=== PATIENT | female | born 1965 | race Caucasian/White ===

== ENCOUNTER 2020-10-27 10:00 | Emergency (ER) | payer MEDICARE, OTHER, SELFPAY ==
--- NOTE | ~2020-10-27 | US_ITS ---
EXAMINATION: US ABDOMEN LIMITED CLINICAL INFORMATION: Right upper quadrant pain. COMPARISON: None TECHNIQUE: Real-time imaging of the right upper quadrant abdominal viscera. FINDINGS: PANCREAS: No abnormal mass identified. No pancreatic duct dilatation is seen. No peripancreatic fluid. LIVER: There is a 7 mm cyst seen within the right lobe. No suspicious solid mass identified. The liver is normal in size. The liver contour is normal. Parenchymal echogenicity is normal. There is no intrahepatic biliary duct dilatation seen. GALLBLADDER: Cholelithiasis is present. No definite gallbladder wall thickening or fluid within the gallbladder wall is seen. No pericholecystic fluid is noted. There is tenderness to palpation overlying the gallbladder wall scanning. COMMON BILE DUCT: Normal in caliber measuring 0.3 cm in diameter. RIGHT KIDNEY: Normal. No hydronephrosis. No renal calculi or focal parenchymal lesions. The kidney measures 11.8 cm in maximum dimension. FREE FLUID: None. US/US abdomen limited IMPRESSION: Cholelithiasis without definite acute cholecystitis.
[2020-10-27 10:06] VITALS: BP 128/69; PULSE 92; RESP 18; TEMP 36.7; O2SAT 99; BMI 34.3
[2020-10-27 12:18] LABS: MANUAL DIFF FLAG NO
[2020-10-27 12:22] LABS: Glucose Urine UA NEG (NEG); Leukocyte Esterase Urine NEG (NEG); Nitrite Urine NEG (NEG); Specific Gravity - Urine 1.025 (1.005-1.025); Urine Blood NEG (NEG); Urine Ketones NEG (NEG); Urine Protein NEG (NEG-TRACE)
[2020-10-27 12:23] LABS: Appearance Urine CLEAR; Color Urine YELLOW
[2020-10-27 12:25] LABS: Basophils Absolute Auto 0.1 X10*3/uL (0.0-0.2); Basophils Percent Auto 0.8 % (0-2); Eosinophils Absolute Auto 0.2 X10*3/uL (0.0-0.4); Eosinophils Percent Auto 2.8 % (0-4); Hematocrit 40.8 % (37-47); Hemoglobin 13.4 g/dl (12.0-16.0); Imm Gran Abs Auto 0.05 X10*3/uL (0.00-0.03); Imm Gran Pct Auto 0.6 % (0.0-0.4); Lymphocytes Absolute Auto 2.3 X10*3/uL (1.2-4.9); Lymphocytes Percent Auto 28.8 % (20-40); Mean Corpuscular HGB Conc 32.8 g/dl (31.0-35.0); Mean Corpuscular Hemoglobin 28.5 pg (27.0-33.0); Mean Corpuscular Volume 86.8 fL (80-98); Mean Platelet Volume 10.4 fL (9.4-12.3); Monocytes Absolute Auto 0.5 X10*3/uL (0.1-1.2); Monocytes Percent Auto 5.9 % (2-11); Neutrophils Absolute Auto 4.9 X10*3/uL (2.0-8.3); Neutrophils Percent Auto 61.1 % (45-73); Platelet Count 401 X10*3/uL (160-400); Red Cell Distribution Width 13.8 % (11.0-16.0)
[2020-10-27 12:47] LABS: Anion Gap 12 (12-20); Blood Urea Nitrogen 20 mg/dL (9-16); Calcium 9.6 mg/dL (8.4-10.2); Carbon Dioxide 25 mmol/L (22-29); Creatinine Clr Calc Pharmacy 86.5; Estimated Glomerular Filt Rate > 60; Glucose Random 97 mg/dL (60-115)
[2020-10-27 12:49] LABS: Chloride 107 mmol/L (96-108); Potassium 3.8 mmol/L (3.3-5.1); Sodium 140 mmol/L (135-145)
--- NOTE | 2020-10-27 13:40 | ED_ITS ---
HPI - Abdominal Pain General Chief Complaint: Abdominal Pain Stated Complaint: ABD PAIN Time Seen by Provider: 10/27/20 13:39 Source: patient Mode of arrival: ambulatory Limitations: no limitations History of Present Illness HPI narrative: 54 years old female came in for evaluation of abdominal pain. Pain started few months ago, localized to the upper abdomen/right upper quadrant, described as intermittent pain when it is there pain is severe 8/10, no other associated symptoms no nausea or vomiting or fever. Nothing makes the pain worse specifically food, nothing make it better. Patient declined drinking alcohol or the pain association with food. Related Data Previous Rx's Medication Instructions Recorded omeprazole magnesium [Prilosec OTC] 20 mg PO BID #60 tab 10/27/20 Allergies Allergy/AdvReac Type Severity Reaction Status Date / Time almond Allergy Unknown HIVES Unverified 02/21/20 18:01 citalopram [CITALOPRAM] Allergy Unknown HIVES Unverified 02/21/20 18:01 lamotrigine [From LAMICTAL] Allergy Unknown RASH Unverified 02/21/20 18:01 oxcarbazepine Allergy Unknown RASH Unverified 02/21/20 18:01 [From TRILEPTAL] paroxetine [PAROXETINE] Allergy Unknown HIVE Unverified 02/21/20 18:01 sertraline [From ZOLOFT] Allergy Unknown RASH Unverified 02/21/20 18:01 1st Choice Lancets Thin Allergy Unknown Uncoded 09/03/13 00:00 HYBROMIDE Allergy Unknown HIVES Uncoded 02/21/20 18:01 lamotrigine Allergy Unknown Uncoded 09/03/13 00:00 par Allergy Unknown Uncoded 09/03/13 00:00 PYSCH MED Allergy Unknown Uncoded 02/21/20 18:01 Review of Systems Review of Systems All other systems are reviewed and are negative Constitutional: Reports as per HPI and Reports no additional constitutional complaints Eyes: Reports as per HPI and Reports no additional eye complaints Reports system reviewed and no additional complaints, except as documented Cardiovascular: Reports as per HPI and Reports no additional cardiovascular complaints Respiratory: Reports as per HPI and Reports no additional respiratory complaints Gastrointestinal: Reports as per HPI and Reports no additional gastrointestinal complaints Genitourinary: Reports no additional female genitourinary complaints Musculoskeletal: Reports no additional musculoskeletal complaints Skin/Breast: Reports system reviewed and no additional complaints, except as docu Psychiatric: Reports no additional psychiatric complaints Endocrine: Reports no additional endocrine complaints Hematologic/Lymphatic: Reports no additional hematologic/lymphatic complaints Allergic/Immunologic: Reports no additional allergic/immunologic complaints Reports system reviewed and no additional complaints, except as documented and Reports Abnormal speech present Physical Exam Vital Signs: Vital Signs: Last Vital Signs Temp 98.1 F 10/27/20 10:06 Pulse 81 10/27/20 14:10 Resp 14 10/27/20 14:10 BP 132/80 10/27/20 14:10 Pulse Ox 96 10/27/20 14:10 Body Mass Index 34.3 Vital signs have been reviewed as appeared to be correct. Blood pressure normal. Heart rate normal. Respiration rate normal. Temperature normal. Oxygen saturation normal. Appearance: Alert. Oriented X3. No acute distress. Head: Normal external exam. Normocephalic. Atraumatic. No Glover signs noted. No raccoon eyes noted Eyes: PERRLA. EOMI. Conjunctiva and sclera normal. Eyelids normal. ENT: TM's Normal. Pharynx normal. Uvula midline. Moist mucous membranes. No trismus noted. No drooling noted. No muffled voice noted. Neck: Normal inspection. Neck supple. FROM. No adenopathy. Thyroid Normal. No meningeal signs. No neck mass noted. CVS: Normal heart rate and rhythm. Heart sound normal. No murmurs noted. Pulses normal throughout. Respiratory: No respiratory distress. Painless inspiration. Breath sounds normal. No wheezes/rales/rhonchi noted. Chest nontender. No accessory muscle usage noted or decreased air movement noted. Abdomen: Soft, mild epigastric tenderness, no rebound tenderness, no guarding.. Bowel sounds normal in all 4 quadrants. No distention noted. No organomegaly noted. No visible injury noted. Back: No CVA tenderness. Full range of motion noted. Skin: Skin warm and dry. Normal skin color. Normal skin turgor. No rashes/lesions/lacerations noted. Extremities: No lower extremity edema. Extremities exhibit normal range of motion. Extremities nontender. Neuro: Oriented X 3. No motor deficit. No sensory deficit. Reflexes normal. Course Course Course Narrative: Upper abdominal pain likely combination of acute gastritis/cholelithiasis. Discharge the patient with Prilosec and follow up with surgery/GI. MDM - Abdominal Pain Lab Data Attestation: I reviewed the patient's lab results. Result diagrams: 10/27/20 12:09 10/27/20 12:09 Labs: Lab Results 10/27/20 10/27/20 10/27/20 Range/Units 12:09 12:09 12:09 WBC 8.0 (4.8-10.8) X10*3/uL RBC 4.70 (4.20-5.50) X10*6/uL Hgb 13.4 (12.0-16.0) g/dl Hct 40.8 (37-47) % MCV 86.8 (80-98) fL MCH 28.5 (27.0-33.0) pg MCHC 32.8 (31.0-35.0) g/dl RDW 13.8 (11.0-16.0) % Plt Count 401 H (160-400) X10*3/uL MPV 10.4 (9.4-12.3) fL Immature Gran % (Auto) 0.6 H (0.0-0.4) % Neut % (Auto) 61.1 (45-73) % Lymph % (Auto) 28.8 (20-40) % [place] % (Auto) 5.9 (2-11) % Eos % (Auto) 2.8 (0-4) % Baso % (Auto) 0.8 (0-2) % Lymph # (Auto) 2.3 (1.2-4.9) X10*3/uL [place] # (Auto) 0.5 (0.1-1.2) X10*3/uL Eos # (Auto) 0.2 (0.0-0.4) X10*3/uL Baso # (Auto) 0.1 (0.0-0.2) X10*3/uL Abs Immat Gran (auto) 0.05 H (0.00-0.03) X10*3/uL Absolute Neuts (auto) 4.9 (2.0-8.3) X10*3/uL Absolute Nucleated RBC 0.000 (0.0-0.012) X10*3/uL Nucleated RBC % (auto) 0.0 (0.0-0.2) /100WBC Sodium 140 (135-145) mmol/L Potassium 3.8 (3.3-5.1) mmol/L Chloride 107 (96-108) mmol/L Carbon Dioxide 25 (22-29) mmol/L Anion Gap 12 (12-20) BUN 20 H (9-16) mg/dL Creatinine 0.82 (0.5-1.4) mg/dL Estim Creat Clear Calc 86.5 Estimated GFR > 60 Random Glucose 97 (60-115) mg/dL Calcium 9.6 (8.4-10.2) mg/dL Urine Color YELLOW Urine Appearance CLEAR Urine pH 6.0 (5.0-8.0) Ur Specific [place] 1.025 (1.005-1.025) Urine Protein NEG (NEG-TRACE) MG/DL Urine Glucose (UA) NEG (NEG) MG/DL Urine Ketones NEG (NEG) MG/DL Urine Blood NEG (NEG) Urine Nitrite NEG (NEG) Ur Leukocyte Esterase NEG (NEG) Imaging Data Abdominal ultrasound.: Radiologist's impression: Cholelithiasis without definite acute cholecystitis. Discharge Plan Discharge Clinical Impression: Gastritis Qualifiers: Gastritis type: unspecified gastritis Chronicity: unspecified Gastritis bleeding: without bleeding Qualified Code(s): K29.70 - Gastritis, unspecified, without bleeding Cholelithiasis Qualifiers: Cholelithiasis location: gallbladder Cholecystitis presence: without cholecystitis Patient Disposition: Home, Self-Care Instructions: Gastritis (ED), Gallstones (ED) Prescriptions: New omeprazole magnesium [Prilosec OTC] 20 mg tablet,delayed release (DR/EC) 20 mg PO BID Qty: 60 RF: 0 Referrals: Enoch Mcgraw MD [Physician] - 2 days Hiral Johnson MD [Primary Care Provider] - 2 days Segundo Blunt MD [Physician] - 2 days [facility] Past Medical History Medical History Hernia Social History Social History Alcohol intake: never Smoking Status: Never smoker Use of substances other than those prescribed or required for medical reasons: Yes Substance Use Type: Marijuana Advance Directives: Yes Advance Directives Information Provided: Yes Advance Directives on File: No Patient : No
[2020-10-27 14:10] VITALS: BP 132/80; PULSE 81; RESP 14; O2SAT 96
== END 2020-10-27 16:08 | disposition home or self-care (01) ==
PROVIDERS: Emergency Provider Emergency Medicine; PCP Internal Medicine
DX: K29.70 Gastritis, unspecified, without bleeding (principal); K80.20 Calculus of gallbladder without cholecystitis without obstruction; R10.11 Right upper quadrant pain; I10 Essential (primary) hypertension; F12.90 Cannabis use, unspecified, uncomplicated
CPT/HCPCS: 36415; 76705; 80048; 81003; 85025; 99284

== ENCOUNTER → 2020-10-30 13:47 | Outpatient (BNVA) | payer MEDICARE, OTHER, SELFPAY | PROVIDERS: PCP Internal Medicine; Visit Provider Surgery | DX: K80.00 Calculus of gallbladder with acute cholecystitis without obstruction (principal) | CPT/HCPCS: 99202 ==

== ENCOUNTER 2020-11-10 07:39 | Day surgery (SDC) | payer MEDICARE, OTHER, MEDICAID, SELFPAY ==
--- NOTE | 2020-11-07 10:54 | HO.ANESPROP2 ---
Documented by User: Flor Anisa 11/07/20 11:00 HPI - Anesthesia Eval Consult details Narrative: 54yo F for Cholecystectomy Laparoscopic, Poss Open *mult med allergies* PMFSH Active Problems Active Problems: All Active Problems (Updated 10/30/20 @ 16:49 by Segundo Blunt MD) Acute cholecystitis due to biliary calculus (Acute) Past Medical History Medical History (Updated 11/10/20 @ 08:12 by Magnolia Nolen) Asthma Benign positional vertigo Bipolar disorder Hernia HTN (hypertension) PCOS (polycystic ovarian syndrome) PTSD (post-traumatic stress disorder) Family History Family History Brother Prostate cancer Father Malignant neoplasm of skin of back Maternal Uncle Prostate cancer Family/Other Prostate cancer Family/Other Breast cancer Surgical History Surgical History History of abdominoplasty History of delivery History of medial meniscus repair of left knee History of repair of ACL History of umbilical hernia Social History Social History Alcohol intake: never Patient Tobacco Use Status: Never used Tobacco Use of substances other than those prescribed or required for medical reasons: Yes Substance Use Type: Marijuana Substance Use Frequency: Daily Are you DNR?: No Advance Directives: No Advance Directives Information Provided: Yes Meds Allergies Allergy/AdvReac Type Severity Reaction Status Date / Time almond Allergy Unknown HIVES Unverified 02/21/20 18:01 citalopram [CITALOPRAM] Allergy Unknown HIVES Unverified 02/21/20 18:01 lamotrigine [From LAMICTAL] Allergy Unknown RASH Unverified 02/21/20 18:01 oxcarbazepine Allergy Unknown RASH Unverified 02/21/20 18:01 [From TRILEPTAL] paroxetine [PAROXETINE] Allergy Unknown HIVE Unverified 02/21/20 18:01 sertraline [From ZOLOFT] Allergy Unknown RASH Unverified 02/21/20 18:01 HYBROMIDE Allergy Unknown HIVES Uncoded 02/21/20 18:01 PYSCH MED Allergy Unknown Unknown Uncoded 11/10/20 07:56 Home Medications Medication Instructions Recorded Confirmed Last Taken Type albuterol sulfate 90 mcg/actuation INHALATION 10/30/20 10/30/20 Unknown History aerosol inhaler alprazolam 2 mg tablet 2 mg PO TID PRN 10/30/20 10/30/20 11/10/20 History bupropion HCl 150 mg 24 hr tablet, 150 mg PO BEDTIME 10/30/20 10/30/20 11/10/20 History extended release cetirizine 10 mg tablet 10 mg PO DAILY 10/30/20 10/30/20 Unknown History hydrochlorothiazide 25 mg tablet 50 mg PO DAILY 10/30/20 10/30/20 11/10/20 History ibuprofen 800 mg tablet 800 mg PO Q8H PRN 10/30/20 10/30/20 Unknown History metformin 1,000 mg tablet 500 mg PO QAM 10/30/20 10/30/20 11/10/20 History nifedipine 90 mg tablet,extended 90 mg PO DAILY 10/30/20 10/30/20 11/10/20 History release Exam Exam Date and Time: November 07, 2020 1054 Pertinent Lab Results Pertinent Lab Results: Laboratory Tests 10/27/20 10/27/20 12:09 12:09 WBC 8.0 Hgb 13.4 Hct 40.8 Plt Count 401 H Sodium 140 Potassium 3.8 Chloride 107 Carbon Dioxide 25 BUN 20 H Creatinine 0.82 Assessment and Plan Assessment Anesthesia Assessment: Chart Reviewed Documented by User: Magnolia Nolen 11/10/20 08:17 [facility] Past Medical History Medical History (Updated 11/10/20 @ 08:12 by Magnolia Nolen) Asthma Benign positional vertigo Bipolar disorder Hernia HTN (hypertension) PCOS (polycystic ovarian syndrome) PTSD (post-traumatic stress disorder) Family History Family History Brother Prostate cancer Father Malignant neoplasm of skin of back Maternal Uncle Prostate cancer Family/Other Prostate cancer Family/Other Breast cancer Family history of problems with anesthesia: No Surgical History Surgical History History of abdominoplasty History of delivery History of medial meniscus repair of left knee History of repair of ACL History of umbilical hernia History of Problems with Anesthesia: No Social History Social History Alcohol intake: never Patient Tobacco Use Status: Never used Tobacco Use of substances other than those prescribed or required for medical reasons: Yes Substance Use Type: Marijuana Substance Use Frequency: Daily Are you DNR?: No Advance Directives: No Advance Directives Information Provided: Yes Meds Allergies Allergy/AdvReac Type Severity Reaction Status Date / Time almond Allergy Unknown HIVES Unverified 02/21/20 18:01 citalopram [CITALOPRAM] Allergy Unknown HIVES Unverified 02/21/20 18:01 lamotrigine [From LAMICTAL] Allergy Unknown RASH Unverified 02/21/20 18:01 oxcarbazepine Allergy Unknown RASH Unverified 02/21/20 18:01 [From TRILEPTAL] paroxetine [PAROXETINE] Allergy Unknown HIVE Unverified 02/21/20 18:01 sertraline [From ZOLOFT] Allergy Unknown RASH Unverified 02/21/20 18:01 HYBROMIDE Allergy Unknown HIVES Uncoded 02/21/20 18:01 PYSCH MED Allergy Unknown Unknown Uncoded 11/10/20 07:56 Home Medications Medication Instructions Recorded Confirmed Last Taken Type albuterol sulfate 90 mcg/actuation INHALATION 10/30/20 10/30/20 Unknown History aerosol inhaler alprazolam 2 mg tablet 2 mg PO TID PRN 10/30/20 10/30/20 11/10/20 History bupropion HCl 150 mg 24 hr tablet, 150 mg PO BEDTIME 10/30/20 10/30/20 11/10/20 History extended release cetirizine 10 mg tablet 10 mg PO DAILY 10/30/20 10/30/20 Unknown History hydrochlorothiazide 25 mg tablet 50 mg PO DAILY 10/30/20 10/30/20 11/10/20 History ibuprofen 800 mg tablet 800 mg PO Q8H PRN 10/30/20 10/30/20 Unknown History metformin 1,000 mg tablet 500 mg PO QAM 10/30/20 10/30/20 11/10/20 History nifedipine 90 mg tablet,extended 90 mg PO DAILY 10/30/20 10/30/20 11/10/20 History release Exam Height,Weight and Vital Signs: Vital Signs Temp Pulse Resp BP Pulse Ox 11/10/20 08:01 97.3 F 80 16 119/69 98 Airway Mallampati Class: II TM Dist: >3cm Neck ROM: Full Loose/Missing/Broken Teeth: Yes (Molar) Heart: RRR Lungs: CTAB Assessment and Plan Assessment Anesthesia Assessment: Anesthesia Plan Discussed and Chart Reviewed Final Anesthetic Review NPO: Yes ASA Class: II Final Preanesthetic Review: No Changes in Pt Med Stat, Meds/Allgs Chart Reviewed, Consent Obtained/Reviewed and Anes Risks/Benef Reviewed Procedure Risk: Intermediate Assessment/Block/Sedation in SS: Assess/Block/Sedation-SS Anesthetic Plan Anesthetic Plan: GA Disposition: Standard PACU
[2020-11-10] VITALS (9 sets, daily range): BP systolic 119–151; BP diastolic 69–88; PULSE 59–85; RESP 16–19; TEMP 36.3–36.7; O2SAT 97–99; BMI 36.2
[2020-11-10] MEDS: Lactated Ringers 1,000 ML 100 ML IVCONT (08:23)
--- NOTE | 2020-11-10 09:35 | MHC.SHP ---
Pre-Procedural Eval Section A The patient is an INPATIENT: No Changes since office visit: Yes Patient answered all questions; No Cold of Flu in the past 2 weeks, No New Medical Problems and No Changes in Medication The History & Physical has been completed within 30 days and I have reviewed it.: Yes Section B Chief Complaint: Acute cholecystitis due to biliary calculus Allergies: Allergies Allergy/AdvReac Type Severity Reaction Status Date / Time almond Allergy Unknown HIVES Verified 11/10/20 08:23 citalopram [CITALOPRAM] Allergy Unknown HIVES Verified 11/10/20 08:23 lamotrigine [From LAMICTAL] Allergy Unknown RASH Verified 11/10/20 08:23 oxcarbazepine Allergy Unknown RASH Verified 11/10/20 08:23 [From TRILEPTAL] paroxetine [PAROXETINE] Allergy Unknown HIVE Verified 11/10/20 08:23 sertraline [From ZOLOFT] Allergy Unknown RASH Verified 11/10/20 08:23 HYBROMIDE Allergy Unknown HIVES Uncoded 02/21/20 18:01 PYSCH MED Allergy Unknown Unknown Uncoded 11/10/20 07:56 Plan Diagnosis/Plan: Unchanged I have reviewed the history and physical and performed a pertinent physical examination on my patient. No changes have occurred unless specified.
--- NOTE | 2020-11-10 11:17 | W.PM.OPN ---
Operative Note Operative Note Date of Service: 11/10/20 Narrative: Preoperative diagnosis: Acute cholecystitis due to cholelithiasis Postoperative diagnosis: Same Procedure: Laparoscopic cholecystectomy Surgeon: Segundo Blunt MD Medical Doctor Nuclear Medicine: No physician Anesthesia: General endotracheal Indications for procedure: 54-year-old female presenting with complaints of abdominal pain in the right upper quadrant associated with nausea vomiting and constipation. Patient was found to have multiple gallstones within the gallbladder with tenderness with palpation of the gallbladder suggestive of acute cholecystitis. Operative findings: Both chronic and acute changes to the gallbladder wall with adhesions and pericholecystic fluid. Multiple gallstones noted within the gallbladder Specimen: Estimated blood loss: 5 mL Complications: None Procedure details: Patient was brought to the OR and placed in a supine position. After administering general anesthesia the patient's abdomen was prepped with ChloraPrep and draped in a sterile fashion. Local anesthesia consisting of 0.25% Sensorcaine with epinephrine was infiltrated in a periumbilical region. A 5 mm incision was made above the umbilicus in a transverse fashion. The Veress needle was then inserted while elevating abdominal cavity with towel clips. After positive drop test the abdomen was insufflated to a pressure of 15 mm of mercury. The Veress needle was then removed and a 5 mm trocar inserted. The camera was inserted in the abdomen explored. A 12 mm trocar was then placed in the epigastrium and 2 5 mm trocars placed in the right upper quadrant. The patient was placed in reverse Trendelenburg positioning and rotated to the left. The gallbladder was grasped with the fundus and retracted cephalad.. Multiple adhesions were taken down using Endo Juan Miguel and Dolphin dissector. The infundibulum was then grasped and retracted away from the liver bed. The Dolphin dissected was then used to dissect the peritoneum off the infundibulum to reveal the junction with the cystic duct. Cystic artery was noted slightly medial and posterior to the cystic duct and behind a large node of Calot. After obtaining a critical view the cystic duct was doubly clipped and divided. The cystic artery was then doubly clipped and divided. The gallbladder was then dissected off the liver bed using electrocautery with an L hook. Hemostasis was assured all times using the electrocautery. When the gallbladder is completely dissected off the liver bed was placed in an Endo-Catch bag and brought out through the epigastric incision. The gallbladder was sent to pathology for further examination. The abdomen was then re-examined. The liver bed was irrigated and suctioned dry. No bleeding or bile leak could be identified. CO2 was then evacuated and all trocars removed. Fascia was closed at the epigastric incision using a [id number] Polysorb suture. Skin was closed in all incisions using a subcuticular 4 0 Polysorb suture. Additional local anesthesia was infiltrated at this time. Sterile dressings consisting of Steri-Strips, 2 x 2 gauze, and Tegaderm were then applied. The patient tolerated the procedure well. Sponge instrument and needle counts reported as correct. The patient was transferred to PACU in stable condition.
[2020-11-10] MEDS: Magnesium Hydrox/Alum Hydrox 30 ML ORAL.SUSP PO (11:38)
[2020-11-10] MEDS: ondansetron HCL 4 MG/2 ML VIAL IVPUSH (11:42)
== END 2020-11-10 15:35 | disposition home or self-care (01) ==
PROVIDERS: PCP Internal Medicine; Visit Provider Surgery
PROC: 0FT44ZZ Resection of Gallbladder, Percutaneous Endoscopic Approach (ICD-10-PCS; CPT 47562; principal; 2020-11-10 09:10)
DX: K80.66 Calculus of gallbladder and bile duct with acute and chronic cholecystitis without obstruction (principal); K82.8 Other specified diseases of gallbladder; J45.909 Unspecified asthma, uncomplicated; I10 Essential (primary) hypertension; H81.10 Benign paroxysmal vertigo, unspecified ear; F31.9 Bipolar disorder, unspecified; F43.10 Post-traumatic stress disorder, unspecified; E28.2 Polycystic ovarian syndrome; Z79.899 Other long term (current) drug therapy
CPT/HCPCS: 47562; 88304; J0131; J1100; J1885; J2250; J2405; J2550; J3010

== ENCOUNTER → 2020-11-20 10:09 | Outpatient (BNVA) | payer MEDICARE, MEDICAID, OTHER, SELFPAY | PROVIDERS: PCP Internal Medicine; Visit Provider Surgery | DX: Z48.815 Encounter for surgical aftercare following surgery on the digestive system (principal); Z87.19 Personal history of other diseases of the digestive system | CPT/HCPCS: 99212 ==

== ENCOUNTER 2020-11-23 11:29 | Emergency (ER) | payer MEDICARE, MEDICAID, OTHER, SELFPAY ==
--- NOTE | ~2020-11-23 | CT_ITS ---
EXAMINATION: CT ABDOMEN AND PELVIS WITH CONTRAST CLINICAL INFORMATION: Right upper quadrant pain. Post laparoscopic cholecystectomy. COMPARISON: Previous abdominal ultrasound 10/27/2020 TECHNIQUE: Multidetector volumetric images were obtained from the superior aspect of the liver through the pubic symphysis following administration 85 mL of Omnipaque 350 intravenous contrast. Sagittal and coronal reformatted images were obtained on the technologist's workstation. Oral contrast: Yes This CT examination was performed using dose optimization techniques as appropriate, variously including the following: *Automated exposure control *Adjustment of mA and/or kV according to patient size (this includes techniques or standardized protocols for targeted exams where dose is matched to indication/reason for exam; i.e. extremities or head) *Use of iterative reconstruction technique DLP: 699 mGy-cm FINDINGS: LUNG BASES: There is subsegmental atelectasis at the lung bases. LIVER, GALLBLADDER, AND BILIARY TREE: There are several small low-attenuation liver lesions. The larger lesions are compatible with cysts. Largest lesion measures 1 cm in the lateral segment of the left lobe of the liver axial image 25 series 3. Smaller lesions are difficult to definitely characterize due to small size but also probably represent cysts. The liver is enlarged, right lobe measuring 20 cm in length and the gallbladder has been removed. There are postsurgical changes seen in the gallbladder fossa. No fluid collection is seen. There is no intra or extrahepatic biliary duct dilatation. PANCREAS: Unremarkable. SPLEEN: Unremarkable. ADRENAL GLANDS: Unremarkable. KIDNEYS AND URETERS: There is a 1.5 cm lesion exophytic to the upper pole of the left kidney axial image 19 series 3 concerning for a renal mass. The kidneys are otherwise unremarkable. BLADDER: Unremarkable. GASTROINTESTINAL TRACT: There is mild diverticulosis of the colon. Small and large bowel is otherwise unremarkable. The appendix is unremarkable. There is apparent wall thickening of the proximal stomach. This may be due to contraction ABDOMINAL WALL: There are postsurgical changes to the anterior abdominal wall. No fluid collection or hernia is seen. LYMPH NODES: Normal. VASCULAR: Unremarkable. PELVIC VISCERA: Unremarkable. OSSEOUS STRUCTURES: There are degenerative changes of the spine. CT/CT abdomen pelvis w con IMPRESSION: Postsurgical changes following cholecystectomy. No fluid collection or biliary duct dilatation seen. Enlarged liver and probable small liver cysts. 1.5 cm lesion exophytic to the upper pole the left kidney worrisome for a solid mass. Dedicated CT or MRI of the kidneys without contrast recommended. Mild diverticulosis of the colon.
[2020-11-23 11:44] VITALS: BP 136/87; PULSE 103; RESP 16; TEMP 36.4; O2SAT 96; BMI 35.6
--- NOTE | 2020-11-23 13:31 | ED_ITS ---
HPI - Abdominal Pain General Chief Complaint: Abdominal Pain Stated Complaint: sharp Pain, dizziness Time Seen by Provider: 11/23/20 12:06 Source: patient and old records reviewed Mode of arrival: ambulatory Limitations: no limitations History of Present Illness HPI narrative: 54 yo female with hx of bipolar, HTN, asthma, GERD had lap cholecystectomy on 11/10 comes in today with c/o sharp RUQ pain and epigastric eliza n that radiates to her back and takes her breath, she feels nauseated as well, denies heavy lifting, she notes she was doing great post op until Tuesday MD elicited complaint: abdominal pain Pertinent past history: other (recent lap anibal 11/10) Onset (ago): day(s) (2) Pain Consistency: constant Location: epigastric Severity: moderate Quality: stabbing Radiation: back Migration to: no migration Exacerbating factors: movement Relieving factors: nothing Context: recent surgery/procedure Associated symptoms: nausea Related Data Home Medications Medication Instructions Recorded Confirmed albuterol sulfate 90 mcg/actuation INHALATION 10/30/20 11/20/20 aerosol inhaler alprazolam 2 mg tablet 2 mg PO TID PRN 10/30/20 11/20/20 bupropion HCl 150 mg 24 hr tablet, 150 mg PO BEDTIME 10/30/20 11/20/20 extended release cetirizine 10 mg tablet 10 mg PO DAILY 10/30/20 11/20/20 hydrochlorothiazide 25 mg tablet 50 mg PO DAILY 10/30/20 11/20/20 ibuprofen 800 mg tablet 800 mg PO Q8H PRN 10/30/20 11/20/20 metformin 1,000 mg tablet 500 mg PO QAM 10/30/20 11/20/20 nifedipine 90 mg tablet,extended 90 mg PO DAILY 10/30/20 11/20/20 release Previous Rx's Medication Instructions Recorded omeprazole magnesium [Prilosec OTC] 20 mg PO BID #60 tab 10/27/20 Allergies Allergy/AdvReac Type Severity Reaction Status Date / Time almond Allergy Unknown HIVES Verified 11/23/20 11:49 citalopram [CITALOPRAM] Allergy Unknown HIVES Verified 11/23/20 11:49 lamotrigine [From LAMICTAL] Allergy Unknown RASH Verified 11/23/20 11:49 oxcarbazepine Allergy Unknown RASH Verified 11/23/20 11:49 [From TRILEPTAL] paroxetine [PAROXETINE] Allergy Unknown HIVE Verified 11/23/20 11:49 sertraline [From ZOLOFT] Allergy Unknown RASH Verified 11/23/20 11:49 HYBROMIDE Allergy Unknown HIVES Uncoded 11/23/20 11:49 PYSCH MED Allergy Unknown Unknown Uncoded 11/23/20 11:49 Review of Systems Review of Systems Constitutional : No Weight loss, No Fever, No Chills ENT/Mouth : No sore throat, No Rhinorrhea Eyes: No Swelling, No Redness Cardiovascular : No Chest Pain, pos SOB, NoEdema Respiratory : No Cough, No Sputum, No Wheezing Gastrointestinal : Positive Nausea, no Vomiting, no Diarrhea, positive abdominal Pain, No Hematochezia, No Melena Genitourinary : No Dysuria, No Urinary Frequency, No Hematuria, No Urgency Musculoskeletal : No joint pain, No Myalgias, No Joint Swelling Skin : No Skin Lesions, No rash Neuro : No Weakness, No Numbness, No Dizziness, No Headache Psych : No Anxiety/Panic, No Depression Heme/Lymph: No Bruising, No Lymphadenopathy Endocrine : No Polyuria, No Polydipsia All other systems reviewed and are negative. Physical Exam Vital Signs: Vital Signs: Last Vital Signs Temp 98.3 F 11/23/20 14:13 Pulse 85 11/23/20 14:13 Resp 18 11/23/20 14:13 BP 130/85 11/23/20 14:13 Pulse Ox 98 11/23/20 14:13 Body Mass Index 35.6 Appearance: Alert. Oriented X3. No acute distress. Eyes: Pupils equal, round and reactive to light. ENT: Pharynx normal. Neck: Normal inspection. Neck supple. CVS: Normal heart rate and rhythm. Pulses normal. Respiratory: No respiratory distress. Breath sounds normal. Abdomen: Soft and moderate ttp in RUQ and epigastric area incisions are c/d/i Skin: Skin warm and dry. Normal skin color. Normal skin turgor. Extremities: No lower extremity edema. No calf ttp Neuro: Oriented X 3. No motor deficit. No sensory deficit. Course Course Course Narrative: the pain is very localized to her RUQ and reproduceable to palpation she has no hypoxia/signs of DVT it is not pleuritic in nature, doubt PE at this time labs and CT scan stable reviewed with Dr. Blunt he will see her this week MDM - Abdominal Pain MDM Narrative Medical decision making narrative: 54 yo female with hx of bipolar, HTN, asthma, GERD had lap cholecystectomy on 11/10 comes in today with c/o sharp RUQ pain and epigastric pain that radiates to her back and takes her breath, she feels nauseated as well, denies heavy lifting, she notes she was doing great post op until Tuesday at this time given her symptoms the concern is for retatined stone, it is not pleuritic in nature and the pain is localized to her RUQ and epigastric area at this time will need labs, CT scan for retained stone, IV morphine for pain Lab Data Result diagrams: 11/23/20 13:54 11/23/20 13:54 Labs: Lab Results 11/23/20 11/23/20 11/23/20 Range/Units 13:54 13:54 13:54 WBC 10.6 (4.8-10.8) X10*3/uL RBC 4.34 (4.20-5.50) X10*6/uL Hgb 12.4 (12.0-16.0) g/dl Hct 36.8 L (37-47) % MCV 84.8 (80-98) fL MCH 28.6 (27.0-33.0) pg MCHC 33.7 (31.0-35.0) g/dl RDW 13.8 (11.0-16.0) % Plt Count 453 H (160-400) X10*3/uL MPV 9.9 (9.4-12.3) fL Immature Gran % (Auto) 0.2 (0.0-0.4) % Neut % (Auto) 67.3 (45-73) % Lymph % (Auto) 21.6 (20-40) % Glades % (Auto) 4.5 (2-11) % Eos % (Auto) 6.0 H (0-4) % Baso % (Auto) 0.4 (0-2) % Lymph # (Auto) 2.3 (1.2-4.9) X10*3/uL Glades # (Auto) 0.5 (0.1-1.2) X10*3/uL Eos # (Auto) 0.6 H (0.0-0.4) X10*3/uL Baso # (Auto) 0.0 (0.0-0.2) X10*3/uL Abs Immat Gran (auto) 0.02 (0.00-0.03) X10*3/uL Absolute Neuts (auto) 7.1 (2.0-8.3) X10*3/uL Absolute Nucleated RBC 0.000 (0.0-0.012) X10*3/uL Nucleated RBC % (auto) 0.0 (0.0-0.2) /100WBC Sodium 142 (135-145) mmol/L Potassium 4.4 (3.3-5.1) mmol/L Chloride 106 (96-108) mmol/L Carbon Dioxide 24 (22-29) mmol/L Anion Gap 16 (12-20) BUN 16 (9-16) mg/dL Creatinine 0.82 (0.5-1.4) mg/dL Estim Creat Clear Calc 81.9 Estimated GFR > 60 Random Glucose 82 (60-115) mg/dL Lactic Acid (0.5-2.0) mmol/L Calcium 9.4 (8.4-10.2) mg/dL Magnesium 1.9 (1.6-2.6) mg/dL Total Bilirubin 0.2 (0.0-1.0) mg/dL Direct Bilirubin < 0.2 (0.0-0.5) mg/dL AST 30 (5-31) U/L ALT 20 (0-31) U/L Alkaline Phosphatase 140 H (39-117) U/L Total Protein 8.4 H (6.5-8.0) g/dL Albumin 4.2 (3.5-5.0) g/dL Lipase 21 (8-78) U/L 11/23/20 Range/Units 13:54 WBC (4.8-10.8) X10*3/uL RBC (4.20-5.50) X10*6/uL Hgb (12.0-16.0) g/dl Hct (37-47) % MCV (80-98) fL MCH (27.0-33.0) pg MCHC (31.0-35.0) g/dl RDW (11.0-16.0) % Plt Count (160-400) X10*3/uL MPV (9.4-12.3) fL Immature Gran % (Auto) (0.0-0.4) % Neut % (Auto) (45-73) % Lymph % (Auto) (20-40) % Glades % (Auto) (2-11) % Eos % (Auto) (0-4) % Baso % (Auto) (0-2) % Lymph # (Auto) (1.2-4.9) X10*3/uL Glades # (Auto) (0.1-1.2) X10*3/uL Eos # (Auto) (0.0-0.4) X10*3/uL Baso # (Auto) (0.0-0.2) X10*3/uL Abs Immat Gran (auto) (0.00-0.03) X10*3/uL Absolute Neuts (auto) (2.0-8.3) X10*3/uL Absolute Nucleated RBC (0.0-0.012) X10*3/uL Nucleated RBC % (auto) (0.0-0.2) /100WBC Sodium (135-145) mmol/L Potassium (3.3-5.1) mmol/L Chloride (96-108) mmol/L Carbon Dioxide (22-29) mmol/L Anion Gap (12-20) BUN (9-16) mg/dL Creatinine (0.5-1.4) mg/dL Estim Creat Clear Calc Estimated GFR Random Glucose (60-115) mg/dL Lactic Acid 1.1 (0.5-2.0) mmol/L Calcium (8.4-10.2) mg/dL Magnesium (1.6-2.6) mg/dL Total Bilirubin (0.0-1.0) mg/dL Direct Bilirubin (0.0-0.5) mg/dL AST (5-31) U/L ALT (0-31) U/L Alkaline Phosphatase (39-117) U/L Total Protein (6.5-8.0) g/dL Albumin (3.5-5.0) g/dL Lipase (8-78) U/L Discharge Plan Discharge Clinical Impression: Abdominal pain Qualifiers: Abdominal location: right upper quadrant Qualified Code(s): R10.11 - Right uppe r quadrant pain Patient Disposition: Home, Self-Care Instructions: Abdominal Pain (ED) Additional Instructions: return to ED for any worsening symptoms or concerns Prescriptions: No Action omeprazole magnesium [Prilosec OTC] 20 mg tablet,delayed release (DR/EC) 20 mg PO BID Qty: 60 RF: 0 albuterol sulfate 90 mcg/actuation HFA aerosol inhaler inhalation RF: 0 alprazolam 2 mg tablet 2 mg PO TID PRN (Reason: Anxiety) RF: 0 bupropion HCl 150 mg tablet extended release 24 hr 150 mg PO BEDTIME RF: 0 hydrochlorothiazide 25 mg tablet 50 mg PO DAILY RF: 0 metformin 1,000 mg tablet 500 mg PO QAM RF: 0 nifedipine 90 mg tablet extended release 90 mg PO DAILY RF: 0 ibuprofen 800 mg tablet 800 mg PO Q8H PRN (Reason: pain) RF: 0 cetirizine 10 mg tablet 10 mg PO DAILY RF: 0 Referrals: Segundo Blunt MD [Physician] - 2 days (please call Tuesday he will see you this week) [facility] Past Medical History Attestation statement: The following information was validated with the patient. Medical History Asthma Benign positional vertigo Bipolar disorder Hernia HTN (hypertension) PCOS (polycystic ovarian syndrome) PTSD (post-traumatic stress disorder) Surgical History History of abdominoplasty History of delivery History of cholecystectomy History of medial meniscus repair of left knee History of repair of ACL History of umbilical hernia Family History Family History Brother Prostate cancer Father Malignant neoplasm of skin of back Maternal Uncle Prostate cancer Family/Other Prostate cancer Family/Other Breast cancer Social History Social History Alcohol intake: never Patient Tobacco Use Status: Never used Tobacco Use of substances other than those prescribed or required for medical reasons: Yes Substance Use Type: Marijuana Substance Use Frequency: Daily Last Used Substance: Hours (ago) Advance Directives: No Advance Directives Information Provided: No Patient : No
[2020-11-23 14:01] LABS: MANUAL DIFF FLAG NO
[2020-11-23 14:02] LABS: Basophils Percent Auto 0.4 % (0-2); Eosinophils Absolute Auto 0.6 X10*3/uL (0.0-0.4); Hematocrit 36.8 % (37-47); Hemoglobin 12.4 g/dl (12.0-16.0); Imm Gran Abs Auto 0.02 X10*3/uL (0.00-0.03); Imm Gran Pct Auto 0.2 % (0.0-0.4); Lymphocytes Absolute Auto 2.3 X10*3/uL (1.2-4.9); Lymphocytes Percent Auto 21.6 % (20-40); Mean Corpuscular HGB Conc 33.7 g/dl (31.0-35.0); Mean Corpuscular Hemoglobin 28.6 pg (27.0-33.0); Mean Corpuscular Volume 84.8 fL (80-98); Mean Platelet Volume 9.9 fL (9.4-12.3); Monocytes Absolute Auto 0.5 X10*3/uL (0.1-1.2); Monocytes Percent Auto 4.5 % (2-11); Neutrophils Absolute Auto 7.1 X10*3/uL (2.0-8.3); Neutrophils Percent Auto 67.3 % (45-73); Platelet Count 453 X10*3/uL (160-400); Red Blood Count 4.34 X10*6/uL (4.20-5.50); Red Cell Distribution Width 13.8 % (11.0-16.0); White Blood Count 10.6 X10*3/uL (4.8-10.8)
[2020-11-23] MEDS: 0.9 % Sodium Chloride 1,000 ML 999 ML IVCONT (14:03)
[2020-11-23] MEDS: Ketorolac Tromethamine 30 MG/ML VIAL IVPUSH (14:05)
[2020-11-23] MEDS: ondansetron HCL 4 MG/2 ML VIAL IVPUSH (14:06)
[2020-11-23] MEDS: Morphine Sulfate 4 MG/ML CARTRIDGE IVPUSH (14:06)
--- NOTE | 2020-11-23 14:11 | PC.NURSE ---
IV inserted, labs obtained, and pt medicated for pain and given IVF.
[2020-11-23 14:13] VITALS: BP 130/85; PULSE 85; RESP 18; TEMP 36.8; O2SAT 98
[2020-11-23 14:20] LABS: Lactic Acid 1.1 mmol/L (0.5-2.0)
[2020-11-23 14:29] LABS: Alanine Aminotransferase 20 U/L (0-31); Albumin Level 4.2 g/dL (3.5-5.0); Alkaline Phosphatase 140 U/L (39-117); Anion Gap 16 (12-20); Aspartate Amino Transferase 30 U/L (5-31); Bilirubin Direct < 0.2 mg/dL (0.0-0.5); Bilirubin Total 0.2 mg/dL (0.0-1.0); Blood Urea Nitrogen 16 mg/dL (9-16); Calcium 9.4 mg/dL (8.4-10.2); Carbon Dioxide 24 mmol/L (22-29); Chloride 106 mmol/L (96-108); Creatinine Clr Calc Pharmacy 81.9; Estimated Glomerular Filt Rate > 60; Glucose Random 82 mg/dL (60-115); Lipase 21 U/L (8-78); Magnesium 1.9 mg/dL (1.6-2.6); Potassium 4.4 mmol/L (3.3-5.1); Sodium 142 mmol/L (135-145); Total Protein 8.4 g/dL (6.5-8.0)
[2020-11-23] MEDS: iohexoL 350 MG/ML 100 ML INFUS..BTL IV (14:48)
== END 2020-11-23 15:56 | disposition home or self-care (01) ==
PROVIDERS: Emergency Provider Emergency Medicine; PCP Internal Medicine
DX: R10.11 Right upper quadrant pain (principal); J45.909 Unspecified asthma, uncomplicated; I10 Essential (primary) hypertension; Z79.899 Other long term (current) drug therapy; Z90.49 Acquired absence of other specified parts of digestive tract
CPT/HCPCS: 36415; 74177; 80048; 80076; 83605; 83690; 83735; 85025; 96361; 96374; 96375; 99284; 99285; J1885; J2270; J2405; Q9967

== ENCOUNTER → 2020-11-25 08:32 | Outpatient (BNVA) | payer MEDICARE, MEDICAID, OTHER, SELFPAY | PROVIDERS: PCP Internal Medicine; Visit Provider Surgery | DX: N28.89 Other specified disorders of kidney and ureter (principal) | CPT/HCPCS: 99212 ==

== ENCOUNTER 2020-12-01 09:28 | Outpatient (REF) | payer MEDICARE, MEDICAID, OTHER, SELFPAY ==
--- NOTE | ~2020-12-01 | MR_ITS ---
EXAMINATION: MR ABDOMEN WITHOUT AND WITH CONTRAST CLINICAL INFORMATION: Other specified disorder of kidney and ureter COMPARISON: CT 11/23/2020 TECHNIQUE: MR abdomen was performed without and with use of 10 mL intravenous Gadavist gadolinium contrast. Postcontrast images are performed in multiphase dynamic sequences. Imaging was performed in 3 planes. FINDINGS: LUNG BASES: The visualized lung bases are unremarkable. LIVER, GALLBLADDER, AND BILIARY TREE: Mild loss of signal on opposed phase gradient echo T1-weighted images consistent with mild diffuse hepatic steatosis. A few scattered well-circumscribed T2 bright nonenhancing cysts are seen in the left and right lobes of the liver; no imaging follow-up recommended. No concerning focal liver lesion seen. The gallbladder is unremarkable with no evidence of gallbladder wall thickening, or obvious pericholecystic inflammatory changes. PANCREAS: Unremarkable. SPLEEN: Normal. ADRENAL GLANDS: Normal. KIDNEYS AND URETERS: Normal right kidney. Exophytic from the anterior cortex of the upper pole of the left kidney is a 2.0 x 1.7 cm transaxial by 1.7 cm craniocaudal heterogeneous T2 bright avidly enhancing solid mass highly suspicious for malignancy. No extension to involve the left renal hilum. The left renal vein enhances normally. GASTROINTESTINAL TRACT: No bowel obstruction. No ascites or fluid collection. ABDOMINAL WALL: Midline laparotomy changes. LYMPH NODES: No retroperitoneal lymphadenopathy. VASCULAR: Normal caliber abdominal aorta. The IVC is patent. OSSEOUS STRUCTURES: Marrow signal normal. MR/MR abdomen wo/w con IMPRESSION: 2.0 cm enhancing solid mass of the anterior cortex of the upper pole the left kidney, consistent with renal cell carcinoma until proven otherwise. No findings to suggest metastatic disease.
== END 2020-12-01 09:29 | disposition home or self-care (01) ==
LOC: HO.MRI 09:28
PROVIDERS: Visit Provider Surgery
DX: N28.89 Other specified disorders of kidney and ureter (principal)
CPT/HCPCS: 74183; A9585

== ENCOUNTER → 2020-12-05 10:54 | Outpatient (BNVA) | payer MEDICARE, OTHER, MEDICAID, SELFPAY | PROVIDERS: PCP Internal Medicine; Referring Provider Internal Medicine; Visit Provider Surgery | DX: N28.89 Other specified disorders of kidney and ureter (principal) | CPT/HCPCS: 99212 ==

== ENCOUNTER → 2020-12-12 09:47 | Outpatient (BNVA) | payer MEDICARE, OTHER, SELFPAY | PROVIDERS: PCP Internal Medicine; Visit Provider Urology | DX: C64.2 Malignant neoplasm of left kidney, except renal pelvis (principal) | CPT/HCPCS: 99202 ==

== ENCOUNTER 2021-07-30 08:27 | Outpatient (REF) | payer MEDICARE, MEDICAID, SELFPAY ==
[2021-07-30 09:21] LABS: Total Volume 24 Hour Urine 2200 mL
[2021-07-30 09:49] LABS: Creatinine, 24Hr Urine 1.5 G/Day (1.0-2.0); Creatinine, mg/dL 67.51
[2021-08-03 12:41] LABS: Metanephrine, Free 24U 31 mcg/24 h (90-315); Normetanephrine, Free 24U 356 mcg/24 h (122-676); Total Metanephrine, Free 24U 387 mcg/24 h (224-832); Total Volume 24U 2200 mL
[2021-08-04 09:51] LABS: Renin 2.66 ng/mL/h (0.25-5.82)
[2021-08-05 00:12] LABS: CATF, 24 Ur Volume 2200 mL; Catecholamines,Tot. (E+NE) 24U 39 mcg/24 h (26-121); Dopamine, 24 Ur 299 mcg/24 h (52-480); Norepinephrine, 24 Ur 39 mcg/24 h (15-100)
[2021-08-06 12:51] LABS: Cortisol, Free <0.03 mcg/dL
[2021-08-07 17:37] LABS: Aldosterone/Renin Ratio 5.4 Ratio (0.9-28.9); Plasma Renin Activity 2.39 ng/mL/h (0.25-5.82)
== END 2021-07-30 08:28 | disposition home or self-care (01) ==
LOC: HO.LAB 08:27
PROVIDERS: Absent Provider Urology; PCP Internal Medicine; Visit Provider Urology
DX: E27.9 Disorder of adrenal gland, unspecified (principal)
CPT/HCPCS: 36415; 82088; 82384; 82530; 82570; 83835; 84244

== ENCOUNTER → 2021-08-07 08:38 | Outpatient (BNVA) | payer MEDICARE, MEDICAID, SELFPAY | PROVIDERS: PCP Internal Medicine; Visit Provider Urology | DX: Z13.89 Encounter for screening for other disorder (principal) | CPT/HCPCS: Q3014 ==

== ENCOUNTER 2021-09-02 13:35 | Outpatient (REF) | payer MEDICARE, MEDICAID, SELFPAY ==
--- NOTE | ~2021-09-02 | MM_ITS ---
EXAMINATION: MM SCREENING DIGITAL BREAST TOMOSYNTHESIS, BILATERAL CLINICAL INFORMATION: Screening. Asymptomatic. The lifetime risk of breast cancer based on the Tyrer-Cuzick Model is 9%. COMPARISON: Mammography: 03/14/2019, 02/10/2018, 01/24/2017 TECHNIQUE: Digital breast tomosynthesis is performed in both the craniocaudal and mediolateral oblique views along with computer-aided detection (CAD). Synthesized 2D images are generated from the tomosynthesis. FINDINGS: There are scattered areas of fibroglandular density (ACR BI-RADS breast composition Category b). Parenchymal pattern is similar to prior studies. There is no developing density or interval mass or architectural abnormality. There is a biopsy clip marker adjacent to a small nodule posterior central left breast. Both the biopsied nodule and a adjacent satellite nodule are decreased in size since 2017. There are no abnormal calcifications. The axilla and skin contours are unremarkable. MM/MM tomosynthesis screening BI IMPRESSION: No mammographic evidence of malignancy. ASSESSMENT: BI-RADS 2: Benign RECOMMENDATION: Routine annual mammography screening. This patient's information was entered into a reminder system with a target due date for their next mammogram.
== END 2021-09-02 13:36 | disposition home or self-care (01) ==
LOC: HO.MAMMO 13:35
PROVIDERS: Visit Provider Physician Assistant
DX: Z12.31 Encounter for screening mammogram for malignant neoplasm of breast (principal)
CPT/HCPCS: 77063; 77067

== ENCOUNTER 2021-10-03 12:31 | Emergency (ER) | payer MEDICARE, MEDICAID, SELFPAY ==
--- NOTE | 2021-10-03 | ECG_ITS ---
Test Reason : chest pain Blood Pressure : / mmHG Vent. Rate : 121 BPM Atrial Rate : 121 BPM P-R Int : 132 ms QRS Dur : 086 ms QT Int : 326 ms P-R-T Axes : 061 020 012 degrees QTc Int : 462 ms Sinus tachycardia Nonspecific ST abnormality Abnormal ECG When compared with ECG of 25-JUN-2015 12:09, Nonspecific T wave abnormality no longer evident in Lateral leads Referred By: Generic ED Physician Electronically Signed By:LAST MARTINEZ
--- NOTE | ~2021-10-03 | XR_ITS ---
EXAMINATION: XR CHEST CLINICAL INFORMATION: Chest pain. COMPARISON: Chest radiographs dated 06/14/2011. TECHNIQUE: Frontal view of the chest was obtained. FINDINGS: No significant abnormality is noted involving the heart, lungs, mediastinum, bony thorax or soft tissues. XR/XR chest 1V IMPRESSION: No acute cardiopulmonary process.
--- NOTE | ~2021-10-03 | CT_ITS ---
EXAMINATION: CT ANGIOGRAM CHEST WITH AND WITHOUT CONTRAST (CT PULMONARY ANGIOGRAM FOR PE) CLINICAL INFORMATION: Chest pain. Elevated D-dimer. COMPARISON: Chest radiograph done earlier the same day. TECHNIQUE: Prior to contrast administration, noncontrast localization images were obtained. Subsequently, multidetector volumetric imaging was performed from the thoracic inlet to below the diaphragms following the administration of 71 mL Omnipaque 350 intravenous contrast. No contrast reaction reported. Sagittal, coronal, and MIP oblique sagittal reformatted images were obtained on the CT workstation, uploaded to PACS, and reviewed. This CT examination was performed using dose optimization techniques as appropriate, variously including the following: *Automated exposure control. *Adjustment of mA and/or kV according to patient size (this includes techniques or standardized protocols for targeted exams where dose is matched to indication/reason for exam; i.e. extremities or head). *Use of iterative reconstruction technique. Total exam dose-length product 305 mGy-cm. FINDINGS: QUALITY OF STUDY/CONTRAST BOLUS: Satisfactory. PULMONARY ARTERIES: No central or segmental pulmonary emboli. THORACIC AORTA: No aneurysm or dissection. LUNG: No focal consolidation, nodules or masses. PLEURA: No pleural effusion or pneumothorax. MEDIASTINUM: Normal heart size. No pericardial effusion. No hilar or mediastinal lymphadenopathy. No evidence of septal bowing or right heart strain. CHEST WALL/AXILLA: No axillary or internal mammary lymphadenopathy. OSSEOUS STRUCTURES: No acute or suspicious osseous abnormality. UPPER ABDOMEN: Unremarkable. No reflux of contrast into the hepatic veins to suggest elevated right heart pressures. CT/CT angio chest PE protocol IMPRESSION: No CT angiographic evidence of acute pulmonary embolism. VTE: Negative.
[2021-10-03 12:39] VITALS: BP 125/83; PULSE 123; RESP 22; TEMP 36.8; O2SAT 99; BMI 37.6
--- NOTE | 2021-10-03 13:36 | ED.CHESTPAIN ---
HPI - Chest Pain General Chief Complaint: Chest Pain Stated Complaint: Chest Pain Time Seen by Provider: 10/03/21 13:36 Source: patient Mode of arrival: ambulatory Limitations: no limitations History of Present Illness MD complaint: chest pain (body aches, anxiety ) Pertinent past history: other (reports adrenal lesion - usually hydrates with gatorade and takes oral fluids) Onset (ago): week(s) (1) Timing of current episode: constant Prior episodes: Yes Onset: during rest and during exertion Pain location: substernal and left chest Pain radiation: none Severity: moderate Quality: other (aching) Relieving factors: nothing Exacerbating factors: movement Context: other (hx of similar episodes states she has had low K in past) Associated symptoms: nausea, palpitations and other (body aches) Treatment prior to arrival: none Related Data Home Medications Medication Instructions Recorded Confirmed albuterol sulfate 90 mcg/actuation INHALATION 10/30/20 11/20/20 aerosol inhaler alprazolam 2 mg tablet 2 mg PO TID PRN 10/30/20 11/20/20 bupropion HCl 150 mg 24 hr tablet, 150 mg PO BEDTIME 10/30/20 11/20/20 extended release cetirizine 10 mg tablet 10 mg PO DAILY 10/30/20 11/20/20 hydrochlorothiazide 25 mg tablet 50 mg PO DAILY 10/30/20 11/20/20 ibuprofen 800 mg tablet 800 mg PO Q8H PRN 10/30/20 11/20/20 metformin 1,000 mg tablet 500 mg PO QAM 10/30/20 11/20/20 nifedipine 90 mg tablet,extended 90 mg PO DAILY 10/30/20 11/20/20 release omeprazole 20 mg capsule,delayed 20 mg PO BID 12/12/20 release dexamethasone 1 mg tablet 1 mg PO ONCE 08/07/21 docusate sodium 100 mg capsule 100 mg PO BID 08/07/21 furosemide 20 mg tablet 20 mg PO DAILY PRN 08/07/21 polyethylene glycol 3350 17 gram 17 g PO DAILY PRN 08/07/21 oral powder packet sennosides 8.6 mg tablet (Kristina-anusha) 17.2 mg PO BEDTIME 08/07/21 simethicone 80 mg chewable tablet 80 mg PO QID PRN 08/07/21 Previous Rx's Medication Instructions Recorded omeprazole magnesium 20 mg 20 mg PO BID #60 tab 10/27/20 tablet,delayed release (Prilosec OTC) Allergies Allergy/AdvReac Type Severity Reaction Status Date / Time almond Allergy Unknown HIVES Verified 08/07/21 08:39 citalopram [CITALOPRAM] Allergy Unknown HIVES Verified 08/07/21 08:39 lamotrigine [From LAMICTAL] Allergy Unknown RASH Verified 08/07/21 08:39 oxcarbazepine Allergy Unknown RASH Verified 08/07/21 08:39 [From TRILEPTAL] paroxetine [PAROXETINE] Allergy Unknown HIVE Verified 08/07/21 08:39 sertraline [From ZOLOFT] Allergy Unknown RASH Verified 08/07/21 08:39 HYBROMIDE Allergy Unknown HIVES Uncoded 08/07/21 08:39 PYSCH MED Allergy Unknown Unknown Uncoded 08/07/21 08:39 Review of Systems Review of Systems: Constitutional : No Weight loss, No Fever, No Chills, No Fatigue, pos Malaise ENT/Mouth : No sore throat, No Rhinorrhea Eyes: No Eye Pain, No Swelling, No Redness Cardiovascular : pos Chest Pain, No SOB, No Dyspnea on Exertion, No Orthopnea, No Edema, pos Palpitations Respiratory : No Cough, No Sputum, No Wheezing Gastrointestinal : No Nausea, No Vomiting, No Diarrhea, No Constipation, No abdominal Pain, No Hematochezia, No Melena Genitourinary : No Dysuria, No Urinary Frequency, No Hematuria, Musculoskeletal : No joint pain, pos Myalgias, No Joint Swelling Skin : No Skin Lesions, No rash Neuro : No Weakness, No Numbness, No Dizziness, No Headache Psych : pos Anxiety/Panic, No Depression Heme/Lymph: No Bruising, No Bleeding,No Lymphadenopathy Endocrine : No Polyuria, No Polydipsia All other systems reviewed and are negative [facility] Past Medical History Attestation statement: The following information was validated with the patient. Medical History (Updated 10/03/21 @ 16:03 by Maame Duarte DO) Asthma Benign positional vertigo Bipolar disorder Cancer of left kidney Hernia HTN (hypertension) Left kidney mass Lesion of adrenal gland PCOS (polycystic ovarian syndrome) PTSD (post-traumatic stress disorder) Surgical History History of abdominoplasty History of delivery History of cholecystectomy History of medial meniscus repair of left knee History of repair of ACL History of umbilical hernia Family History Family History Brother Prostate cancer Father Malignant neoplasm of skin of back Maternal Uncle Prostate cancer Family/Other Prostate cancer Family/Other Breast cancer Social History Social History Alcohol intake: never Patient Tobacco Use Status: Never used Tobacco Use of substances other than those prescribed or required for medical reasons: Yes Substance Use Type: Marijuana Advance Directives: Yes Advance Directives Information Provided: No Advance Directives on File: No Patient : No Physical Exam Vital Signs: Vital Signs: Last Vital Signs Temp 98.3 F 10/03/21 15:51 Pulse 97 10/03/21 15:51 Resp 12 10/03/21 15:51 BP 117/77 10/03/21 15:51 Pulse Ox 99 10/03/21 15:51 BMI result Body Mass Index 37.6 Appearance: Alert. Oriented X3. anxious mild acute distress. Eyes: Pupils equal, round and reactive to light. ENT: Pharynx normal. Neck: Normal inspection. Neck supple. CVS: tachycardicheart rate and rhythm. Pulses normal. Respiratory: No respiratory distress. Breath sounds normal. Abdomen: Soft and nontender. Skin: Skin warm and dry. Normal skin color. Normal skin turgor. Extremities: No lower extremity edema. No calf ttp Neuro: Oriented X 3. No motor deficit. No sensory deficit. Course Course Course Narrative: mild bump in CPK, mild bump in BUN and calcium - 2L of IVF ordered. ddimer mildly elevated CTA ordered after IVF given negative workup anticipate DC home will refer to PCP Tuesday for repeat CPK levels I am going to give one dose of IV steroids to see if this improves her symptoms will hold off prednisone dosing given history possible inflammatory issue MDM - Chest Pain MDM Narrative Medical decision making narrative: 55 yo female with hx of adrenal lesions s/p removal of adrenal gland on L side and partial L nephrectomy, HTN on HCTZ, she is not on any supplemental steroids at this time. When she feels unwell she tries things such as drinking heavy fluids like gatorade. At this time she notes cramps diffusely, chest pain but again she has pain everwhere and has been present all week this is atypical in nature - labs, lytes, EKG, CXR, ddimer, troponin ordered. Will hydrate and given IV ativan for restlessness/anxiety Lab Data Result diagrams: 10/03/21 14:06 10/03/21 14:06 Labs: Lab Results 10/03/21 10/03/21 10/03/21 Range/Units 14:06 14:06 14:06 WBC 9.7 (4.8-10.8) X10*3/uL RBC 5.10 (4.20-5.50) X10*6/uL Hgb 13.8 (12.0-16.0) g/dl Hct 41.7 (37.0-47.0) % MCV 81.8 (80.0-98.0) fL MCH 27.1 (27.0-33.0) pg MCHC 33.1 (31.0-35.0) g/dl RDW 14.9 (11.0-16.0) % Plt Count 482 H (160-400) X10*3/uL MPV 10.0 (9.4-12.3) fL Immature Gran % (Auto) 0.3 (0.0-0.4) % Neut % (Auto) 65.8 (45-73) % Lymph % (Auto) 27.2 (20-40) % [place] % (Auto) 4.7 (2-11) % Eos % (Auto) 1.7 (0-4) % Baso % (Auto) 0.3 (0-2) % Lymph # (Auto) 2.6 (1.2-4.9) X10*3/uL [place] # (Auto) 0.5 (0.1-1.2) X10*3/uL Eos # (Auto) 0.2 (0.0-0.4) X10*3/uL Baso # (Auto) 0.0 (0.0-0.2) X10*3/uL Abs Immat Gran (auto) 0.03 (0.00-0.03) X10*3/uL Absolute Neuts (auto) 6.4 (2.0-8.3) x10*3/uL Absolute Nucleated RBC 0.000 (0.0-0.012) X10*3/uL Nucleated RBC % (auto) 0.0 (0.0-0.2) /100WBC D-Dimer High Sensitivty NG/ML Sodium 138 (135-145) mmol/L Potassium 3.8 (3.3-5.1) mmol/L Chloride 100 (96-108) mmol/L Carbon Dioxide 24 (22-29) mmol/L Anion Gap 18 (12-20) BUN 22 H (9-16) mg/dL Creatinine 1.10 (0.5-1.4) mg/dL Estim Creat Clear Calc 62.2 Estimated GFR 52 Random Glucose 102 (60-115) mg/dL Calcium 10.4 H D (8.4-10.2) mg/dL Magnesium (1.6-2.6) mg/dL Total Creatine Kinase (26-140) U/L Troponin I High Sens < 3.5 (<3.5-17.0) ng/L TSH (0.32-4.0) uIU/mL Urine Color Urine Appearance Urine pH (5.0-8.0) Ur Specific Maxwell (1.005-1.025) Urine Protein (NEG-TRACE) MG/DL Urine Glucose (UA) (NEG) MG/DL Urine Ketones (NEG) MG/DL Urine Blood (NEG) Urine Nitrite (NEG) Ur Leukocyte Esterase (NEG) COVID-19 (AMBER) (Negative) COVID-19 Clin Com Influenza Type A (VANDANA) (Negative) Influenza Type B (VANDANA) (Negative) Influenza A & B Note 10/03/21 10/03/21 10/03/21 Range/Units 14:06 14:06 14:06 WBC (4.8-10.8) X10*3/uL RBC (4.20-5.50) X10*6/uL Hgb (12.0-16.0) g/dl Hct (37.0-47.0) % MCV (80.0-98.0) fL MCH (27.0-33.0) pg MCHC (31.0-35.0) g/dl RDW (11.0-16.0) % Plt Count (160-400) X10*3/uL MPV (9.4-12.3) fL Immature Gran % (Auto) (0.0-0.4) % Neut % (Auto) (45-73) % Lymph % (Auto) (20-40) % [place] % (Auto) (2-11) % Eos % (Auto) (0-4) % Baso % (Auto) (0-2) % Lymph # (Auto) (1.2-4.9) X10*3/uL [place] # (Auto) (0.1-1.2) X10*3/uL Eos # (Auto) (0.0-0.4) X10*3/uL Baso # (Auto) (0.0-0.2) X10*3/uL Abs Immat Gran (auto) (0.00-0.03) X10*3/uL Absolute Neuts (auto) (2.0-8.3) x10*3/uL Absolute Nucleated RBC (0.0-0.012) X10*3/uL Nucleated RBC % (auto) (0.0-0.2) /100WBC D-Dimer High Sensitivty 266 NG/ML Sodium (135-145) mmol/L Potassium (3.3-5.1) mmol/L Chloride (96-108) mmol/L Carbon Dioxide (22-29) mmol/L Anion Gap (12-20) BUN (9-16) mg/dL Creatinine (0.5-1.4) mg/dL Estim Creat Clear Calc Estimated GFR Random Glucose (60-115) mg/dL Calcium Cancelled (8.4-10.2) mg/dL Magnesium 1.7 (1.6-2.6) mg/dL Total Creatine Kinase 677 H (26-140) U/L Troponin I High Sens (<3.5-17.0) ng/L TSH 0.51 (0.32-4.0) uIU/mL Urine Color Urine Appearance Urine pH (5.0-8.0) Ur Specific Maxwell (1.005-1.025) Urine Protein (NEG-TRACE) MG/DL Urine Glucose (UA) (NEG) MG/DL Urine Ketones (NEG) MG/DL Urine Blood (NEG) Urine Nitrite (NEG) Ur Leukocyte Esterase (NEG) COVID-19 (AMBER) (Negative) COVID-19 Clin Com Influenza Type A (VANDANA) (Negative) Influenza Type B (VANDANA) (Negative) Influenza A & B Note 10/03/21 10/03/21 10/03/21 Range/Units 14:08 14:09 14:10 WBC (4.8-10.8) X10*3/uL RBC (4.20-5.50) X10*6/uL Hgb (12.0-16.0) g/dl Hct (37.0-47.0) % MCV (80.0-98.0) fL MCH (27.0-33.0) pg MCHC (31.0-35.0) g/dl RDW (11.0-16.0) % Plt Count (160-400) X10*3/uL MPV (9.4-12.3) fL Immature Gran % (Auto) (0.0-0.4) % Neut % (Auto) (45-73) % Lymph % (Auto) (20-40) % [place] % (Auto) (2-11) % Eos % (Auto) (0-4) % Baso % (Auto) (0-2) % Lymph # (Auto) (1.2-4.9) X10*3/uL [place] # (Auto) (0.1-1.2) X10*3/uL Eos # (Auto) (0.0-0.4) X10*3/uL Baso # (Auto) (0.0-0.2) X10*3/uL Abs Immat Gran (auto) (0.00-0.03) X10*3/uL Absolute Neuts (auto) (2.0-8.3) x10*3/uL Absolute Nucleated RBC (0.0-0.012) X10*3/uL Nucleated RBC % (auto) (0.0-0.2) /100WBC D-Dimer High Sensitivty NG/ML Sodium (135-145) mmol/L Potassium (3.3-5.1) mmol/L Chloride (96-108) mmol/L Carbon Dioxide (22-29) mmol/L Anion Gap (12-20) BUN (9-16) mg/dL Creatinine (0.5-1.4) mg/dL Estim Creat Clear Calc Estimated GFR Random Glucose (60-115) mg/dL Calcium (8.4-10.2) mg/dL Magnesium (1.6-2.6) mg/dL Total Creatine Kinase (26-140) U/L Troponin I High Sens (<3.5-17.0) ng/L TSH (0.32-4.0) uIU/mL Urine Color YELLOW Urine Appearance CLEAR Urine pH 6.0 (5.0-8.0) Ur Specific Maxwell 1.020 (1.005-1.025) Urine Protein NEG (NEG-TRACE) MG/DL Urine Glucose (UA) NEG (NEG) MG/DL Urine Ketones NEG (NEG) MG/DL Urine Blood NEG (NEG) Urine Nitrite NEG (NEG) Ur Leukocyte Esterase NEG (NEG) COVID-19 (AMBER) Negative (Negative) COVID-19 Clin Com See Note Influenza Type A (VANDANA) Negative (Negative) Influenza Type B (VANDANA) Negative (Negative) Influenza A & B Note See Note ECG Data ECG #1: Attestation: I personally reviewed and interpreted this ECG as follows: ECG interpretation date: 10/03/21 ECG interpretation time: 13:36 Interpretation: Rate: 121 Rhythm: sinus tachycardia [place]: normal Normal P waves. Normal JUAN ANTONIO. Normal QRS complex. ST T wave : non specific no JESSEE qTC: normal prior studies: no acute ischemia The study has been interpreted contemporaneously by me. . Discharge Plan Discharge Clinical Impression: Elevated CPK, Myalgia, Acute dehydration Patient Disposition: Home, Self-Care Instructions: Dehydration (ED), Rhabdomyolysis (ED), Musculoskeletal Pain (ED) Additional Instructions: mild bump in CPK 677 CTA normal no blood clot, heart tests normal slight dehydration - given 2L of IVF you need to see your doctor on Tuesday and repeat blood tests - no exercise, no OTC supplements, no herbal supplements Prescriptions: No Action omeprazole magnesium [Prilosec OTC] 20 mg tablet,delayed release (DR/EC) 20 mg PO BID Qty: 60 0RF albuterol sulfate 90 mcg/actuation HFA aerosol inhaler inhalation 0RF alprazolam 2 mg tablet 2 mg PO TID PRN (Reason: Anxiety) 0RF bupropion HCl 150 mg tablet extended release 24 hr 150 mg PO BEDTIME 0RF hydrochlorothiazide 25 mg tablet 50 mg PO DAILY 0RF metformin 1,000 mg tablet 500 mg PO QAM 0RF nifedipine 90 mg tablet extended release 90 mg PO DAILY 0RF ibuprofen 800 mg tablet 800 mg PO Q8H PRN (Reason: pain) 0RF cetirizine 10 mg tablet 10 mg PO DAILY 0RF omeprazole 20 mg capsule,delayed release(DR/EC) 20 mg PO BID 0RF simethicone 80 mg tablet,chewable 80 mg PO QID PRN (Reason: pain) 0RF docusate sodium 100 mg capsule 100 mg PO BID 0RF polyethylene glycol 3350 17 gram powder in packet 17 g PO DAILY PRN (Reason: constipation) 0RF sennosides [Kristina-anusha] 8.6 mg tablet 17.2 mg PO BEDTIME 0RF dexamethasone 1 mg tablet 1 mg PO ONCE 0RF furosemide 20 mg tablet 20 mg PO DAILY PRN (Reason: swelling) 0RF Referrals: Hiral Johnson MD [Primary Care Provider] - 10/05/21 Stand Alone Forms: Work/School Release
[2021-10-03 13:43] VITALS: BP 148/100; PULSE 112; RESP 17; TEMP 37; O2SAT 96
[2021-10-03 14:13] LABS: MANUAL DIFF FLAG NO
[2021-10-03 14:16] LABS: Appearance Urine CLEAR; Color Urine YELLOW; Glucose Urine UA NEG (NEG); Leukocyte Esterase Urine NEG (NEG); Nitrite Urine NEG (NEG); Urine Blood NEG (NEG); Urine Ketones NEG (NEG); Urine Protein NEG (NEG-TRACE)
[2021-10-03 14:16] LABS: Basophils Percent Auto 0.3 % (0-2); Eosinophils Absolute Auto 0.2 X10*3/uL (0.0-0.4); Eosinophils Percent Auto 1.7 % (0-4); Hematocrit 41.7 % (37.0-47.0); Hemoglobin 13.8 g/dl (12.0-16.0); Imm Gran Abs Auto 0.03 X10*3/uL (0.00-0.03); Imm Gran Pct Auto 0.3 % (0.0-0.4); Lymphocytes Absolute Auto 2.6 X10*3/uL (1.2-4.9); Lymphocytes Percent Auto 27.2 % (20-40); Mean Corpuscular HGB Conc 33.1 g/dl (31.0-35.0); Mean Corpuscular Hemoglobin 27.1 pg (27.0-33.0); Mean Corpuscular Volume 81.8 fL (80.0-98.0); Monocytes Absolute Auto 0.5 X10*3/uL (0.1-1.2); Monocytes Percent Auto 4.7 % (2-11); Neutrophils Absolute Auto 6.4 x10*3/uL (2.0-8.3); Neutrophils Percent Auto 65.8 % (45-73); Platelet Count 482 X10*3/uL (160-400); Red Cell Distribution Width 14.9 % (11.0-16.0); White Blood Count 9.7 X10*3/uL (4.8-10.8)
[2021-10-03] MEDS: LORazepam 2 MG/ML VIAL 1 MG IVPUSH (14:20)
[2021-10-03] MEDS: 0.9 % Sodium Chloride 1,000 ML 999 ML IV ×2 (14:21→16:04)
[2021-10-03 14:31] LABS: Anion Gap 18 (12-20); Blood Urea Nitrogen 22 mg/dL (9-16); Calcium 10.4 mg/dL (8.4-10.2); Carbon Dioxide 24 mmol/L (22-29); Chloride 100 mmol/L (96-108); Creatinine Clr Calc Pharmacy 62.2; Estimated Glomerular Filt Rate 52; Glucose Random 102 mg/dL (60-115); Magnesium 1.7 mg/dL (1.6-2.6); Potassium 3.8 mmol/L (3.3-5.1); Sodium 138 mmol/L (135-145)
[2021-10-03 14:37] LABS: Troponin-I High Sensitivity < 3.5 ng/L (<3.5-17.0)
[2021-10-03 14:46] LABS: D Dimer High Sensitivity 266 NG/ML
[2021-10-03 14:51] VITALS: BP 137/83; PULSE 93; RESP 16; O2SAT 99
[2021-10-03 15:04] LABS: TSH reflex Free T4 0.51 uIU/mL (0.32-4.0)
[2021-10-03] MEDS: iohexoL 350 MG/ML 100 ML INFUS..BTL IV (15:15)
[2021-10-03 15:32] LABS: COVID-19 Test Negative (Negative); IDNOW Serial# 08D9AD1C
[2021-10-03 15:33] LABS: Influenza A Negative (Negative); Influenza B2 Negative (Negative)
[2021-10-03 15:51] VITALS: BP 117/77; PULSE 97; RESP 12; TEMP 36.8; O2SAT 99
[2021-10-03] MEDS: methylPREDNISolone Sod Succ 125 MG/2 ML VIAL IVPUSH (16:33)
== END 2021-10-03 16:57 | disposition home or self-care (01) ==
PROVIDERS: Emergency Provider Emergency Medicine; PCP Internal Medicine
DX: E86.0 Dehydration (principal); M79.10 Myalgia, unspecified site; R74.8 Abnormal levels of other serum enzymes; I10 Essential (primary) hypertension; J45.909 Unspecified asthma, uncomplicated; Z79.899 Other long term (current) drug therapy; Z20.822 Contact with and (suspected) exposure to COVID-19
CPT/HCPCS: 36415; 71045; 71275; 80048; 81003; 82550; 83735; 84443; 84484; 85025; 85379; 87502; 87635; 93005; 96361; 96374; 96375; 99284; 99285; J2060; J2930; Q9967

== ENCOUNTER → 2021-10-13 12:57 | Outpatient (BNVA) | payer MEDICARE, MEDICAID, SELFPAY | PROVIDERS: PCP Internal Medicine; Visit Provider Internal Medicine Endocrinology, Diabetes & Metabolism | DX: E27.40 Unspecified adrenocortical insufficiency (principal) | CPT/HCPCS: 99202 ==

== ENCOUNTER 2021-10-15 09:36 | Outpatient (REF) | payer MEDICARE, MEDICAID, SELFPAY ==
[2021-10-19 12:56] LABS: Metanephrine, Free <25 pg/mL (<=57); Normetanephrines, Free 158 pg/mL (<=148); Total Metanephrine, Free 158 pg/mL (<=205)
== END 2021-10-15 09:37 | disposition home or self-care (01) ==
LOC: HO.LAB 09:36
PROVIDERS: PCP Internal Medicine; Visit Provider Internal Medicine Endocrinology, Diabetes & Metabolism
DX: D35.00 Benign neoplasm of unspecified adrenal gland (principal)
CPT/HCPCS: 36415; 83835

== ENCOUNTER 2021-10-20 07:56 | Outpatient (REF) | payer MEDICARE, MEDICAID, SELFPAY ==
[2021-10-21 19:35] LABS: Adrenocorticotropic Hormone 17 pg/mL (6-50)
[2021-10-21 23:50] LABS: Cortisol 30 Minute 21.2 mcg/dL; Cortisol 60 Minute 26.8 mcg/dL; Cortisol Baseline 7.7 mcg/dL
== END 2021-10-20 07:57 | disposition home or self-care (01) ==
LOC: HO.MDS 07:56
PROVIDERS: PCP Internal Medicine; Visit Provider Internal Medicine Endocrinology, Diabetes & Metabolism
DX: E27.40 Unspecified adrenocortical insufficiency (principal)
CPT/HCPCS: 36415; 82024; 82533; 96374; J0834

== ENCOUNTER → 2022-06-10 13:57 | Outpatient (BNVA) | payer OTHER, MEDICAID, SELFPAY | PROVIDERS: PCP Internal Medicine; Visit Provider Urology | DX: Z85.528 Personal history of other malignant neoplasm of kidney (principal) | CPT/HCPCS: Q3014 ==

== ENCOUNTER 2022-09-27 08:24 | Outpatient (REF) | payer OTHER, MEDICAID, MEDICARE, SELFPAY ==
--- NOTE | ~2022-09-27 | MM_ITS ---
EXAMINATION: MM SCREENING DIGITAL BREAST TOMOSYNTHESIS, BILATERAL CLINICAL INFORMATION: Screening. Asymptomatic. The lifetime risk of breast cancer based on the Tyrer-Cuzick Model is 7%. COMPARISON: Mammography: 09/02/2021, 03/14/2019, 02/10/2018; left breast ultrasound 02/17/2018 TECHNIQUE: Digital breast tomosynthesis is performed in both the craniocaudal and mediolateral oblique views along with computer-aided detection (CAD). Synthesized 2D images are generated from the tomosynthesis. Additional right MLO view is provided. FINDINGS: There are scattered areas of fibroglandular density (ACR BI-RADS breast composition Category b). Parenchymal pattern is similar to prior studies and there is no developing density or interval architectural abnormality. Scattered fibronodular densities are stable. There is a biopsy clip marker again present posterior central left breast. There are no significant masses, abnormal calcifications, or other abnormalities. The axilla and skin contours are unremarkable. MM/MM tomosynthesis screening BI IMPRESSION: No mammographic evidence of malignancy. ASSESSMENT: BI-RADS 2: Benign RECOMMENDATION: Routine annual mammography screening. This patient's information was entered into a reminder system with a target due date for their next mammogram.
== END 2022-09-27 08:25 | disposition home or self-care (01) ==
LOC: HO.MAMMO 08:24
PROVIDERS: PCP Internal Medicine; Visit Provider Internal Medicine
DX: Z12.31 Encounter for screening mammogram for malignant neoplasm of breast (principal)
CPT/HCPCS: 77063; 77067

== ENCOUNTER 2022-12-06 09:23 | Outpatient (REF) | payer OTHER, MEDICAID, MEDICARE, SELFPAY | END 2022-12-06 09:24 | disposition home or self-care (01) | LOC: HO.US 09:23 | PROVIDERS: PCP Internal Medicine; Visit Provider Urology | DX: C64.2 Malignant neoplasm of left kidney, except renal pelvis (principal) | CPT/HCPCS: 76775 ==

== ENCOUNTER 2022-12-15 15:16 | Outpatient (AMB) | payer OTHER, MEDICAID, SELFPAY ==
--- NOTE | 2022-12-15 15:36 | A.OFFVIS_ITS ---
Intake Intake Visit Reasons: 6M US(set) Intake Note: * Patient presents today for a 6mo follow-up with Ultrasound Results * Meds- None * Allergies to Antibiotic- None * Blood Thinner- Furosemide Operational Trainer Required: No Accompanied by: Significant Other Allergies almond Allergy (Unknown, Verified 12/15/22 15:41) HIVES citalopram [CITALOPRAM] Allergy (Unknown, Verified 12/15/22 15:41) HIVES lamotrigine [From LAMICTAL] Allergy (Unknown, Verified 12/15/22 15:41) RASH oxcarbazepine [From TRILEPTAL] Allergy (Unknown, Verified 12/15/22 15:41) RASH paroxetine [PAROXETINE] Allergy (Unknown, Verified 12/15/22 15:41) HIVE sertraline [From ZOLOFT] Allergy (Unknown, Verified 12/15/22 15:41) RASH HYBROMIDE Allergy (Unknown, Uncoded 12/15/22 15:41) HIVES PYSCH MED Allergy (Unknown, Uncoded 12/15/22 15:41) Unknown Medication List - Last Reconciled 12/15/22 by Sam Keys MD albuterol sulfate 90 mcg/actuation inhalation alprazolam 2 mg PO TID PRN bupropion HCl 150 mg PO BEDTIME cetirizine 10 mg PO DAILY docusate sodium 100 mg PO BID PRN furosemide 20 mg PO DAILY PRN hydrochlorothiazide 50 mg PO DAILY hydrocortisone 10 mg PO BID metformin ER 1,000 mg PO QAM nifedipine ER 90 mg PO DAILY omeprazole 20 mg PO BID omeprazole magnesium (Prilosec OTC) 20 mg PO BID polyethylene glycol 3350 17 grams PO DAILY PRN sennosides (Kristina-anusha) 17.2 mg PO BEDTIME simethicone 80 mg PO QID PRN HPI HPI Comments History of Present Illness Details Cortney is a pleasant female. She is a patient of . She seen for the following urologic condition - left upper pole apex renal cancer - adrenal adenoma 18 month follow-up Imaging stable 6 month follow-up with labs and MRI Renal cancer T1 low-grade left partial nephrectomy left 05/26 Revealed during evaluation for gallbladder symptoms 05/26 underwent left laparoscopic partial nephrectomy with Dr. Sinha at [facility] Post intervention course has had food intolerance is most likely related to removal of gallbladder Imaging - 06/27 MRI no evidence of disease - 03/27 MRI no evidence of disease - 12/26 renal ultrasound normal [facility] Medical History (Updated 06/10/22 @ 14:43 by Sam Keys MD) Adrenal adenoma Asthma Benign positional vertigo Bipolar disorder Cancer of left kidney Hernia HTN (hypertension) Left kidney mass Lesion of adrenal gland PCOS (polycystic ovarian syndrome) PTSD (post-traumatic stress disorder) Surgical History H/O partial adrenalectomy History of abdominoplasty History of delivery History of cholecystectomy History of medial meniscus repair of left knee History of repair of ACL History of umbilical hernia Family History Brother Prostate cancer Father Malignant neoplasm of skin of back Maternal Uncle Prostate cancer Family/Other Prostate cancer Family/Other Breast cancer Social History Alcohol intake: never Patient Tobacco Use Status: Never used Tobacco Substance Use Type: Marijuana Review of Systems Const Denies chills and Denies fever(s) Card Reports no additional complaints and Denies syncope Resp Denies cough GI Denies abdominal pain and Denies heartburn Reports as per HPI and Denies change in libido Neuro Denies syncope Psych Denies change in libido Endo Denies change in libido Physical Exam Const General: cooperative, healthy appearing, comfortable and no acute distress Orientation/consciousness: patient oriented x3 HEENT Face and sinus: Yes normal facial exam Mouth: moist mucous membranes Neck Neck: Yes normal visual inspection, Yes full ROM and Yes trachea midline Chest Chest palpation & inspection: normal inspection of the chest Resp Effort & Inspection: normal respiratory effort, able to speak in complete sentences and no respiratory distress GI Inspection: Yes normal to inspection Back/Spine/Pelvis Cervical Spine: normal cervical lordosis Thoracic/Lumbar Spine: thoracic and lumbar spine normal to inspection Skin General skin exam: no rashes or lesions noted Neuro General: patient oriented x3, gait normal, tone normal and moves all extremities Extrem General: Yes normal to inspection and Yes capillary refill normal Results AMB Urinalysis, Automated UA Leukoctes 0 Ronny/uL Last Edit by Daryn Savage [facility] on 12/15/22 15:51 UA Nitrite Negative Last Edit by Daryn Savage [facility] on 12/15/22 15:51 UA Urobilinogen 0.2 mg/dL Last Edit by Daryn Savage [facility] on 12/15/22 15:5 1 UA Protein 15 mg/dL Last Edit by Daryn Savage [facility] on 12/15/22 15:51 UA pH 6.0 Last Edit by Daryn Savage [facility] on 12/15/22 15:51 UA Blood 0 Tex/uL Last Edit by Daryn Savage [facility] on 12/15/22 15:51 UA Specific [place] 1.025 Last Edit by Daryn Savage [facility] on 12/15/22 15: 51 UA Ketone Negative Last Edit by Daryn Savage [facility] on 12/15/22 15:51 UA Bilirubin 0 mg/dL Last Edit by Daryn Savage [facility] on 12/15/22 15:51 UA Glucose 0 mg/dL Last Edit by Daryn Savage [facility] on 12/15/22 15:51 Results Reviewed Results Reviewed: Laboratory Last Values Urine pH (Auto) 6.0 12/15/22 15:48 Specific [place] (Auto) 1.025 12/15/22 15:48 Urine Protein (Auto) 15 mg/dL 12/15/22 15:48 Glucose (UA)(Auto) 0 mg/dL 12/15/22 15:48 Urine Ketones (Auto) Negative 12/15/22 15:48 Urine Blood (Auto) 0 Tex/uL 12/15/22 15:48 Urine Nitrite (Auto) Negative 12/15/22 15:48 Urine Bilirubin (Auto) 0 mg/dL 12/15/22 15:48 Urine Urobilinogen (Auto) 0.2 mg/dL 12/15/22 15:48 Leukocyte Esterase (Auto) 0 Ronny/uL 12/15/22 15:48 Assessment & Plan Assessment & Plan (1) Cancer of left kidney: Comment: 05/[address] Bharath Michael Code(s): C64.2 - Malignant neoplasm of left kidney, except renal pelvis Plan 6 month follow-up imaging Orders: Orders Blood Urea Nitrogen 6 Months C64.2 - Malignant neoplasm of left kidney, except renal pelvis Creatinine 6 Months C64.2 - Malignant neoplasm of left kidney, except renal pelvis MR kidney wo/w con 6 Months C64.2 - Malignant neoplasm of left kidney, except renal pelvis AMB Urinalysis Automated Today Z13.9 - Encounter for screening, unspecified Patient Instructions: Imaging studies, laboratory and physical exam results were discussed and reviewed in detail. No major barriers to patient understanding were identified. An opportunity to ask questions regarding the treatment plan was provided. All questions were answered. The patient expressed understanding and agreement with the above treatment plan. The patient is aware they should contact our office by phone for worsening of their current condition or the appearance of new urologic symptoms. Compliance is encouraged with any medications and followup testing that is ordered. It is a privilege to participate in the urologic care of your patient. If you have any questions or concerns regarding treatment for the above conditions, or other urologic issues, please do not hesitate to contact me. The office telephone contact is [phone]. This note is constructed using voice recognition software. While every effort has been made to ensure accuracy filling machine tender errors may have been included. Yours sincerely, Dr Sam Keys MD, [facility] - Urology Providers of Expert, Compassionate Care for the Genitourinary System Coding Level of Care Code Est Pt Level 3 (07903) Diagnoses Cancer of left kidney C64.2
== END 2022-12-15 16:11 | disposition home or self-care (01) ==
PROVIDERS: Visit Provider Urology
DX: C64.2 Malignant neoplasm of left kidney, except renal pelvis (principal)
CPT/HCPCS: 99213

== ENCOUNTER → 2022-12-15 15:16 | Outpatient (BNVA) | payer OTHER, MEDICAID, SELFPAY | PROVIDERS: Visit Provider Urology | DX: C64.2 Malignant neoplasm of left kidney, except renal pelvis (principal) | CPT/HCPCS: 99212 ==

== ENCOUNTER 2023-08-19 13:34 | Emergency (ER) | payer OTHER, MEDICAID, SELFPAY ==
--- NOTE | ~2023-08-19 | XR_ITS ---
EXAMINATION: XR CHEST CLINICAL INFORMATION: Pain. COMPARISON: CTA chest 10/03/2021. Chest radiograph 10/03/2021. TECHNIQUE: Frontal view of the chest was obtained. FINDINGS: Normal appearance of the cardiomediastinal silhouette. No focal airspace opacities, pleural effusion or pneumothorax. No acute osseous findings. Visualized upper abdomen is within normal limits. XR/XR chest 1V IMPRESSION: No acute cardiopulmonary findings.
--- NOTE | 2023-08-19 13:36 | ECG_ITS ---
Test Reason : CHEST PAIN Blood Pressure : / mmHG Vent. Rate : 093 BPM Atrial Rate : 093 BPM P-R Int : 146 ms QRS Dur : 098 ms QT Int : 386 ms P-R-T Axes : 018 013 014 degrees QTc Int : 479 ms Normal sinus rhythm Normal ECG When compared with ECG of 03-OCT-2021 12:31, No significant change was found Referred By: Isis Medina Electronically Signed By:MIKKI MULLINS MD
[2023-08-19 13:50] VITALS: BP 132/79; PULSE 100; RESP 18; TEMP 37; O2SAT 98; BMI 35.8
--- NOTE | 2023-08-19 14:01 | ED.GENADULT ---
HPI - General Adult General Chief complaint: General Medical Stated complaint: adrenal crisis, sent by Dr. Keys Time Seen by Provider: 08/19/23 21:25 Source: patient and old records reviewed Mode of arrival: ambulatory Limitations: no limitations History of Present Illness HPI narrative: 57 yo female with PMH of asthma, PCOS, HTN, L renal cell carcinoma s/p surgery in 2021 with L adrenal gland removal now with possible spot on R kidney that they are watching she did not have to complete any chemotherapy. She presents with c/o not feeling great this week with low BPs at home 80s to 90s systolic, dizziness when walking, nausea, sometimes she feels confused. She has upper L sided chest pain not associated with exertion. She is not taking any steroids at baseline. She is also under a lot of stress at home the past month. MD complaint: multiple complaints Onset (ago): week(s) (1) Location: chest Radiation: non-radiation Severity: moderate Quality: aching Pain Consistency: constant Relieving factors: none Exacerbating factors: none Associated symptoms: chest pain, loss of appetite, malaise and weakness Treatments prior to arrival: none Related Data Home Medications Medication Instructions Recorded Confirmed albuterol sulfate 90 mcg/actuation inhalation 10/30/20 06/10/22 aerosol inhaler alprazolam 2 mg tablet 2 mg PO TID PRN Anxiety 10/30/20 06/10/22 bupropion HCl 150 mg 24 hr tablet, 150 mg PO BEDTIME 10/30/20 06/10/22 extended release cetirizine 10 mg tablet 10 mg PO DAILY 10/30/20 06/10/22 nifedipine 90 mg tablet,extended 90 mg PO DAILY 10/30/20 06/10/22 release omeprazole 20 mg capsule,delayed 20 mg PO BID 12/12/20 06/10/22 release furosemide 20 mg tablet 20 mg PO DAILY PRN swelling 08/07/21 06/10/22 polyethylene glycol 3350 17 gram 17 g PO DAILY PRN constipation 08/07/21 06/10/22 oral powder packet sennosides 8.6 mg tablet (Kristina-anusha) 17.2 mg PO BEDTIME 08/07/21 06/10/22 simethicone 80 mg chewable tablet 80 mg PO QID PRN pain 08/07/21 06/10/22 docusate sodium 100 mg capsule 100 mg PO BID PRN 10/13/21 06/10/22 hydrochlorothiazide 25 mg tablet 50 mg PO DAILY 12/15/22 metformin 500 mg tablet,extended 1,000 mg PO QAM 12/15/22 release 24 hr Previous Rx's Medication Instructions Recorded omeprazole magnesium 20 mg 20 mg PO BID #60 tabs 10/27/20 tablet,delayed release (Prilosec OTC) hydrocortisone 10 mg tablet 10 mg PO BID #60 tabs 11/27/21 Allergies Allergy/AdvReac Type Severity Reaction Status Date / Time almond Allergy Unknown HIVES Verified 08/19/23 13:53 citalopram [CITALOPRAM] Allergy Unknown HIVES Verified 08/19/23 13:53 lamotrigine [From LAMICTAL] Allergy Unknown RASH Verified 08/19/23 13:53 oxcarbazepine Allergy Unknown RASH Verified 08/19/23 13:53 [From TRILEPTAL] paroxetine [PAROXETINE] Allergy Unknown HIVE Verified 08/19/23 13:53 sertraline [From ZOLOFT] Allergy Unknown RASH Verified 08/19/23 13:53 HYBROMIDE Allergy Unknown HIVES Uncoded 12/15/22 15:41 PYSCH MED Allergy Unknown Unknown Uncoded 12/15/22 15:41 Review of Systems Review of Systems: Constitutional : No Weight loss, No Fever, No Chills ENT/Mouth : No sore throat, No Rhinorrhea Eyes: No Eye Pain, No Swelling Cardiovascular : pos Chest Pain, no SOB, no Dyspnea on Exertion, No Orthopnea, No Edema, No Palpitations Respiratory : No Cough, No Sputum Gastrointestinal : pos Nausea, No Vomiting, No Diarrhea, No abdominal Pain, No Hematochezia, No Melena Genitourinary : No Dysuria, No Urinary Frequency Musculoskeletal : No joint pain, No Myalgias, No Joint Swelling Skin : No Skin Lesions, No rash Neuro : pos Weakness, No Numbness, pos Dizziness, No Headache Psych : No Anxiety/Panic, No Depression All other systems reviewed and are negative [facility] Past Medical History Attestation statement: The following information was validated with the patient. Source: old records reviewed Medical History Adrenal adenoma Lesion of adrenal gland Cancer of left kidney Left kidney mass Benign positional vertigo PCOS (polycystic ovarian syndrome) HTN (hypertension) Asthma Bipolar disorder PTSD (post-traumatic stress disorder) Hernia Surgical History H/O partial adrenalectomy History of cholecystectomy History of medial meniscus repair of left knee History of umbilical hernia History of abdominoplasty History of repair of ACL History of delivery Family History Family History Brother Prostate cancer Father Malignant neoplasm of skin of back Maternal Uncle Prostate cancer Family/Other Prostate cancer Family/Other Breast cancer Social History Social History Alcohol intake: never Patient Tobacco Use Status: Never used Tobacco Substance Use Type: Marijuana Advance Directives: No Advance Directives Information Provided: No Physical Exam ED Vital Signs: Vital Signs - 24 hr 08/19/23 13:50 Temperature 98.6 F Pulse Rate 100 Respiratory Rate 18 Blood Pressure 132/79 Pulse Oximetry 98 Oxygen Delivery Method Room Air BMI result Body Mass Index 35.8 Appearance: Alert. Oriented X3. No acute distress. Eyes: Pupils equal, round and reactive to light. ENT: Pharynx normal. Neck: Normal inspection. Neck supple. CVS: Normal heart rate and rhythm. Pulses normal. Chest: ttp along L upper chest wall does reproduce some of the pain Respiratory: No respiratory distress. Breath sounds normal. Abdomen: Soft and non-tender. Skin: Skin warm and dry. Normal skin color. Normal skin turgor. Extremities: No lower extremity edema. No calf ttp Neuro: Oriented X 3. No motor deficit. No sensory deficit. Course Course Course Narrative: This is an RME: Additional HPI, ROS, PE not included below will be deferred to primary provider. Patient is a 57-year-old female past medical history of renal cell carcinoma w/ left laparoscopic partial nephrectomy presenting to emergency department for evaluation of intermittent dizziness, nausea, sweats, confusion that she associates with low blood pressure readings, intermittent chest pain. Was advised to come to the ED by Dr. Keys for evaluation of possible adrenal crisis. She is prescribed hydrocortisone Medications Administered Discontinued Medications Generic Name Dose Route Start Last Admin Trade Name Freq PRN Reason Stop Dose Admin Lactated Ringer's 1,000 mls @ 999 mls/hr 08/19/23 21:45 08/19/23 23:01 Lr IV 08/19/23 22:45 999 mls/hr .Q1H1M JOO Administration Medical Decision Making Medical Decision Making [facility] Narrative: 57 yo female with PMH of HTN, asthma, PCOS, L renal cell carcinoma s/p removal with L adrenal gland removal and no chemo needed now under observation at this time she presents with 1 week of symptoms of intermittent dizziness and low BPs, chest pain on L upper side that is not related to exertion no fevers reported. She has no hx of adrenal crisis is not on mediactions and her labs were normal post surgery and cleared by endocrinology. Her labs here are normal Cr, normal K and BP is normal - adrenal crisis unlikely. Her EKG and troponin are flat. Will obtain ddimer and CXR. IVF ordered. Differential Diagnosis Differential Diagnoses: The differential diagnosis associated with the presentation includes atypical chest pain, stress, mass, VTE Admission/Observation Consideration of admission/observation: Escalation of care including admission/observation considered normal BP here, neg trop, normal lytes K and Cr, ddimer negative, EKG and CXR wnl at this time with one week of symptoms and reassuring symptoms she is stable for DC Lab Data [facility] Lab Attestation statement: I reviewed the patient's lab results. trop negative, K and Cr normal NA normal ddimer negative 08/19/23 14:11 08/19/23 14:11 Labs: Lab Results 08/19/23 08/19/23 08/19/23 Range/Units 14:11 22:45 22:57 WBC 9.1 (4.8-10.8) X10*3/uL RBC 4.93 (4.20-5.50) X10*6/uL Hgb 14.0 (12.0-16.0) g/dl Hct 41.9 (37.0-47.0) % MCV 85.0 (80.0-98.0) fL MCH 28.4 (27.0-33.0) pg MCHC 33.4 (31.0-35.0) g/dl RDW 15.1 (11.0-16.0) % Plt Count 426 H (160-400) X10*3/uL MPV 9.9 (9.4-12.3) fL Immature Gran % (Auto) 0.9 H (0.0-0.4) % Neut % (Auto) 60.9 (45-73) % Lymph % (Auto) 27.2 (20-40) % [place] % (Auto) 5.8 (2-11) % Eos % (Auto) 4.6 H (0-4) % Baso % (Auto) 0.6 (0-2) % Lymph # (Auto) 2.5 (1.2-4.9) X10*3/uL [place] # (Auto) 0.5 (0.1-1.2) X10*3/uL Eos # (Auto) 0.4 (0.0-0.4) X10*3/uL Baso # (Auto) 0.1 (0.0-0.2) X10*3/uL Abs Immat Gran (auto) 0.08 H (0.00-0.03) X10*3/uL Absolute Neuts (auto) 5.5 (2.0-8.3) x10*3/uL Absolute Nucleated RBC 0.000 (0.0-0.012) X10*3/uL Nucleated RBC % (auto) 0.0 (0.0-0.2) /100WBC D-Dimer High Sensitivty 220 NG/ML Sodium 139 (135-145) mmol/L Potassium 3.7 (3.3-5.1) mmol/L Chloride 107 (96-108) mmol/L Carbon Dioxide 22 (22-29) mmol/L Anion Gap 14 (12-20) BUN 20 H (9-16) mg/dL Creatinine 0.95 (0.5-1.4) mg/dL Estim Creat Clear Calc 68.4 Estimated GFR > 60 Random Glucose 108 (60-115) mg/dL Calcium 9.9 (8.4-10.2) mg/dL Total Bilirubin 0.2 (0.0-1.0) mg/dL AST 17 (5-31) U/L ALT 27 (0-31) U/L Alkaline Phosphatase 146 H (39-117) U/L Troponin I High Sens < 2.7 (<3.5-17.0) ng/L Total Protein 8.8 H (6.5-8.0) g/dL Albumin 4.4 (3.5-5.0) g/dL Urine Color Yellow Urine Appearance Clear Urine pH 6.0 (5.0-9.0) Ur Specific [place] 1.010 (1.005-1.025) Urine Protein Negative (Neg-Trace) mg/dL Urine Glucose (UA) Negative (Negative) mg/dL Urine Ketones Negative (Negative) mg/dL Urine Blood Negative (Negative) Urine Nitrite Negative (Negative) Ur Leukocyte Esterase Negative (Negative) Independent Interpretation I performed an independent interpretation of an: EKG and Plain X-Ray (normal ) Interpretation: Rate: 93 Rhythm: NSR [place]: normal Normal P waves. Normal JUAN ANTONIO. Normal QRS complex. ST T wave : inverted t wave III , aVF no JESSEE qTC: 479 prior studies: no acute change The study has been interpreted contemporaneously by me. . Radiology Impression Discussion of test interpretation with radiology: I have reviewed the radiologist's reading. External Record Review External record reviewed: Office record Discharge Plan Discharge Clinical Impression: Atypical chest pain, Dizziness Patient Disposition: Home, Self-Care Instructions: Chest Pain (ED), Dizziness (ED) Additional Instructions: continue to monitor your blood pressure. your labs including potassium, heart tests, kidney function, electrolytes were normal. your EKG, chest xray and test for blood clot in lungs was normal. your urine was also normal. please follow up with your doctor on tuesday. return for any worsening symptoms or concerns. Prescriptions: No Action hydrocortisone 10 mg tablet 10 mg PO BID Qty: 60 5RF omeprazole magnesium [Prilosec OTC] 20 mg tablet,delayed release (DR/EC) 20 mg PO BID Qty: 60 0RF albuterol sulfate 90 mcg/actuation HFA aerosol inhaler inhalation alprazolam 2 mg tablet 2 mg PO TID PRN (Reason: Anxiety) bupropion HCl 150 mg tablet extended release 24 hr 150 mg PO BEDTIME nifedipine 90 mg tablet extended release 90 mg PO DAILY cetirizine 10 mg tablet 10 mg PO DAILY omeprazole 20 mg capsule,delayed release(DR/EC) 20 mg PO BID metformin 500 mg tablet extended release 24 hr 1,000 mg PO QAM hydrochlorothiazide 25 mg tablet 50 mg PO DAILY simethicone 80 mg tablet,chewable 80 mg PO QID PRN (Reason: pain) polyethylene glycol 3350 17 gram powder in packet 17 g PO DAILY PRN (Reason: constipation) sennosides [Kristina-anusha] 8.6 mg tablet 17.2 mg PO BEDTIME furosemide 20 mg tablet 20 mg PO DAILY PRN (Reason: swelling) docusate sodium 100 mg capsule 100 mg PO BID PRN
[2023-08-19 14:16] LABS: MANUAL DIFF FLAG NO
[2023-08-19 14:19] LABS: Basophils Absolute Auto 0.1 X10*3/uL (0.0-0.2); Basophils Percent Auto 0.6 % (0-2); Eosinophils Absolute Auto 0.4 X10*3/uL (0.0-0.4); Eosinophils Percent Auto 4.6 % (0-4); Hematocrit 41.9 % (37.0-47.0); Imm Gran Abs Auto 0.08 X10*3/uL (0.00-0.03); Imm Gran Pct Auto 0.9 % (0.0-0.4); Lymphocytes Absolute Auto 2.5 X10*3/uL (1.2-4.9); Lymphocytes Percent Auto 27.2 % (20-40); Mean Corpuscular HGB Conc 33.4 g/dl (31.0-35.0); Mean Corpuscular Hemoglobin 28.4 pg (27.0-33.0); Mean Platelet Volume 9.9 fL (9.4-12.3); Monocytes Absolute Auto 0.5 X10*3/uL (0.1-1.2); Monocytes Percent Auto 5.8 % (2-11); Neutrophils Absolute Auto 5.5 x10*3/uL (2.0-8.3); Neutrophils Percent Auto 60.9 % (45-73); Platelet Count 426 X10*3/uL (160-400); Red Blood Count 4.93 X10*6/uL (4.20-5.50); Red Cell Distribution Width 15.1 % (11.0-16.0); White Blood Count 9.1 X10*3/uL (4.8-10.8)
[2023-08-19 14:36] LABS: Alanine Aminotransferase 27 U/L (0-31); Albumin Level 4.4 g/dL (3.5-5.0); Alkaline Phosphatase 146 U/L (39-117); Anion Gap 14 (12-20); Aspartate Amino Transferase 17 U/L (5-31); Bilirubin Total 0.2 mg/dL (0.0-1.0); Blood Urea Nitrogen 20 mg/dL (9-16); Calcium 9.9 mg/dL (8.4-10.2); Carbon Dioxide 22 mmol/L (22-29); Chloride 107 mmol/L (96-108); Creatinine Clr Calc Pharmacy 68.4; Estimated Glomerular Filt Rate > 60; Glucose Random 108 mg/dL (60-115); Potassium 3.7 mmol/L (3.3-5.1); Sodium 139 mmol/L (135-145); Total Protein 8.8 g/dL (6.5-8.0)
[2023-08-19 14:44] LABS: Troponin-I High Sensitivity < 2.7 ng/L (<3.5-17.0)
[2023-08-19 22:58] LABS: D Dimer High Sensitivity 220 NG/ML
[2023-08-19] MEDS: Lactated Ringers 1,000 ML 999 ML IV (23:01)
[2023-08-19 23:04] LABS: Appearance Urine Clear; Color Urine Yellow; Glucose Urine UA Negative (Negative); Leukocyte Esterase Urine Negative (Negative); Nitrite Urine Negative (Negative); Urine Blood Negative (Negative); Urine Ketones Negative (Negative); Urine Protein Negative (Neg-Trace)
--- NOTE | 2023-08-19 23:51 | PC.NURSE ---
per await for fluids to complete prior to d.c
[2023-08-20 00:42] VITALS: BP 126/75; PULSE 84; RESP 17; TEMP 37.2; O2SAT 98
== END 2023-08-20 00:43 | disposition home or self-care (01) ==
PROVIDERS: Nurse Practitioner Family; Emergency Provider Emergency Medicine
DX: R07.89 Other chest pain (principal); R42 Dizziness and giddiness; E89.6 Postprocedural adrenocortical (-medullary) hypofunction; C64.2 Malignant neoplasm of left kidney, except renal pelvis; I10 Essential (primary) hypertension; J45.909 Unspecified asthma, uncomplicated
CPT/HCPCS: 36415; 71045; 80053; 81003; 84484; 85025; 85379; 93005; 99283; 99285; J7120

== ENCOUNTER → 2023-08-19 13:36 | Outpatient (BNV) | payer OTHER, MEDICAID, SELFPAY | PROVIDERS: Emergency Provider Emergency Medicine; Visit Provider Internal Medicine Cardiovascular Disease | DX: R07.9 Chest pain, unspecified (principal) | CPT/HCPCS: 93010 ==

== ENCOUNTER 2023-10-26 08:47 | Outpatient (REF) | payer MEDICARE, MEDICAID, SELFPAY ==
--- NOTE | ~2023-10-26 | MM_ITS ---
EXAMINATION: MM SCREENING DIGITAL BREAST TOMOSYNTHESIS, BILATERAL CLINICAL INFORMATION: Screening. Asymptomatic. COMPARISON: Mammography: This study is compared with prior exams dating back to 2018. TECHNIQUE: Digital breast tomosynthesis is performed in both the craniocaudal and mediolateral oblique views along with computer-aided detection (CAD). Synthesized 2D images are generated from the tomosynthesis. FINDINGS: There are scattered areas of fibroglandular density (ACR BI-RADS breast composition Category b). There are no significant masses, abnormal calcifications, or other abnormalities. There is a tissue marker present in the left breast from prior benign percutaneous biopsy. MM/MM tomosynthesis screening BI IMPRESSION: No mammographic evidence of malignancy. ASSESSMENT: BI-RADS BI-RADS 2 - Benign Findings RECOMMENDATION: Routine annual mammography screening. 1 year F/U This examination should not preclude the clinical evaluation of a suspicious palpable abnormality. This patient's information was entered into a reminder system with a target due date for their next mammogram.
== END 2023-10-26 08:48 | disposition home or self-care (01) ==
LOC: HO.MAMMO 08:47
PROVIDERS: PCP Internal Medicine; Visit Provider Internal Medicine
DX: Z12.31 Encounter for screening mammogram for malignant neoplasm of breast (principal)
CPT/HCPCS: 77063; 77067

== ENCOUNTER → 2023-10-26 09:00 | Outpatient (BNV) | payer MEDICARE, MEDICAID, SELFPAY | PROVIDERS: PCP Internal Medicine; Visit Provider Radiology Diagnostic Radiology | DX: Z12.31 Encounter for screening mammogram for malignant neoplasm of breast (principal) | CPT/HCPCS: 77063; 77067 ==

== ENCOUNTER 2024-05-07 08:54 | Outpatient (REF) | payer MEDICARE, MEDICAID, SELFPAY ==
[2024-05-07] MEDS: gadobutroL 10 ML VIAL IVPUSH (09:34)
== END 2024-05-07 08:55 | disposition home or self-care (01) ==
LOC: HO.MRI 08:54
PROVIDERS: PCP Internal Medicine; Visit Provider Urology
DX: C64.2 Malignant neoplasm of left kidney, except renal pelvis (principal)
CPT/HCPCS: 74018; 74183; A9585

== ENCOUNTER 2024-05-16 10:38 | Outpatient (AMB) | payer OTHER, MEDICAID, SELFPAY ==
--- NOTE | 2024-05-16 10:44 | MHC.OFFVIS ---
Intake Visit Reasons: 1y/MRI/KUB Allergies almond Allergy (Unknown, Verified 08/19/23 13:53) HIVES citalopram [CITALOPRAM] Allergy (Unknown, Verified 08/19/23 13:53) HIVES lamotrigine [From LAMICTAL] Allergy (Unknown, Verified 08/19/23 13:53) RASH oxcarbazepine [From TRILEPTAL] Allergy (Unknown, Verified 08/19/23 13:53) RASH paroxetine [PAROXETINE] Allergy (Unknown, Verified 08/19/23 13:53) HIVE sertraline [From ZOLOFT] Allergy (Unknown, Verified 08/19/23 13:53) RASH HYBROMIDE Allergy (Unknown, Uncoded 12/15/22 15:41) HIVES PYSCH MED Allergy (Unknown, Uncoded 12/15/22 15:41) Unknown PFSH Medical History Adrenal adenoma Lesion of adrenal gland Cancer of left kidney Left kidney mass Benign positional vertigo PCOS (polycystic ovarian syndrome) HTN (hypertension) Asthma Bipolar disorder PTSD (post-traumatic stress disorder) Hernia Surgical History H/O partial adrenalectomy History of cholecystectomy History of medial meniscus repair of left knee History of umbilical hernia History of abdominoplasty History of repair of ACL History of delivery Family History Brother Prostate cancer Father Malignant neoplasm of skin of back Maternal Uncle Prostate cancer Family/Other Prostate cancer Family/Other Breast cancer Social History Alcohol intake: never Patient Tobacco Use Status: Never used Tobacco Substance Use Type: Marijuana Coding
--- NOTE | 2024-05-16 10:53 | MHC.OFFVIS ---
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 Accompanied by: Self / Same As Patient Allergies almond Allergy (Unknown, Verified 05/16/24 10:57) HIVES citalopram [CITALOPRAM] Allergy (Unknown, Verified 05/16/24 10:57) HIVES lamotrigine [From LAMICTAL] Allergy (Unknown, Verified 05/16/24 10:57) RASH oxcarbazepine [From TRILEPTAL] Allergy (Unknown, Verified 05/16/24 10:57) RASH paroxetine [PAROXETINE] Allergy (Unknown, Verified 05/16/24 10:57) HIVE sertraline [From ZOLOFT] Allergy (Unknown, Verified 05/16/24 10:57) RASH HYBROMIDE Allergy (Unknown, Uncoded 05/16/24 10:57) HIVES PYSCH MED Allergy (Unknown, Uncoded 05/16/24 10:57) Unknown HPI Comments Details: Cortney is a pleasant female. She is a patient of . She seen for the following urologic condition - left upper pole apex renal cancer - adrenal adenoma 36 month follow-up Imaging stable Twelve month follow-up renal ultrasound Renal cancer T1 low-grade left partial nephrectomy left 05/26 Revealed during evaluation for gallbladder symptoms 05/26 underwent left laparoscopic partial nephrectomy with Dr. Sinha at [facility] Post intervention course has had food intolerance is most likely related to removal of gallbladder Imaging - 06/27 MRI no evidence of disease - 03/27 MRI no evidence of disease - 12/26 renal ultrasound normal - 05/29 MRI no evidence of disease, KUB normal PFSH Medical History Adrenal adenoma Lesion of adrenal gland Cancer of left kidney Left kidney mass Benign positional vertigo PCOS (polycystic ovarian syndrome) HTN (hypertension) Asthma Bipolar disorder PTSD (post-traumatic stress disorder) Hernia Surgical History H/O partial adrenalectomy History of cholecystectomy History of medial meniscus repair of left knee History of umbilical hernia History of abdominoplasty History of repair of ACL History of delivery Family History Brother Prostate cancer Father Malignant neoplasm of skin of back Maternal Uncle Prostate cancer Family/Other Prostate cancer Family/Other Breast cancer Social History Alcohol intake: never Patient Tobacco Use Status: Never used Tobacco Substance Use Type: Marijuana Review of Systems Const Denies chills and Denies fever(s) Card Reports no additional complaints and Denies syncope Resp Denies cough GI Denies abdominal pain and Denies heartburn Reports as per HPI and Denies change in libido Neuro Denies syncope Psych Denies change in libido Endo Denies change in libido Physical Exam Const General: cooperative, healthy appearing, comfortable and no acute distress Orientation/consciousness: patient oriented x3 HEENT Face and sinus: Yes normal facial exam Mouth: moist mucous membranes Neck Neck: Yes normal visual inspection, Yes full ROM and Yes trachea midline Chest Chest palpation & inspection: normal inspection of the chest Resp Effort & Inspection: normal respiratory effort, able to speak in complete sentences and no respiratory distress GI Inspection: Yes normal to inspection Back/Spine/Pelvis Cervical Spine: normal cervical lordosis Thoracic/Lumbar Spine: thoracic and lumbar spine normal to inspection Skin General skin exam: no rashes or lesions noted Neuro General: patient oriented x3, gait normal, tone normal and moves all extremities Extrem General: Yes normal to inspection and Yes capillary refill normal Results AMB Urinalysis, Automated UA Leukoctes 0 Ronny/uL Last Edit by Tosin Gunn CMA on 05/16/24 11:01 UA Nitrite Negative Last Edit by Tosin Gunn CMA on 05/16/24 11:01 UA Urobilinogen 0.2 mg/dL Last Edit by Tosin Gunn CMA on 05/16/24 11:01 UA Protein 0 mg/dL Last Edit by Tosin Gunn CMA on 05/16/24 11:01 UA pH 6.0 Last Edit by Tosin Gunn CMA on 05/16/24 11:01 UA Blood 0 Tex/uL Last Edit by Tosin Gunn CMA on 05/16/24 11:01 UA Specific [place] 1.020 Last Edit by Tosin Gunn CMA on 05/16/24 11:01 UA Ketone Negative Last Edit by Tosin Gunn CMA on 05/16/24 11:01 UA Bilirubin 0 mg/dL Last Edit by Tosin Gunn CMA on 05/16/24 11:01 UA Glucose 0 mg/dL Last Edit by Tosin Gunn CMA on 05/16/24 11:01 Results Reviewed Results Reviewed: Laboratory Last Values Urine pH (Auto) 6.0 05/16/24 10:54 Specific [place] (Auto) 1.020 05/16/24 10:54 Urine Protein (Auto) 0 mg/dL 05/16/24 10:54 Glucose (UA)(Auto) 0 mg/dL 05/16/24 10:54 Urine Ketones (Auto) Negative 05/16/24 10:54 Urine Blood (Auto) 0 Tex/uL 05/16/24 10:54 Urine Nitrite (Auto) Negative 05/16/24 10:54 Urine Bilirubin (Auto) 0 mg/dL 05/16/24 10:54 Urine Urobilinogen (Auto) 0.2 mg/dL 05/16/24 10:54 Leukocyte Esterase (Auto) 0 Ronny/uL 05/16/24 10:54 Assessment & Plan Assessment & Plan (1) Cancer of left kidney: Comment: 05/[address] Sinha [facility] Code(s): C64.2 - Malignant neoplasm of left kidney, except renal pelvis Category: Medical Plan Twelve month follow-up imaging Orders: Orders AMB Urinalysis Automated Today Z13.9 - Encounter for screening, unspecified US renal BI 12 Months C64.2 - Malignant neoplasm of left kidney, except renal pelvis XR chest 1V 1 Year C64.2 - Malignant neoplasm of left kidney, except renal pelvis, C64.9 - Malignant neoplasm of unspecified kidney, except renal pelvis Patient Instructions: Imaging studies, laboratory and physical exam results were discussed and reviewed in detail. No major barriers to patient understanding were identified. An opportunity to ask questions regarding the treatment plan was provided. All questions were answered. The patient expressed understanding and agreement with the above treatment plan. The patient is aware they should contact our office by phone for worsening of their current condition or the appearance of new urologic symptoms. Compliance is encouraged with any medications and followup testing that is ordered. It is a privilege to participate in the urologic care of your patient. If you have any questions or concerns regarding treatment for the above conditions, or other urologic issues, please do not hesitate to contact me. The office telephone contact is [phone]. This note is constructed using voice recognition software. While every effort has been made to ensure accuracy operations mgr errors may have been included. Yours sincerely, Dr Sam Keys MD, [facility] - Urology Providers of Expert, Compassionate Care for the Genitourinary System Coding Level of Care Code Est Pt Level 3 (23745) Diagnoses Cancer of left kidney C64.2
== END 2024-05-16 11:20 | disposition home or self-care (01) ==
PROVIDERS: PCP Internal Medicine; Visit Provider Urology
DX: Z13.9 Encounter for screening, unspecified (principal); C64.2 Malignant neoplasm of left kidney, except renal pelvis
CPT/HCPCS: 99213

== ENCOUNTER → 2024-05-16 10:38 | Outpatient (BNVA) | payer OTHER, MEDICAID, SELFPAY | PROVIDERS: PCP Internal Medicine; Visit Provider Urology | DX: C64.2 Malignant neoplasm of left kidney, except renal pelvis (principal) | CPT/HCPCS: 81003 ==

== ENCOUNTER 2024-08-20 14:12 | Emergency (ER) | payer OTHER, MEDICAID, SELFPAY ==
--- NOTE | ~2024-08-20 | XR_ITS ---
EXAMINATION: XR CHEST 2 VIEWS HISTORY: chest pain COMPARISON: Comparison is made with the prior examination dated 08/19/2023. FINDINGS: PA and lateral views of the chest are submitted. The lungs are expanded and clear. There is no pleural effusion, pneumothorax, or pulmonary vascular congestion. The heart is normal in size. There is degenerative disc disease of the spine. There are surgical clips in the right upper quadrant. XR/XR chest 2V IMPRESSION: No acute cardiopulmonary abnormality. Electronically signed by: Daryl Phillips MD 08/20/2024 02:39 PM EDT
[2024-08-20 14:14] VITALS: BP 142/79; PULSE 102; RESP 20; TEMP 37; O2SAT 95; BMI 32.0
--- NOTE | 2024-08-20 14:14 | ED.GENADULT ---
HPI - General Adult General Chief complaint: Chest Pain Stated complaint: heart attack symptoms Time Seen by Provider: 08/20/24 22:08 Source: patient, RN notes reviewed and old records reviewed Mode of arrival: ambulatory Limitations: no limitations History of Present Illness ED Provider: Richard HADLEY narrative: 58-year-old female past medical history significant for your OS, hypertension, asthma, left renal cell carcinoma presents for evaluation of chest pain. Patient reports that she had an episode of chest pain that she described as an anxiety attack than happened 2 days ago. Her symptoms resolved with Xanax and she did not present to the hospital Patient reports that she has actually had chest pain for the last 10 days that was worse today. She reported associated shortness of breath but denies nausea vomiting, diarrhea. He is still complains of a 6/10 chest pain She reports that she has been compliant with all her medications including her antihypertensive medications Denies any fevers, chills. She denies any personal history of cardiac disease Related Data Home Medications ?Medication ?Instructions ?Recorded ?Confirmed albuterol sulfate 90 mcg/actuation inhalation 10/30/20 06/10/22 aerosol inhaler alprazolam 2 mg tablet 2 mg PO TID PRN Anxiety 10/30/20 06/10/22 bupropion HCl 150 mg 24 hr tablet, 150 mg PO BEDTIME 10/30/20 06/10/22 extended release cetirizine 10 mg tablet 10 mg PO DAILY 10/30/20 06/10/22 nifedipine 90 mg tablet,extended 90 mg PO DAILY 10/30/20 06/10/22 release omeprazole 20 mg capsule,delayed 20 mg PO BID 12/12/20 06/10/22 release furosemide 20 mg tablet 20 mg PO DAILY PRN swelling 08/07/21 06/10/22 polyethylene glycol 3350 17 gram 17 g PO DAILY PRN constipation 08/07/21 06/10/22 oral powder packet sennosides 8.6 mg tablet (Kristina-anusha) 17.2 mg PO BEDTIME 08/07/21 06/10/22 simethicone 80 mg chewable tablet 80 mg PO QID PRN pain 08/07/21 06/10/22 docusate sodium 100 mg capsule 100 mg PO BID PRN 10/13/21 06/10/22 hydrochlorothiazide 25 mg tablet 50 mg PO DAILY 12/15/22 metformin 500 mg tablet,extended 1,000 mg PO QAM 12/15/22 release 24 hr Previous Rx's ?Medication ?Instructions ?Recorded omeprazole magnesium 20 mg 20 mg PO BID #60 tabs 10/27/20 tablet,delayed release (Prilosec OTC) hydrocortisone 10 mg tablet 10 mg PO BID #60 tabs 11/27/21 Allergies Allergy/AdvReac Type Severity Reaction Status Date / Time almond Allergy Unknown HIVES Verified 08/20/24 14:18 citalopram [CITALOPRAM] Allergy Unknown HIVES Verified 08/20/24 14:18 lamotrigine [From LAMICTAL] Allergy Unknown RASH Verified 08/20/24 14:18 oxcarbazepine Allergy Unknown RASH Verified 08/20/24 14:18 [From TRILEPTAL] paroxetine [PAROXETINE] Allergy Unknown HIVE Verified 08/20/24 14:18 sertraline [From ZOLOFT] Allergy Unknown RASH Verified 08/20/24 14:18 HYBROMIDE Allergy Unknown HIVES Uncoded 08/20/24 14:18 PYSCH MED Allergy Unknown Unknown Uncoded 08/20/24 14:18 Review of Systems Constitutional: Constitutional: Denies body ache(s), Denies chills, Denies fever(s) and Denies frequent falls Eyes: Eyes: Denies blurry vision ENT: Denies vertigo and Denies dizziness Cardiovascular: Cardiovascular: Reports chest pain, Reports chest pain at rest, Reports chest pain with activity and Denies dyspnea Respiratory: Respiratory: Denies cough and Denies dyspnea Gastrointestinal: Gastrointestinal: Denies abdominal pain, Denies nausea and Denies vomiting Musculoskeletal: Musculoskeletal: Denies back pain Integumentary/Breasts: Skin/Breast: Denies rash Neurologic: Denies vertigo, Denies dizziness and Denies frequent falls [facility] Past Medical History Medical History Adrenal adenoma Lesion of adrenal gland Cancer of left kidney Left kidney mass Benign positional vertigo PCOS (polycystic ovarian syndrome) HTN (hypertension) Asthma Bipolar disorder PTSD (post-traumatic stress disorder) Hernia Surgical History H/O partial adrenalectomy History of cholecystectomy History of medial meniscus repair of left knee History of umbilical hernia History of abdominoplasty History of repair of ACL History of delivery Family History Family History Brother Prostate cancer Father Malignant neoplasm of skin of back Maternal Uncle Prostate cancer Family/Other Prostate cancer Family/Other Breast cancer Social History Social History Alcohol intake: never Patient Tobacco Use Status: Never used Tobacco Smoked in Last 30 Days: No Substance Use Type: Marijuana Substance Use Frequency: Occasionally Advance Directives: No Advance Directives Information Provided: No Physical Exam ED Vital Signs: Vital Signs - 24 hr 08/20/24 14:14 08/20/24 21:36 Temperature 98.6 F 97.7 F Pulse Rate 102 H 91 Respiratory Rate 20 16 Blood Pressure 142/79 H 138/77 Pulse Oximetry 95 95 Oxygen Delivery Method Room Air Room Air BMI result Body Mass Index 32.0 Const General: healthy appearing, comfortable, no acute distress, alert and awake Nutritional Appearance: well nourished Orientation/consciousness: patient oriented x3 HENMT Head: Yes normocephalic and Yes atraumatic Eyes Eyelids: Yes eyelids normal Conjunctivae: conjunctivae normal Sclerae: sclerae normal Corneas: corneas normal Pupils: Equal, round and reactive pupils present EOM: EOMs intact bilaterally Neck Neck: Yes full ROM Resp Effort & Inspection: normal respiratory effort, able to speak in complete sentences, no audible wheezes and not labored Auscultation: clear to auscultation bilaterally Cardio Rate: regular rate Rhythm: regular rhythm GI Inspection: No distended Palpation (GI): Soft to palpation, not firm, nontender, no guarding and not rigid Skin General skin exam: elasticity normal Neuro General: patient oriented x3 Cranial nerves: Yes Equal, round and reactive pupils present and Yes Bilaterally intact EOM present Cognition (Neuro): normal cognition Extrem Other: Moving all extremities well without any obvious deformities Course Course Course Narrative: This is a rapid medical exam performed by Chas Patel NP: Additional HPI, ROS, PE not included below will be deferred to primary provider. Patient is a 58-year-old female with history of adrenal adenoma presenting with complaint of anxiety attack on Tuesday, called 911, symptoms resolved with xanax. Chest pain radiating to epigastric area intermittent since then. Plan: EKG, labs, CXR Medical Decision Making Medical Decision Making [facility] Narrative: 58-year-old female with a past medical history as documented above presents for evaluation of chest pain. She has been seen here in the past for atypical chest pain. Today she had a workup that included labs, repeat troponin, EKG, chest x-ray. All this was reassuring, she rules out for ACS. She is not tachypneic, tachycardic, or hypoxic. Vital signs are all within normal limits. Her pain is most likely related to anxiety, we will discharge the patient to follow up with her outpatient providers. Differential Diagnosis Differential Diagnoses: The differential diagnosis associated with the presentation includes Chest pain Anxiety Chest wall pain ACS less likely Bronchitis Pneumonia Admission/Observation Consideration of admission/observation: Escalation of care including admission/observation considered Lab Data [facility] Lab Attestation statement: I reviewed the patient's lab results. No leukocytosis or anemia. No significant electrolyte abnormalities warranting intervention. The patient's troponin is negative x2 08/20/24 14:28 08/20/24 14:28 Labs: Lab Results 08/20/24 08/20/24 Range/Units 14:28 18:56 WBC 7.3 (4.8-10.8) X10*3/uL RBC 4.85 (4.20-5.50) X10*6/uL Hgb 14.0 (12.0-16.0) g/dl Hct 40.9 (37.0-47.0) % MCV 84.3 (80.0-98.0) fL MCH 28.9 (27.0-33.0) pg MCHC 34.2 (31.0-35.0) g/dl RDW 14.4 (11.0-16.0) % Plt Count 420 H (160-400) X10*3/uL MPV 10.0 (9.4-12.3) fL Immature Gran % (Auto) 0.1 (0.0-0.4) % Neut % (Auto) 59.0 (45-73) % Lymph % (Auto) 32.6 (20-40) % [place] % (Auto) 5.9 (2-11) % Eos % (Auto) 1.9 (0-4) % Baso % (Auto) 0.5 (0-2) % Lymph # (Auto) 2.4 (1.2-4.9) X10*3/uL [place] # (Auto) 0.4 (0.1-1.2) X10*3/uL Eos # (Auto) 0.1 (0.0-0.4) X10*3/uL Baso # (Auto) 0.0 (0.0-0.2) X10*3/uL Abs Immat Gran (auto) 0.01 (0.00-0.03) X10*3/uL Absolute Neuts (auto) 4.3 (2.0-8.3) x10*3/uL Absolute Nucleated RBC 0.000 (0.0-0.012) X10*3/uL Nucleated RBC % (auto) 0.0 (0.0-0.2) /100WBC Sodium 139 (135-145) mmol/L Potassium 3.4 (3.3-5.1) mmol/L Chloride 104 (96-108) mmol/L Carbon Dioxide 26 (22-29) mmol/L Anion Gap 12 (12-20) BUN 16 (9-16) mg/dL Creatinine 1.23 (0.5-1.4) mg/dL Estim Creat Clear Calc 53.0 Estimated GFR 45 Random Glucose 95 (60-115) mg/dL Calcium 9.8 (8.4-10.2) mg/dL Magnesium 1.9 (1.6-2.6) mg/dL Total Bilirubin 0.4 (0.0-1.0) mg/dL AST 35 H (5-31) U/L ALT 37 H (0-31) U/L Alkaline Phosphatase 122 H (39-117) U/L Troponin I High Sens < 2.7 < 2.7 (<3.5-17.0) ng/L Total Protein 9.2 H (6.5-8.0) g/dL Albumin 4.8 (3.5-5.0) g/dL Lipase 13 (8-78) U/L Independent Interpretation I performed an independent interpretation of an: EKG and Plain X-Ray Interpretation: Normal sinus rhythm with a rate of [address] segment changes Radiology Impression Discussion of test interpretation with radiology: I have reviewed the radiologist's reading. Radiologist Impression: FINDINGS: PA and lateral views of the chest are submitted. The lungs are expanded and clear. There is no pleural effusion, pneumothorax, or pulmonary vascular congestion. The heart is normal in size. There is degenerative disc disease of the spine. There are surgical clips in the right upper quadrant. XR/XR chest 2V IMPRESSION: No acute cardiopulmonary abnormality. Electronically signed by: Drayl Phillips MD 08/20/2024 02:39 PM EDT RP Discharge Plan Discharge Clinical Impression: Chest pain Patient Disposition: Home, Self-Care Instructions: Chest Pain (ED) Additional Instructions: Your workup in the ER today was reassuring. This includes your blood work, repeat blood work, EKG and your chest x-ray. Your chest pain may be related to anxiety. Follow-up with your primary doctor, return for new or worsening symptoms Prescriptions: No Action hydrocortisone 10 mg tablet 10 mg PO BID Qty: 60 5RF omeprazole magnesium [Prilosec OTC] 20 mg tablet,delayed release (DR/EC) 20 mg PO BID Qty: 60 0RF albuterol sulfate 90 mcg/actuation HFA aerosol inhaler inhalation alprazolam 2 mg tablet 2 mg PO TID PRN (Reason: Anxiety) bupropion HCl 150 mg tablet extended release 24 hr 150 mg PO BEDTIME nifedipine 90 mg tablet extended release 90 mg PO DAILY cetirizine 10 mg tablet 10 mg PO DAILY omeprazole 20 mg capsule,delayed release(DR/EC) 20 mg PO BID metformin 500 mg tablet extended release 24 hr 1,000 mg PO QAM hydrochlorothiazide 25 mg tablet 50 mg PO DAILY simethicone 80 mg tablet,chewable 80 mg PO QID PRN (Reason: pain) polyethylene glycol 3350 17 gram powder in packet 17 g PO DAILY PRN (Reason: constipation) sennosides [Kristina-anusha] 8.6 mg tablet 17.2 mg PO BEDTIME furosemide 20 mg tablet 20 mg PO DAILY PRN (Reason: swelling) docusate sodium 100 mg capsule 100 mg PO BID PRN Print Language: Ukrainian
--- NOTE | 2024-08-20 14:15 | ECG_ITS ---
Test Reason : cp Blood Pressure : */* mmHG Vent. Rate : 98 BPM Atrial Rate : 98 BPM P-R Int : 136 ms QRS Dur : 90 ms QT Int : 382 ms P-R-T Axes : 0 10 19 degrees QTcB Int : 487 ms Normal sinus rhythm Normal ECG When compared with ECG of 19-Aug-2023 14:05, No significant change was found Referred By: Jackie Patel Electronically Signed By: Justin Marquez
[2024-08-20 14:36] LABS: MANUAL DIFF FLAG NO
[2024-08-20 14:47] LABS: Basophils Percent Auto 0.5 % (0-2); Eosinophils Absolute Auto 0.1 X10*3/uL (0.0-0.4); Eosinophils Percent Auto 1.9 % (0-4); Hematocrit 40.9 % (37.0-47.0); Imm Gran Abs Auto 0.01 X10*3/uL (0.00-0.03); Imm Gran Pct Auto 0.1 % (0.0-0.4); Lymphocytes Absolute Auto 2.4 X10*3/uL (1.2-4.9); Lymphocytes Percent Auto 32.6 % (20-40); Mean Corpuscular HGB Conc 34.2 g/dl (31.0-35.0); Mean Corpuscular Hemoglobin 28.9 pg (27.0-33.0); Mean Corpuscular Volume 84.3 fL (80.0-98.0); Monocytes Absolute Auto 0.4 X10*3/uL (0.1-1.2); Monocytes Percent Auto 5.9 % (2-11); Neutrophils Absolute Auto 4.3 x10*3/uL (2.0-8.3); Platelet Count 420 X10*3/uL (160-400); Red Blood Count 4.85 X10*6/uL (4.20-5.50); Red Cell Distribution Width 14.4 % (11.0-16.0); White Blood Count 7.3 X10*3/uL (4.8-10.8)
[2024-08-20 15:00] LABS: Alanine Aminotransferase 37 U/L (0-31); Albumin Level 4.8 g/dL (3.5-5.0); Alkaline Phosphatase 122 U/L (39-117); Anion Gap 12 (12-20); Aspartate Amino Transferase 35 U/L (5-31); Bilirubin Total 0.4 mg/dL (0.0-1.0); Blood Urea Nitrogen 16 mg/dL (9-16); Calcium 9.8 mg/dL (8.4-10.2); Carbon Dioxide 26 mmol/L (22-29); Chloride 104 mmol/L (96-108); Estimated Glomerular Filt Rate 45; Glucose Random 95 mg/dL (60-115); Lipase 13 U/L (8-78); Magnesium 1.9 mg/dL (1.6-2.6); Potassium 3.4 mmol/L (3.3-5.1); Sodium 139 mmol/L (135-145); Total Protein 9.2 g/dL (6.5-8.0)
[2024-08-20 15:05] LABS: Troponin-I High Sensitivity < 2.7 ng/L (<3.5-17.0)
[2024-08-20 19:20] LABS: Troponin-I High Sensitivity < 2.7 ng/L (<3.5-17.0)
[2024-08-20 21:36] VITALS: BP 138/77; PULSE 91; RESP 16; TEMP 36.5; O2SAT 95
[2024-08-20 22:53] VITALS: BP 125/80; PULSE 80; RESP 16; TEMP 36.5; O2SAT 95
== END 2024-08-20 22:54 | disposition home or self-care (01) ==
PROVIDERS: Registered Nurse Emergency; Emergency Provider Emergency Medicine; PCP Internal Medicine
DX: R07.89 Other chest pain (principal); F41.1 Generalized anxiety disorder; F43.0 Acute stress reaction; R10.13 Epigastric pain; R06.02 Shortness of breath; Z79.899 Other long term (current) drug therapy
CPT/HCPCS: 36415; 71046; 80053; 83690; 83735; 84484; 85025; 93005; 99283; 99285

== ENCOUNTER → 2024-08-20 14:15 | Outpatient (BNV) | payer OTHER, MEDICAID, SELFPAY | PROVIDERS: Emergency Provider Emergency Medicine; PCP Internal Medicine; Visit Provider Internal Medicine Cardiovascular Disease | DX: R07.9 Chest pain, unspecified (principal) | CPT/HCPCS: 93010 ==

== ENCOUNTER → 2024-08-20 14:16 | Outpatient (BNV) | payer OTHER, MEDICAID, SELFPAY | PROVIDERS: PCP Internal Medicine; Visit Provider Radiology Diagnostic Radiology | DX: R07.9 Chest pain, unspecified (principal) | CPT/HCPCS: 71046 ==

== ENCOUNTER 2024-12-14 11:41 | Emergency (ER) | payer OTHER, MEDICAID, SELFPAY ==
--- OUTSIDE RECORDS SUMMARY | 2024-06-27 05:30 | XMS_ITS ---
Author Organization [facility] Address [address] [place] [address] Care Team Providers Care Nutrition Manager Name Role Phone Hiral Nunes Primary Care Provide r Unavailable Flory Mcintosh Unavailable [phone] Allergies Allergen (clinical drug ingredient) Drug/Non Drug [...] Negative Encounters Encounter Location Date Provider Diagnosis [facility] [address] [place] [address] 06/27/2024 Flory Mcintosh Plan Of Treatment Next Appt Details Provider Name:Flory duong, 02/20/2025 09:30:00 AM, [address] [facility], [place], [address], Progress Notes * Cortney NARAYANDOB:[birth year] (59 yo F)Acc No.[id number]:06/27/2024 Progress Notes Patient: Cortney HOYOS Provider: Remi Mcintosh DPM :1965 A ge:58 Y S ex:Female Date:06/27/2024 Address:[address] [place], [place] [id number] Pcp:Hiral Mcginnis in Subjective: * Chief Complaints: [...] enies. C ardiovascular: Pacemaker d enies. M DRAPERY ESTIMATOR d enies. W PW d enies. C [...] Unspecified essential hypertension, Unspecified heart disease. M loir uncle: stroke, cancer, diagnosed with Other malignant neoplasm of unspecified site. S ibbeata: cancer, diagnosed with Other malignant neoplasm of [...] affeine: yes. Children: yes, 1. 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 Marital status: Single, single. [...] 0 06/27/2024 Generated for Nisreen ramsey/Yulissa/Nakita on: 0 12/14/2024 12:56 PM EDT
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
[2024-12-14 11:55] VITALS: BP 142/83; BP 160/94; PULSE 84; PULSE 90; RESP 16; TEMP 36.6; O2SAT 96; BMI 32.4
[2024-12-14 12:00] VITALS: BP 140/80; PULSE 80; RESP 16; TEMP 36.6; O2SAT 99
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
--- OUTSIDE RECORDS SUMMARY | 2024-12-14 12:57 | XMS_ITS | Encounter Summary ---
Author Organization [facility] Address [address] [place] [address] Care Team Providers Care Metallurgy Laboratory Technician Name Role Phone Hiral Johnson Primary Care Provide r Encounter Details Date Type Department Care Team (Late st Contact Info) Description 09/10/2021 myChart Message Intial Department [address] [place] [id number] Mychart, Generic Provider [address] [place] [id number] Questionnaire Submission Social History Tobacco Use Types Packs/Day Years Used Date Smoking Tobacco: Never Smokeless Tobacco: Never Alcohol Use Standard Drinks/Week Comments Never 0 (1 standard drink = 0.6 oz pur e alcohol) Comments Unknown Sex and Gender Information Value Date Recorded Sex Assigned at Female 05/15/2021 1:25 PM EST Legal Sex Female 9:11 AM EDT Gender Identity Female 05/15/2021 1:25 PM EST Sexual Orientation Straight 05/15/2021 1: 25 PM EST documented as of this encounter Plan of Treatment Not on file documented as of this encounter Visit Diagnoses Not on filedocumented in this encounter Care Teams Metallurgy Laboratory Technician Relationship Specialty Start Date End Date Hiral Johnson PCP - General Internal Medicine 03/02/21 documented as of this encounter
[2024-12-14 14:35] LABS: MANUAL DIFF FLAG NO
[2024-12-14 14:37] VITALS: BP 138/68; PULSE 74; RESP 18; TEMP 36.6; O2SAT 98
[2024-12-14 14:41] LABS: Appearance Urine Clear; Glucose Urine UA Negative (Negative); Hematocrit 41.2 % (37.0-47.0); Hemoglobin 13.8 g/dl (12.0-16.0); Imm Gran Abs Auto 0.01 X10*3/uL (0.00-0.03); Imm Gran Pct Auto 0.1 % (0.0-0.4); Lymphocytes Absolute Auto 2.5 X10*3/uL (1.2-4.9); Mean Corpuscular HGB Conc 33.5 g/dl (31.0-35.0); Mean Corpuscular Hemoglobin 28.4 pg (27.0-33.0); Mean Corpuscular Volume 84.8 fL (80.0-98.0); NRBC Abs Auto 0.000 X10*3/uL (0.0-0.012); NRBC Pct Auto 0.0 /100WBC (0.0-0.2); PH 6.5 (5.0-9.0); Platelet Count 429 X10*3/uL (160-400); Red Blood Count 4.86 X10*6/uL (4.20-5.50); Specific Gravity - Urine 1.015 (1.005-1.025); White Blood Count 8.1 X10*3/uL (4.8-10.8)
[2024-12-14 14:56] LABS: Alanine Aminotransferase 35 U/L (0-31); Albumin Level 5.0 g/dL (3.5-5.0); Alkaline Phosphatase 120 U/L (39-117); Anion Gap 13 (12-20); Aspartate Amino Transferase 27 U/L (5-31); Blood Urea Nitrogen 20 mg/dL (9-16); Calcium 10.1 mg/dL (8.4-10.2); Carbon Dioxide 27 mmol/L (22-29); Chloride 105 mmol/L (96-108); Creatinine Clr Calc Pharmacy 53.7; Estimated Glomerular Filt Rate 50; Potassium 3.8 mmol/L (3.3-5.1); Sodium 141 mmol/L (135-145); Total Protein 8.8 g/dL (6.5-8.0)
[2024-12-14 15:15] VITALS: BP 138/68; PULSE 74; RESP 18; TEMP 36.6; O2SAT 98
== END 2024-12-14 15:30 | disposition home or self-care (01) ==
PROVIDERS: Nurse Practitioner Family; Emergency Provider Emergency Medicine
DX: M54.16 Radiculopathy, lumbar region (principal); S39.012A Strain of muscle, fascia and tendon of lower back, initial encounter; V48.6XXA Car passenger injured in noncollision transport accident in traffic accident, initial encounter; Y93.89 Activity, other specified; Y92.414 Local residential or business street as the place of occurrence of the external cause; Y99.9 Unspecified external cause status
CPT/HCPCS: 36415; 72100; 80053; 81003; 85025; 96372; 99284; J1885

== ENCOUNTER → 2024-12-14 12:29 | Outpatient (BNV) | payer OTHER, MEDICAID, SELFPAY | PROVIDERS: Emergency Provider Emergency Medicine; Visit Provider Radiology Diagnostic Radiology | DX: M54.50 Low back pain, unspecified (principal) | CPT/HCPCS: 72100 ==

== ENCOUNTER 2024-12-25 23:18 | Emergency (ER) | payer OTHER, MEDICAID, SELFPAY ==
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
[2024-12-25 23:45] VITALS: BP 138/98; PULSE 94; RESP 20; TEMP 36.7; O2SAT 94; BMI 32.8
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
[2024-12-26 01:33] VITALS: BP 139/88; PULSE 76; RESP 16; TEMP 36.6; O2SAT 98
[2024-12-26 02:16] LABS: Hematocrit 39.7 % (37.0-47.0); Hemoglobin 13.4 g/dl (12.0-16.0); Imm Gran Abs Auto 0.02 X10*3/uL (0.00-0.03); Imm Gran Pct Auto 0.2 % (0.0-0.4); Lymphocytes Absolute Auto 3.0 X10*3/uL (1.2-4.9); MANUAL DIFF FLAG NO; Mean Corpuscular HGB Conc 33.8 g/dl (31.0-35.0); Mean Corpuscular Hemoglobin 28.0 pg (27.0-33.0); Mean Corpuscular Volume 82.9 fL (80.0-98.0); NRBC Abs Auto 0.000 X10*3/uL (0.0-0.012); NRBC Pct Auto 0.0 /100WBC (0.0-0.2); Platelet Count 405 X10*3/uL (160-400); Red Blood Count 4.79 X10*6/uL (4.20-5.50); White Blood Count 8.7 X10*3/uL (4.8-10.8)
[2024-12-26 02:31] LABS: Alanine Aminotransferase 31 U/L (0-31); Albumin Level 4.7 g/dL (3.5-5.0); Alkaline Phosphatase 117 U/L (39-117); Anion Gap 15 (12-20); Aspartate Amino Transferase 29 U/L (5-31); Blood Urea Nitrogen 22 mg/dL (9-16); Calcium 9.7 mg/dL (8.4-10.2); Carbon Dioxide 25 mmol/L (22-29); Chloride 105 mmol/L (96-108); Creatinine Clr Calc Pharmacy 57.6; Estimated Glomerular Filt Rate 54; Potassium 3.6 mmol/L (3.3-5.1); Sodium 141 mmol/L (135-145); Total Protein 8.3 g/dL (6.5-8.0)
[2024-12-26] MEDS: iohexoL 350 MG/ML 100 ML INFUS..BTL 70 ML IV (02:59)
[2024-12-26 04:08] VITALS: BP 117/62; PULSE 65; RESP 16; TEMP 36.9; O2SAT 98
== END 2024-12-26 04:16 | disposition home or self-care (01) ==
PROVIDERS: Physician Assistant; Emergency Provider Emergency Medicine
DX: R42 Dizziness and giddiness (principal); M54.2 Cervicalgia; F07.81 Postconcussional syndrome; R51.9 Headache, unspecified; R11.0 Nausea; Z79.899 Other long term (current) drug therapy
CPT/HCPCS: 36415; 70496; 70498; 80053; 85025; 96360; 99284; Q9967

== ENCOUNTER → 2024-12-26 02:08 | Outpatient (BNV) | payer OTHER, MEDICAID, SELFPAY | PROVIDERS: Emergency Provider Emergency Medicine; Visit Provider Radiology Diagnostic Radiology | DX: R42 Dizziness and giddiness (principal); R51.9 Headache, unspecified | CPT/HCPCS: 70496; 70498 ==

== ENCOUNTER 2025-02-17 09:17 | Outpatient (REF) | payer OTHER, MEDICAID, SELFPAY ==
--- NOTE | ~2025-02-17 | MR_ITS ---
CLINICAL HISTORY: CONCUSSION W UNKNOWN LOC MR cervical spine without gadolinium Comparison: None provided Findings: Partially empty sella. Normal alignment without acute fracture. Unremarkable visualized cord. Unremarkable paravertebral soft tissues. Multilevel disc dehydration. Qlko-oe-seewwyvl edematous changes involving portions of the C3/C4 to C5/C6 articular processes (with mild neighboring soft tissue edematous changes) likely reactive/degenerative in nature. C3/C4: Severe right neural foraminal stenosis. C4/C5: Yuhcecdx-np-owcclu left neural foraminal stenosis. Small disc bulge. C5/C6: Ejuakfsr-bk-mvmiqs right neural foraminal stenosis and small disc bulge. C6-C7: Severe right and mild left neural foraminal stenosis. Up to 2 mm (AP dimension) right subarticular disc osteophyte associated with mild stenosis of the right aspect of the thecal sac. C7/T1 6 mm perineural cyst within the lateral aspect of the right neural foramen. T1/T2: Small central/left subarticular disc osteophyte without significant central canal compromise. IMPRESSION: C6-C7: Up to 2 mm (AP dimension) right subarticular disc osteophyte associated with mild stenosis of the right aspect of the thecal sac. Multilevel severe neural foraminal stenosis. This document has been electronically signed by: Madelaine Ng MD on 02/18/2025 10:53:04
--- NOTE | ~2025-02-17 | MR_ITS ---
CLINICAL HISTORY: CONCUSSION W UNKNOWN LOC MR Brain without gadolinium Comparison: None provided Findings: No restricted diffusion. No intra-axial mass or hemorrhage. No midline shift. No hydrocephalus. Vascular flow voids are intact. The orbits are normal. The sinuses and mastoid air cells are clear. No focal bone lesion. IMPRESSION: Unremarkable brain MRI. This document has been electronically signed by: Madelaine Ng MD on 02/18/2025 09:35:21
--- OUTSIDE RECORDS SUMMARY | 2025-02-17 09:21 | XMS_ITS | Encounter Summary ---
Author Organization [facility] Address [address] [place] [address] Care Team Providers Care Student Services Advisor Name Role Phone Hiral Johnson Primary Care Provide r Encounter Details Date Type Department Care Team (Late st Contact Info) Description 09/10/2021 [employer] Message Intial Department [address] [place] [id number] Mychart, Generic Provider [address] [place], [place] [id number] Questionnaire Submission Social History Tobacco Use Types [...] on filedocumented in this encounter Care Teams Student Services Advisor Relationship Specialty Start Date End Date Hiral Johnson PCP - General Internal Medicine 03/02/21 documented as of this encounter
--- OUTSIDE RECORDS SUMMARY | 2025-02-17 09:21 | XMS_ITS | Encounter Summary ---
Author Organization [facility] Address [address] [place] [address] Care Team Providers Care Cementer Helper Name Role Phone Hiral Johnson Primary Care Provide r Encounter Details Date Type Department Care Team (Late st Contact Info) Description 09/10/2021 [employer] Message Intial Department [address] [place] [id number] Mychart, Generic Provider [address] [place], [place] [id number] Questionnaire Submission Social History Tobacco Use Types [...] on filedocumented in this encounter Care Teams Cementer Helper Relationship Specialty Start Date End Date Hiral Johnson PCP - General Internal Medicine 03/02/21 documented as of this encounter
--- OUTSIDE RECORDS SUMMARY | 2025-02-17 09:21 | XMS_ITS | Clinical Summary ---
Author Organization [facility] Address [address] [place] [address] Care Team Providers Care Senior Network Engineer Name Role Phone Hiral Johnson Primary Care Provide r Allergies Active Allergy Reactions Criticality Noted Date Comments [place] Dermatitis 05/04/2021 Gabapentin Hives 05/19/2021 Brule Itching 05/04/2021 itching throat and lips Sertraline Rash 03/02/2021 Medications ALPRAZolam (XANAX) 2 mg tablet Take 2 mg by mouth 3 times a day as needed for anxiety. Active NIFEdipine XL (PROCARDIA XL) 90 mg tablet Take 90 mg by mouth once a day. Active metFORMIN (GLUCOPHAGE) 1,000 mg tablet Take 1,000 mg by mouth once. Active hydroCHLOROthia zide (HYDRODIURIL) 25 mg tablet Take 50 mg by mouth once a day. Active buPROPion SR (WELLBUTRIN SR) 150 mg tablet Take 150 mg by mouth once. Active albuterol (PROAIR HFA,VENTOLIN HFA) 90 mcg inhaler Inhale 1-2 puffs by mouth every 6 hours as needed for wheezing or shortness of breath. Use with spacer. Active omeprazole (PriLOSEC) 20 mg capsule Take 20 mg by mouth once a day. Active cetirizine (ZyrTEC) 10 mg tablet TAKE 1 TABLET BY MOUTH EVERY DAY 1 Active multivitamin (THERAGRAN) tablet Take 1 tablet by mouth once a day. Active cinnamon bark, bulk, powder 1 capsule. Active furosemide (LASIX) 20 mg tablet 1 Active acetaminophen (TYLENOL) 325 mg tablet Take 2 tablets (650 mg total) by mouth every 6 hours. 1 Active docusate sodium (COLACE) 100 mg capsule Take 1 capsule (100 mg total) by mouth 2 times a day. Active oxyCODONE IR (ROXICODONE) 5 mg tablet Take 1 tablet (5 mg total) by mouth every 4 hours as needed for breakthrough pain. Max Daily Amount: 30 mg 8 tablet 05/21/2021 1:01 PM EST Active polyethylene glycol 3350 (MIRALAX) 17 gram packet Take 1 packet (17 g total) by mouth once a day. Mix powder in 4 to 8 oz of water, juice, coffee, or tea daily as needed for constipation. Active senna (SENOKOT) 8.6 mg tablet Take 2 tablets (17.2 mg total) by mouth nightly. Active simethicone (MYLICON) 80 mg chewable tablet Chew and swallow 1 tablet (80 mg total) by mouth 4 times a day as needed for flatulence (gas pain). 1 Active Active Problems Problem Noted Date Diagnosed Date Adrenal adenoma 06/29/2021 Renal cancer 06/26/2021 Resolved Problems Problem Noted Date Diagnosed Date Resolved Date Renal mass 02/28/2021 06/26/2021 Immunizations Immunization Administration Dates Next Due Influenza, Injectable, Quadrivalent, Preservativ e Free 05/21/2021 Family History Medical History Relation Name Comments Cancer Father Heart disease Father Stroke Father Diabetes Mother Heart disease Mother Hyperlipidemia Mother Relation Name Status Comments Father Mother Alive Social History Tobacco Use Types Packs/Day Years [...] Orientation Straight 05/15/2021 1: 25 PM EST Last Filed Vital Signs Vital Sign Reading Time Taken Comments Blood Pressure 121/71 11/05/2021 11:32 AM EDT Pulse 83 11/05/2021 11:32 AM EDT Temperature 36.7 C (98.1 F) 05/21/2021 11:00 AM EST Respiratory Rate 18 05/21/2021 11:00 AM EST Oxygen Saturation 95% 05/21/2021 11:00 AM EST Inhaled Oxygen Concentration - - Weight 92.4 kg (203 lb 9.6 oz) 05/18/2021 11:28 AM EST Height 159 cm (5' 2.6 ) 05/18/2021 11:28 AM EST Body Mass Index 36.53 05/18/2021 11:28 AM EST Plan of Treatment Health Maintenance Due Date Last Done Comments Cervical Cancer Screening 1966 Cologuard 1966 Colon Cancer Screening 1966 Colonoscopy 1966 FOBT / Fit Test 1966 HIV Screening 1966 HPV and Pap Smear 1966 Hepatitis C Screening 1966 Pap Smear 1966 Sigmoidoscopy 1966 Hepatitis B Vaccines (1 of 3 - 19+ 3-dose series) 1985 Zoster Vaccines (1 of 2) 1985 Mammogram 2006 DTaP,Tdap,and Td Vaccines (1 - Tdap) 12/20/2007 12/19/2007 Pneumococcal Vaccine: 50+ Ye ars (2 of 2 - PCV) 03/28/2009 03/28/2008 Alcohol/Substance Use Screening 06/06/2024 Depression Screening and Follow-Up 06/06/2024 Social Drivers of Health [place] ual Screening 06/06/2024 COVID-19 Vaccine (6 - 2024-2 6 season) 2025 01/08/2022, 08/29/2021, 03/31/2021, Additional history exists Influenza Vaccine (#1) 2025 , 02/23/2019, 03/10/2018, Additional history exists RSV Vaccine (60+ years old a nd patients) (1 - 1-dose 75+ series) 2041 Insurance MEDICARE [facility] Advance Directives Documents on File Type Date Recorded Patient Team Physician Expl anation Health Care Proxy 05/04/2021 2:38 PM Health Care Proxy 05/04/2021 12:31 PM * Full Code (Latest Code Status on File) Date Activated Date Inactivated Comments 05/18/2021 11:03 AM 05/21/2021 4:24 PM Care Teams Senior Network Engineer Relationship Specialty Start Date End Date Hiral Johnson PCP - General Internal Medicine 03/02/21
--- OUTSIDE RECORDS SUMMARY | 2025-02-17 09:21 | XMS_ITS | Clinical Summary ---
Author Organization [facility] [address] [facility] l[address] Address [address] [place] [address] Phone Care Team Providers Care Recovery Coordinator Name Role Phone Hiral Johnson MD Primary Care Prov ider Allergies Active Allergy Reactions Criticality Noted Date Comments Citalopram Hydrobromide Hives 04/15/2011 Food Allergy Formula 02/22/2014 almonds Gabapentin Hives 05/19/2021 Lamotrigine Rash,Hives 08/12/2008 Oxcarbazepine Hives 10/27/2010 Paroxetine Other,Unknown 08/12/2008 Irion Itching 05/04/2021 itching throat and lips Peanut 09/08/2018 Sertraline Rash 03/02/2021 Medications medical 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 05/21/20 21 Active polyethylene glycol (MIRALAX) 17 gram packet Take 1 packet (17 g) by mouth daily as needed. Mix powder in 4 to 8 oz of water, juice, coffee or tea daily as needed for constipation. 05/21/20 21 Active omeprazole (PriLOSEC) [address] capsule Take 1 capsule (20 mg total) by mouth 2 (two) times a day. 06/03/20 23 Active multivitamin tablet Take 1 tablet by mouth 1 (one) time each day. Active metroNIDAZOLE (METROCREAM) 0.75 % cream Apply 1 Application topically 2 (two) times a day. 07/11/19 Active ketorolac (ACULAR) 0.5 % ophthalmic solution Administer 1 drop into affected eye(s). 09/11/19 Active furosemide (LASIX) 20 mg tablet Take 1 tablet (20 mg total) by mouth 1 (one) time each day. 05/06/20 Active docusate sodium (COLACE) 100 mg capsule Take 1 capsule (100 mg total) by mouth. 05/21/20 Active cinnamon bark, bulk, powder 1 capsule by Other route. Active acetaminophen (TYLENOL) 325 mg tablet Take 2 tablets (650 mg total) by mouth. 05/21/20 Active cetirizine (ZyrTEC) 10 mg tablet Take 1 tablet (10 mg total) by mouth 1 (one) time each day. 90 tablet 1 07/30/19 25 Active Ventolin HFA 90 mcg/actuation inhaler INHALE 2 PUFFS BY MOUTH EVERY 4 HOURS NEEDED FOR WHEEZING OR FOR COUGH 54 g 1 08/17/19 25 Active buPROPion XL (WELLBUTRIN XL) 150 mg 24 hr tablet TAKE 1 TABLET BY MOUTH EVERY DAY IN THE MORNING 90 tablet 1 08/24/19 25 Active NIFEdipine CC (ADALAT CC) 90 mg 24 hr tabletIndicatio ns:Essential (primary) hypertension TAKE 1 TABLET BY MOUTH EVERY DAY 90 tablet 1 08/24/19 25 Active metFORMIN XR (GLUCOPHAGE-XR) 500 mg 24 hr tablet TAKE 2 TABLETS BY MOUTH EVERY DAY IN THE MORNING WITH BREAKFAST 180 tablet 1 08/24/19 25 Active hydroCHLOROthia zide (HYDRODIURIL) 25 mg tabletIndicatio ns:Essential (primary) hypertension TAKE 2 TABLETS BY MOUTH EVERY DAY 180 tablet 1 08/24/19 25 Active calcium carbonate 1,500 mg (600 mg elemental calcium) tablet TAKE 1 TABLET BY MOUTH EVERY DAY 30 tablet 11/27/19 25 Active Additional Information Patient not taking.Reported on 12/10/2024 cyanocobalamin (VITAMIN B-12) 1,000 mcg tablet Take 1 tablet (1,000 mcg total) by mouth 1 (one) time each day. 90 tablet 12/18/19 25 Active ALPRAZolam (XANAX) 2 mg tabletIndicatio ns:Anxiety disorder, unspecified TAKE 1 TABLET BY MOUTH THREE TIMES DAILY NEEDED FOR ANXIETY 90 tablet 5 12/27/19 25 Active clobetasoL (TEMOVATE) 0.05 % cream APPLY TOPICALLY TO THE AFFECTED AREA(S) TWICE DAILY NEEDED 180 g 01/04/20 25 Active senna (SENOKOT) 8.6 mg tablet Take 2 tablets (17.2 mg total) by mouth 1 (one) time each day. 180 tablet 01/01/20 25 Active cholecalciferol (VITAMIN D-3) 50 mcg (2,000 unit) tablet TAKE 1 TABLET BY MOUTH EVERY DAY 90 tablet 01/22/20 25 Active cholecalciferol (VITAMIN D-3) 50 mcg (2,000 unit) tablet TAKE 1 TABLET BY MOUTH EVERY DAY 90 tablet 1 07/17/19 25 025 Discontinued Active Problems Problem Noted Date Diagnosed Date Postconcussion syndrome 01/18/2025 IFG (impaired fasting glucose) 12/03/2022 Renal cell cancer ([facility] V24, [facility] V28) Status post nephrectomy 06/04/2021 Overview (02/13/2024): Renal clear cell carcinoma of the left kidney Carotid artery calcification 09/23/2016 Overview (04/25/2024): Seen on CT neck 09/05/16 from [facility]. Read as advanced for age Cat allergies 03/19/2015 Obesity, Class III, BMI 40-49.9 (morbid obesity) 11/20/2012 Posttraumatic stress disorder 08/12/2008 Bipolar affect, depressed ([facility] V24, [facility] V28) 08/12/2008 Essential hypertension, benign 01/11/2008 PCOS (polycystic ovarian syndrome) 01/11/2008 Anxiety 01/11/2008 Asthma 01/11/2008 Overview (04/25/2024): Mild intermitt Depression 01/11/2008 Encounters Date Type Department Care Team Description 02/05/2025 Telephone Neurostroke - [place] [address] [place] [address] Mary Beth Caraballo MA 01/21/2025 1:20 PM EDT Consult Neurostroke - [place] [address] [place] [phone] Madhav Lucia, ALVERTO Concussion with unknown loss of consciousness status, sequela ([facility] V24) (Primary Dx); Concussion without loss of consciousness, initial encounter; Neck pain; Post-traumatic headache, not intractable, unspecified chronicity pattern 01/18/2025 10:00 AM EDT [address] [phone] Hiral Johnson MD Postconcussion syndrome (Primary Dx); Bipolar affective disorder, current episode depressed, current episode severity unspecified ([facility] V24, [facility] V28); Posttraumatic stress disorder 01/11/[address] [phone] Hiral Johnson MD 01/11/[address] [phone] Hiral Johnson MD 12/26/[address] [phone] Hiral Johnson MD 12/26/[address] [phone] Hiral Jhonson MD 12/25/[address] [phone] Hiral Johnson MD 12/24/2024 [facility] [address] [phone] Hiral Johnson MD 12/21/2024 [facility] [address] [phone] Hiral Johnson MD 12/21/2024 [facility] [address] [phone] Hiral Johnson MD 12/20/2024 Telephone [facility] [address] [place] [address] Nino Tariq PA 12/11/2024 Telephone [facility] [address] [place] [phone] Hiral Johnson MD 12/10/2024 11:00 AM EDT Telemedicine [facility] [address] [place] [phone] Hiral Johnson MD Posttraumatic stress disorder (Primary Dx); Anxiety; Renal cell carcinoma of left kidney ([facility] V24, [facility] V28) from Last 3 Months Immunizations Name Administration Dates Next Due Influenza Quadravalent, MDCK , 0.5ml, preservative free (Flucelvax) 6mo and older 05/03/2023,02/23/2019,03/10/2018 Influenza Quadravalent, MDCK , 0.5ml, with preservative (Flucelvax) 6mo and older 02/14/2017 Influenza Quadrivalent, 0.5m l, preservative free (Fluarix; FluLaval; Fluzone) ages 6mo and older (Afluria) 3yo and older 05/21/2021 Influenza Whole 03/28/2008 Influenza trivalent, 0.5mL ( Fluad) 65yo and older 02/23/2013,04/15/2011,02/23/2010,03/28 Influenza trivalent, 0.5mL, preservative free (Fluarix; FluLaval; Fluzone) ages 6mo and older (Afluria) 3 years and older 04/14/2024,05/21/2021 Influenza trivalent, with pr eservative (Fluzone; Afluria) 6mo and older 02/23/2013,04/15/2011,02/23/2010 Pfizer (ages 12 & older) SUSAN S-CoV-2 COVID-19, mRNA, LNP-S, annette-sucrose, preservative free 01/08/2022,08/29/2021 Pfizer SARS-CoV-2 COVID-19, mRNA, LNP-S, preservative free 01/08/2022,08/28/2021,08/08/2020 Pneumococcal polysaccharide 23 valent (Pneumovax 23) 2yo and older 03/28/2008 TD, Adsorbed, Preservative Free 12/19/2007 Td Tetanus diptheria (Tdvax) 7yo and older 12/19/2007 Zoster recombinant (Shingrix ) 19yo and older 04/14/2024,12/18/2023,12/17/2023 Surgical History Surgery Date Site/Laterality Comments KNEE SURGERY PROCEDURE: HISTORICAL KNEE SURGERY; COMMENT: acl repair left knee 2007 SECTION PROCEDURE: AR DELIVERY ONLY; COMMENT: 1990 OTHER SURGICAL HISTORY 06/06/2002 PROCEDURE: AR DILATION & CURETTAGE DX&/THER NONOBSTETRIC CHOLECYSTECTOMY 11/10/2020 PROCEDURE: AR LAPAROSCOPY SURG CHOLECYSTECTOMY Medical History Medical History Date Comments Depression 01/11/2008 DX:Depression PCOS (polycystic ovarian syndrome) 01/11/2008 DX:PCOS (polycystic ovarian syndrome); COMMENT: was on metformin since 2002 and notes menses are regular on menses Bipolar affect, depressed ([facility] MS/HCC V24, CMS/HCC V28) 08/12/2008 DX:Bipolar affect, depressed (HCC) Asthma 01/11/2008 DX:Asthma; COMME NT: Mild intermitt Anxiety 01/11/2008 DX:Anxiety Essential hypertension, benign 01/11/2008 D X:Essential hypertension, benign Family History Medical History Relation Name Comments Depression Mother Hypertension Mother Relation Name Status Comments Father Mother Alive Social History Tobacco Use Types Packs/Day Years Used Date Smoking Tobacco: Never Smokeless Tobacco: Never Alcohol Use Standard Drinks/Week Comments No 0 (1 standard drink = 0.6 oz pur e alcohol) Comments No Sex and Gender Information Value Date Recorded Sex Assigned at Female 06/14/2024 10:56 AM EST Legal Sex Female 5:41 AM EST Gender Identity Female 06/14/2024 10:56 AM EST Sexual Orientation Straight 06/14/2024 10 :56 AM EST Obstetrics History Last Filed Vital Signs Vital Sign Reading Time Taken Comments Blood Pressure 120/72 01/21/2025 1:29 PM EDT Pulse 89 01/21/2025 1:29 PM EDT Temperature 36.9 C (98.5 F) 06/08/2024 10:55 AM EST Respiratory Rate - - Oxygen Saturation 98% 01/21/2025 1:29 PM EDT Inhaled Oxygen Concentration - - Weight 84.8 kg (187 lb) 06/08/2024 10:55 AM EST Height 157.5 cm (5' 2 ) 06/08/2024 10:55 AM EST Body Mass Index 34.2 06/08/2024 10:55 AM EST Plan of Treatment Upcoming Encounters Date Type Department Care Team (Late st Contact Info) Description 02/27/2025 1:40 PM EDT Telemedicine Neurostroke - [place] [address] [place] [address] Madhav Lucia, ALVERTO [address] [place] [address] 05/29/2025 8:30 AM EST Telemedicine Adult Medicine - [place] [address] [place] [phone] Hiral Johnson MD [address] [place] [address] Health Maintenance Due Date Last Done Comments Hepatitis B Vaccines (1 of 3 - 19+ 3-dose series) 1985 Pneumococcal Vaccine: 50+ Years (2 of 2 - PCV) 03/28/2009 03/28/2008 DTaP,Tdap,and Td Vaccines (2 - Td or Tdap) 12/18/2017 12/19/2007, 12/19/2007 Cervical Cancer Screening: Pap Smear 09/08/2020 09/08/2017, 11/20/2012 Cholesterol Screening (Lipid Panel) 05/15/2022 01/12/2017 HIV Screening 05/15/2022 Medicare Annual Wellness Visit 05/15/2022 Social Influencers of Health Screening 05/15/2022 Depression Screening 06/06/2024 10/08/2021 Breast Cancer Screening 09/27/2024 09/27/2022 COVID-19 Vaccine (10 - Pfizer risk season) 2025 04/14/2024, 05/03/2023, 01/08/2022, Additional history exists Influenza Vaccine (#1) 2025 , 05/03/2023, 05/21/2021, Additional history exists Hypertension/CHF/CAD Annual BMP Blood Test 06/08/2025 06/08/2024, 11/12/2022 Colorectal Cancer Screening: Colonoscopy 05/17/2033 05/17/2023 Hepatitis C Screening Completed 10/08/2021 Zoster Vaccines Completed 04/14/2024, 12/04, 12/17/2023 HIB Vaccines Aged Out No longer eligi ble based on patient's age to complete this topic HPV Vaccines Aged Out No longer eligi ble based on patient's age to complete this topic Hepatitis A Vaccines Aged Out No long er eligible based on patient's age to complete this topic IPV Vaccines Aged Out No longer eligi ble based on patient's age to complete this topic MMR Vaccines Aged Out No longer eligi ble based on patient's age to complete this topic Meningococcal ACWY Vaccine Aged Out N o longer eligible based on patient's age to complete this topic Meningococcal B Vaccine Aged Out No l onger eligible based on patient's age to complete this topic RSV Immunization Patients Under 20 months Aged Out No longer eligible based on patient's age to complete this topic Varicella Vaccines Aged Out No longer eligible based on patient's age to complete this topic Procedures Procedure Name Priority Date/Time Associated Diagnosis Comments COMPREHENSIVE METABOLIC PANEL Routine 06/08/2024 11:37 AM EST Recurrent major depressive disorder, remission status unspecified ([facility] V24) COLONOSCOPY Routine 05/17/2023 MAMMOGRAPHY Routine 09/27/2022 DEPRESSION SCREENING Routine 10/08/2021 HEPATITIS C SCREENING Routine 10/08/2021 PAP SMEAR Routine 09/08/2017 LIPID PANEL Routine 01/12/2017 from Last 3 Months or Most Recently Relevant to Health Maintenance Results * (ABNORMAL) Comprehensive metabolic panel (06/08/2024 11:37 AM EST) Sodium 135 133 - 145 mmol/L LAB CHEMISTRY METHOD 06/08/2024 3:22 PM [facility] Potassium 4.0 3.5 - 5.5 mmol/L LAB CHEMISTRY METHOD 06/08/2024 3:22 PM [facility] Chloride 100 96 - 110 mmol/L LAB CHEMISTRY METHOD 06/08/2024 3:22 PM [facility] CO2 28 21 - 32 mmol/L LAB CHEMISTRY METHOD 06/08/2024 3:22 PM [facility] Anion Gap 7 3 - 11 LAB CHEMISTRY METHOD 06/08/2024 3:22 PM [facility] Glucose 78 70 - 100 mg/dL LAB CHEMISTRY METHOD 06/08/2024 3:22 PM [facility] BUN 22 5 - 25 mg/dL LAB CHEMISTRY METHOD 06/08/2024 3:22 PM [facility] Creatinine 1.21(H) 0.50 - 1.10 mg/dL LAB CHEMISTRY METHOD 06/08/2024 3:22 PM [facility] eGFR 52(L) >=60 mL/min/1. 73m2 LAB CHEMISTRY METHOD 06/08/2024 3:22 PM [facility] Comment:Calculation based on the Chronic Kidney Disease Epidemiology Collaboration (CKD-EPI) equation refit without adjustment for race. BUN/Creatinine Ratio 18.2 LAB CHEMISTRY METHOD 06/08/2024 3:22 PM [facility] Calcium 9.7 8.5 - 10.5 mg/dL LAB CHEMISTRY METHOD 06/08/2024 3:22 PM [facility] AST (SGOT) 19 10 - 42 unit/L LAB CHEMISTRY METHOD 06/08/2024 3:22 PM [facility] ALT (SGPT) 30 10 - 60 unit/L LAB CHEMISTRY METHOD 06/08/2024 3:22 PM [facility] Alkaline Phosphatase 137(H) 42 - 121 unit/L LAB CHEMISTRY METHOD 06/08/2024 3:22 PM EST [facility] Total Protein 8.5(H) 6.0 - 8.0 g/dL LAB CHEMISTRY METHOD 06/08/2024 3:22 PM EST [facility] Albumin 4.3 3.2 - 5.0 g/dL LAB CHEMISTRY METHOD 06/08/2024 3:22 PM EST [facility] Total Bilirubin 0.4 0.0 - 1.4 mg/dL LAB CHEMISTRY METHOD 06/08/2024 3:22 PM EST [facility] Blood Venous blood specimen / Unknown Venipuncture / Unknown 06/08/2024 11:37 AM EST 06/08/2024 11:37 AM EST Hiral Johnson MD LAB BLOOD ORDERABL ES Final Result [facility] [address] [place] [address], * Colonoscopy (05/17/2023) Pathologist [facility] Colonoscopy 10 yr fu Anatomical Region Laterality Modality Other Historical Provider HEALTH MAINTENANCE Final Result * Mammography (09/27/2022) Pathologist [facility] Mammogram 1 yr fu Anatomical Region Laterality Modality Other Historical Provider HEALTH MAINTENANCE Final Result * Depression Screening (10/08/2021) Pathologist [facility] Depression Screening 1 yr fu Historical Provider HEALTH MAINTENANCE Final Result * Hepatitis C Screening (10/08/2021) [facility] Hepatitis C Screening abstracted Historical Provider HEALTH MAINTENANCE Final Result * Pap Smear (09/08/2017) Pathologist [facility] Pap smear 3 yr fu Historical Provider HEALTH MAINTENANCE Final Result * Lipid panel (01/12/2017) Triglycerides 206 mg/dL Cholesterol 243 mg/dL HDL 38 mg/dL Blood Venous blood specimen / Unknown Historical Provider LAB BLOOD ORDERABLES Radha l Result from Last 3 Months or Most Recently Relevant to Health Maintenance Insurance [place]ICA[place] - [place] [facility] MEDICARE ADVANTAGE on file [employer] [facility] MEDICARE ADVANTAGE on file MED[place]ID - [place] Advance Directives Documents on File Type Date Recorded 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
--- OUTSIDE RECORDS SUMMARY | 2025-02-17 09:21 | XMS_ITS ---
Author Name [facility] Organization Unknown History of Medication Use Medication Directions Dispensed Refills Start Date End Date Stat cholecalciferol (VITAMIN D-3) 50 mcg (2,000 unit) tablet TAKE 1 TABLET BY MOUTH EVERY DAY 01/21/2025 active clobetasoL (TEMOVATE) 0.05 % cream APPLY TOPICALLY TO THE AFFECTED AREA(S) TWICE DAILY NEEDED 01/03/2025 active senna (SENOKOT) 8.6 mg tablet Take 2 tablets (17.2 mg total) by mouth 1 (one) time each day. 12/31/2024 active ALPRAZolam (XANAX) 2 mg tablet TAKE 1 TABLET BY MOUTH THREE TIMES DAILY NEEDED FOR ANXIETY 12/26/2024 active cyanocobalamin (VITAMIN B-12) 1,000 mcg tablet Take 1 tablet (1,000 mcg total) by mouth 1 (one) time each day. 12/17/2024 active calcium carbonate 1,500 mg (600 mg elemental calcium) tablet TAKE 1 TABLET BY MOUTH EVERY DAY 11/26/2024 active buPROPion XL (WELLBUTRIN XL) 150 mg 24 hr tablet TAKE 1 TABLET BY MOUTH EVERY DAY IN THE MORNING 08/23/2024 active hydroCHLOROthiazide (HYDRODIURIL) 25 mg tablet TAKE 2 TABLETS BY MOUTH EVERY DAY 08/23/2024 active metFORMIN XR (GLUCOPHAGE-XR) 500 mg 24 hr tablet TAKE 2 TABLETS BY MOUTH EVERY DAY IN THE MORNING WITH BREAKFAST 08/23/2024 active NIFEdipine CC (ADALAT CC) 90 mg 24 hr tablet TAKE 1 TABLET BY MOUTH EVERY DAY 08/23/2024 active Ventolin HFA 90 mcg/actuation inhaler INHALE 2 PUFFS BY MOUTH EVERY 4 HOURS NEEDED FOR WHEEZING OR FOR COUGH 08/16/2024 active cetirizine (ZyrTEC) 10 mg tablet Take 1 tablet (10 mg total) by mouth 1 (one) time each day. 07/30/2024 active omeprazole (PriLOSEC) [address] capsule Take 1 capsule (20 mg total) by mouth 2 (two) times a day. 06/03/2023 active acetaminophen (TYLENOL) 325 mg tablet Take 2 tablets (650 mg total) by mouth. 05/21/2021 active docusate sodium (COLACE) 100 mg capsule Take 1 capsule (100 mg total) by mouth. 05/21/2021 active polyethylene glycol (MIRALAX) 17 gram packet Take 1 packet (17 g) by mouth daily as needed. Mix powder in 4 to 8 oz of water, juice, coffee or tea daily as needed for constipation. 05/21/2021 active simethicone (MYLICON) 80 mg chewable tablet Chew 1 tablet (80 mg total). 05/21/2021 active furosemide (LASIX) 20 mg tablet Take 1 tablet (20 mg total) by mouth 1 (one) time each day. 05/06/2021 active ketorolac (ACULAR) 0.5 % ophthalmic solution Administer 1 drop into affected eye(s). 09/11/2019 active metroNIDAZOLE (METROCREAM) 0.75 % cream Apply 1 Application topically 2 (two) times a day. 07/11/2017 active cinnamon bark, bulk, powder 1 capsule by Other route. 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 active Allergies Allergen Reaction Severity Comment Documented Date Source Statu s GABAPENTIN HIVES 05/19/2021 [facility] active PEACH ITCHING itching throat and lips 05/04/2021 [facility] active SERTRALINE RASH 03/02/2021 [facility] active PEANUT 09/08/2018 [facility] active FOOD ALLERGY FORMULA almonds 02/22/2014 [facility] active CITALOPRAM HYDROBROMIDE HIVES 04/15/2011 [facility] active OXCARBAZEPINE HIVES 10/27/2010 [facility] acti ve LAMOTRIGINE HIVES 08/12/2008 [facility] active PAROXETINE 08/12/2008 [facility] active Problems Problem Status Onset Date Problem Type Date of Resoluti on Source Bipolar affect, depressed ([facility] V24, [facility] V28) active 2008-08-12 ProblemAct [facility] Status post nephrectomy active 2021-06-04 ProblemAct [facility] Postconcussion syndrome active 2025-01-18 ProblemAct [facility] Obesity, Class III, BMI 40-49.9 (morbid obesity) active 2012-11-20 ProblemAct [facility] Asthma active 2008-01-11 ProblemAct [facility] PCOS (polycystic ovarian syndrome) active 2008-01-11 ProblemAct [facility] Depression active 2008-01-11 ProblemAct [facility] Anxiety active 2008-01-11 ProblemAct [facility] Posttraumatic stress disorder active 2008-08-12 ProblemAct [facility] IFG (impaired fasting glucose) active 2022-12-03 ProblemAct [facility] Renal cell cancer ([facility] V24, [facility] V28) active 2021-06-26 ProblemAct [facility] Essential hypertension, benign active 2008-01-11 ProblemAct [facility] Cat allergies active 2015-03-19 ProblemAct [facility] Carotid artery calcification active 2016-09-23 ProblemAct [facility] Immunizations Vaccine Date Source Lot Number Status Influenza trivalent, 0.5mL, preservative free (Fluarix; FluLaval; Fluzone) ages 6mo and older (Afluria) 3 years and older 04/14/2024 [facility] [id number] completed Influenza trivalent, 0.5mL, preservative free (Fluarix; FluLaval; Fluzone) ages 6mo and older (Afluria) 3 years and older 04/14/2024 [facility] [id number] completed Zoster recombinant (Shingrix ) 19yo and older 04/14/2024 [facility] [id number] completed Zoster recombinant (Shingrix ) 19yo and older 04/14/2024 [facility] [id number] completed Zoster recombinant (Shingrix ) 19yo and older 12/18/2023 [facility] completed Zoster recombinant (Shingrix ) 19yo and older 12/18/2023 [facility] completed Zoster recombinant (Shingrix ) 19yo and older 12/17/2023 [facility] [id number] completed Zoster recombinant (Shingrix ) 19yo and older 12/17/2023 [facility] [id number] completed Influenza Quadravalent, MDCK , 0.5ml, preservative free (Flucelvax) 6mo and older 05/03/2023 [facility] [id number] completed Influenza Quadravalent, MDCK , 0.5ml, preservative free (Flucelvax) 6mo and older 05/03/2023 [facility] [id number] completed [facility] (ages 12 & older) SUSAN S-CoV-2 COVID-19, mRNA, LNP-S, annette-sucrose, preservative free 01/08/2022 [facility] [id number] completed [facility] (ages 12 & older) SUSAN S-CoV-2 COVID-19, mRNA, LNP-S, annette-sucrose, preservative free 01/08/2022 [facility] [id number] completed [facility] SARS-CoV-2 COVID-19, mRNA, LNP-S, preservative free 01/08/2022 [facility] completed [facility] SARS-CoV-2 COVID-19, mRNA, LNP-S, preservative free 01/08/2022 [facility] completed [facility] (ages 12 & older) SUSAN S-CoV-2 COVID-19, mRNA, LNP-S, annette-sucrose, preservative free 08/29/2021 [facility] [id number] completed [facility] (ages 12 & older) SUSAN S-CoV-2 COVID-19, mRNA, LNP-S, annette-sucrose, preservative free 08/29/2021 [facility] [id number] completed [facility] SARS-CoV-2 COVID-19, mRNA, LNP-S, preservative free 08/28/2021 [facility] completed [facility] SARS-CoV-2 COVID-19, mRNA, LNP-S, preservative free 08/28/2021 [facility] completed Influenza Quadrivalent, 0.5m l, preservative free (Fluarix; FluLaval; Fluzone) ages 6mo and older (Afluria) 3yo and older 05/21/2021 [id number] completed Influenza Quadrivalent, 0.5m l, preservative free (Fluarix; FluLaval; Fluzone) ages 6mo and older (Afluria) 3yo and older 05/21/2021 [facility] [id number] completed Influenza trivalent, 0.5mL, preservative free (Fluarix; FluLaval; Fluzone) ages 6mo and older (Afluria) 3 years and older 05/21/2021 [facility] [id number] completed Influenza trivalent, 0.5mL, preservative free (Fluarix; FluLaval; Fluzone) ages 6mo and older (Afluria) 3 years and older 05/21/2021 [facility] [id number] completed [facility] SARS-CoV-2 COVID-19, mRNA, LNP-S, preservative free 08/08/2020 [facility] completed Pfizer SARS-CoV-2 COVID-19, mRNA, LNP-S, preservative free 08/08/2020 [facility] completed Influenza Quadravalent, MDCK , 0.5ml, preservative free (Flucelvax) 6mo and older [id number] completed Influenza Quadravalent, MDCK , 0.5ml, preservative free (Flucelvax) 6mo and older 02/23/[facility] [id number] completed Influenza Quadravalent, MDCK , 0.5ml, preservative free (Flucelvax) 6mo and older 03/10/2018 [facility] [id number] completed Influenza Quadravalent, MDCK , 0.5ml, preservative free (Flucelvax) 6mo and older 03/10/2018 [facility] [id number] completed Influenza Quadravalent, MDCK , 0.5ml, with preservative (Flucelvax) 6mo and older 02/14/2017 [facility] [id number] completed Influenza Quadravalent, MDCK , 0.5ml, with preservative (Flucelvax) 6mo and older 02/14/2017 [facility] [id number] completed Influenza trivalent, 0.5mL ( Fluad) 65yo and older 02/23/2013 [facility] [id number] completed Influenza trivalent, 0.5mL ( Fluad) 65yo and older 02/23/2013 [facility] [id number] completed Influenza trivalent, with pr eservative (Fluzone; Afluria) 6mo and older 02/23/2013 [facility] [id number] completed Influenza trivalent, with pr eservative (Fluzone; Afluria) 6mo and older 02/23/2013 [facility] [id number] completed Influenza trivalent, 0.5mL ( Fluad) 65yo and older 04/15/2011 [facility] [id number] completed Influenza trivalent, 0.5mL ( Fluad) 65yo and older 04/15/2011 [facility] [id number] completed Influenza trivalent, with pr eservative (Fluzone; Afluria) 6mo and older 04/15/2011 [facility] [id number] completed Influenza trivalent, with pr eservative (Fluzone; Afluria) 6mo and older 04/15/2011 [facility] [id number] completed Influenza trivalent, 0.5mL ( Fluad) 65yo and older 02/23/2010 [facility] [id number] completed Influenza trivalent, 0.5mL ( Fluad) 65yo and older 02/23/2010 [facility] [id number] completed Influenza trivalent, with pr eservative (Fluzone; Afluria) 6mo and older 02/23/[address] [id number] completed Influenza trivalent, with pr eservative (Fluzone; Afluria) 6mo and older 02/23/[address] [id number] completed Influenza trivalent, 0.5mL ( Fluad) 65yo and older 03/28/2008 [facility] completed Influenza trivalent, 0.5mL ( Fluad) 65yo and older 03/28/2008 [facility] completed Influenza Whole 03/28/2008 [facility] [id number] completed Influenza Whole 03/28/2008 [facility] [id number] completed Pneumococcal polysaccharide 23 valent (Pneumovax 23) 2yo and older 03/28/2008 [facility] 0803U com pleted Pneumococcal polysaccharide 23 valent (Pneumovax 23) 2yo and older 03/28/2008 [facility] 0803U com pleted Td Tetanus diptheria (Tdvax) 7yo and older 12/19/2007 [facility] completed Td Tetanus diptheria (Tdvax) 7yo and older 12/19/2007 [facility] completed TD, Adsorbed, Preservative Free 12/19/2007 [facility] completed TD, Adsorbed, Preservative Free 12/19/2007 [facility] completed Encounters Encounter Type Encounter Reason Primary Diagnosis Location Date Ambulatory Concussion with loss of consciousness status unknown, sequela (CMS/HCC V24) Concussion with loss of consciousness status unknown, sequela (CMS/HCC V24) [facility] [place] Care Team Organization Name Specialty Phone Email Start Date End Da te [facility] MARIYATONO Primary Care 01/27/2025 [facility] MARIYATONO Primary Care 01/21/2025 [facility] CHANA MERAZTONO Primary Care 04/13/2022 01/23/2024
--- OUTSIDE RECORDS SUMMARY | 2025-02-17 09:21 | XMS_ITS | Clinical Summary ---
Author Organization [facility] Address [address] [place] [id number] Phone Care Team Providers Care Cable Lacer Name Role Phone Unknown, Unknown Primary Care Provider Dash flores Self-Referred, Patient Unavailable Unavailab le Allergies Active Allergy Reactions Criticality Noted Date Comments [place] Dermatitis 05/04/2021 Citalopram Hydrobromide Hives 04/15/2011 Food Allergy Formula 02/22/2014 almonds Gabapentin Hives,Unknown 05/19/2021 Ibuprofen 2024 Other Reaction(s): kidney disease Lamotrigine Hives,Rash Low 08/12/2008 Naproxen Sodium 2024 Other Reaction(s): kidney disease Oxcarbazepine Hives 10/27/2010 Paroxetine Other (See Comments),Unknown 08/12/2008 [place] Itching 05/04/2021 itching throat and lips itching throat and lips Peanut Hives 09/08/2018 Sertraline Hives,Rash Low 03/02/2021 Trazodone Hives 2024 Medications No known medications Encounters Date Type Department Care Team Description 2024 10:53 PM EDT - 12/09/2024 12:50 AM EDT Emergency [facility] [address] [place] [address] Dana Bro MD Discharge Disposition: Home or Self Care from Last 3 Months Social History Tobacco Use Types Packs/Day Years Used Date Smoking Tobacco: Never Assessed Education Answer Date Recorded Are you interested in more education? Not on santino e 10/01/2022 Are you concerned about learning? Not on file 10/01/2022 No 10/01/2022 No 10/01/2022 Digital Access Answer Date Recorded No 10/30/2022 No 10/30/2022 No 10/30/2022 Reliable internet access at home? Not on file 10/30/2022 Device with a working camera? Not on file Intimate Partner Violence Answer Date R ecorded Are you denied basic needs s uch as food, clothing, or medical care? No 2024 In the past 12 months have y ou been in a relationship with a person who hurts, threatens, or tries to control you? No 2024 Are you denied basic needs s uch as food, clothing, or medical care? No 2024 In the past 12 months have y ou been in a relationship with a person who hurts, threatens, or tries to control you? No 2024 Comments Unknown Sex and Gender Information Value Date Recorded Sex Assigned at Choose not to disclose 10/2024 11:21 PM EDT Legal Sex Female 9:39 PM EDT Gender Identity Choose not to disclose 11:21 PM EDT Sexual Orientation Choose not to disclose 2024 11:21 PM EDT Last Filed Vital Signs Vital Sign Reading Time Taken Comments Blood Pressure 167/72 12/09/2024 12:47 AM EDT Pulse 64 12/09/2024 12:47 AM EDT Temperature 36.8 C (98.2 F) 12/09/2024 12:47 AM EDT Respiratory Rate 18 12/09/2024 12:47 AM EDT Oxygen Saturation 97% 12/09/2024 12:47 AM EDT Inhaled Oxygen Concentration - - Weight 81.6 kg (180 lb) 2024 8:20 PM EDT Height 157.5 cm (5' 2 ) 2024 8:20 PM EDT Body Mass Index 32.92 2024 8:20 PM EDT Plan of Treatment Health Maintenance Due Date Last Done Comments DEPRESSION SCREENING 1978 SMOKING Hx and SMOKELESS TOBACCO SCREENING 12/09/1979 HEPATITIS C SCREENING 1984 HIV ONE-TIME SCREENING (18-65 YEARS) 1984 PAP SMEAR 12/09/1987 MAMMOGRAM 2006 COLOGUARD 12/09/2011 COLONOSCOPY 12/09/2011 COLORECTAL CANCER SCREENING 12/09/2011 FIT TEST 12/09/2011 FOBT 12/09/2011 SIGMOIDOSCOPY 12/09/2011 VIRTUAL COLONOSCOPY 12/09/2011 PNEUMOCOCCAL VACCINES (50+ years) (2 of 2 - PCV) 2016 03/28/2008 ZOSTER VACCINES (1 of 2) 2016 Adult Td,Tdap Booster 12/18/2017 12/19/2007 LIPID PANEL 01/12/2022 01/12/2017 INFLUENZA VACCINE (#1) 2025 , 05/21/2021, 02/23/2019, Additional history exists COVID-19 VACCINE ( season) 2025 05/03/2023, 01/08/2022, 08/29/2021, Additional history exists SCREENING FOR DIABETES 12/09/2027 2024 HEPATITIS A VACCINES Aged Out No long er eligible based on patient's age to complete this topic HIB VACCINES Aged Out No longer eligi ble based on patient's age to complete this topic MENINGOCOCCAL VACCINES (ACWY) Aged Out No longer eligible based on patient's age to complete this topic MENINGOCOCCAL VACCINES (B) Aged Out N o longer eligible based on patient's age to complete this topic Medical Devices Not on file Procedures Procedure Name Priority Date/Time Associated Diagnosis Comments BASIC METABOLIC PANEL STAT 2024 11:40 PM EDT from Last 3 Months Results * (ABNORMAL) Basic metabolic panel (2024 11:40 PM EDT) SODIUM 139 133 - 146 mmol/L [facility] CHLORIDE 101 96 - 108 mmol/L [facility] POTASSIUM 3.5 3.3 - 5.1 mmol/L [facility] CO2 27 21 - 35 mmol/L [facility] BUN 26(H) 6 - 19 mg/dL [facility] CREATININE 1.10 0.5 - 1.5 mg/dL [facility] GLUCOSE 98 70 - 99 mg/dL [facility] CALCIUM 9.8 8.4 - 10.3 mg/dL [facility] EGFR 58(L) >59 mL/min/1.7 3m2 [facility] Comment:Estimated glomerular filtration rate calculated using the CKD-EPI refit equation. ANION GAP 15 10 - 20 mmol/L [facility] Blood 2024 11:4 0 PM EDT 2024 11:43 PM EDT us Dana Bro MD LAB BLOOD ORDERABLES Final R esult [facility] [address] [place] [address] from Last 3 Months Insurance [facility] MEDICARE REPLACEMENT MEDICARE PART A & B [facility] MEDICARE REPLACEMENT MEDICARE PART A [place] [address] MEDICARE PART A & [facility] [place] [address] MEDICARE PART A & B [place] [facility] RE[facility] MEDICARE PART A & B [place] MEDICARE PART A & B [facility] MEDICARE REPLACEMENT MEDICARE PART A & B [place] [facility]IC[facility] PART A & [facility] [facility] MEDICARE REPLACEMENT Care Teams Cable Lacer Relationship Specialty Start Date End Date Unknown, Unknown, MD PCP - General 06/11/21 Self-Referred, Patient Referring Physician 06/11/21 Additional Source Comments The information contained in this document represents components of the legal health record. It is not the complete legal health record.[facility]
== END 2025-02-17 09:18 | disposition home or self-care (01) ==
LOC: HO.MRI 09:17
PROVIDERS: PCP Internal Medicine; Visit Provider Nurse Practitioner Gerontology
DX: S06.0XAD Concussion with loss of consciousness status unknown, subsequent encounter (principal); G44.309 Post-traumatic headache, unspecified, not intractable
CPT/HCPCS: 70551; 72141

== ENCOUNTER → 2025-02-17 09:35 | Outpatient (BNV) | payer OTHER, MEDICAID, SELFPAY | PROVIDERS: PCP Internal Medicine; Visit Provider Radiology Diagnostic Radiology | DX: M48.02 Spinal stenosis, cervical region (principal); M50.23 Other cervical disc displacement, cervicothoracic region; S06.0XAA Concussion with loss of consciousness status unknown, initial encounter | CPT/HCPCS: 70551; 72141 ==

== ENCOUNTER 2025-05-10 11:00 | Outpatient (RCR) | payer OTHER, SELFPAY ==
[2025-03-13 09:06] VITALS: BP 125/66; PULSE 79
== END 2025-06-04 14:39 | disposition home or self-care (01) ==
LOC: HO.PT 11:00
PROVIDERS: PCP Internal Medicine; Visit Provider Nurse Practitioner Gerontology
DX: M54.2 Cervicalgia (principal); M54.50 Low back pain, unspecified
CPT/HCPCS: 95992; 97110; 97112; 97140; 97162

== ENCOUNTER 2025-05-22 10:40 | Outpatient (REF) | payer MEDICARE, MEDICAID, SELFPAY ==
--- OUTSIDE RECORDS SUMMARY | 2024-06-27 04:30 | XMS_ITS ---
Author Organization [facility] luis fernando [place] Address [address] [place] [address] Care Team Providers Care Form Press Operator Name Role Phone Hiral Nunes Primary Care Provide r Unavailable Flory Mcintosh Unavailable [phone] Allergies Allergen (clinical drug ingredient) Drug/Non Drug [...] Negative Encounters Encounter Location Date Provider Diagnosis [facility] [address] [place] [address] 06/27/2024 Flory Mcintosh Plan Of Treatment No Information Progress Notes * Cortney NARAYANDOB:[birth year] (59 yo F)Acc No.[id number]:06/27/2024 Progress Notes Patient: Cortney HOYOS Provider: Remi Mcintosh DPM :1965 A ge:58 Y S ex:Female Date:06/27/2024 Address:[address] [place], [place] [id number] Pcp:Hiral Mcginnis in Subjective: * Chief Complaints: [...] enies. C ardiovascular: Pacemaker d enies. M INTERPRETER TRANSLATOR d enies. W PW d enies. C [...] affeine: yes. Children: yes, 1. Exercise: yes, mandaeism, [employer], choir, volunteering. Marital status: Single, single. [...] 0 06/27/2024 Generated for Nisreen ramsey/Yulissa/Nakita on: 07/23/2024 01:34 PM EST
--- OUTSIDE RECORDS SUMMARY | 2025-02-20 04:30 | XMS_ITS ---
Author Organization [facility] Address [address] [place] [address] Care Team Providers Care Garment Supervisor Name Role Phone Hiral Nunes Primary Care Provide r Unavailable Flory Mcintosh Unavailable [phone] Encounters Encounter Location Date Provider Diagnosis [facility] [address] [place] [address] 02/20/2025 Flory Mcintosh Plan Of Treatment No Information Progress Notes * Cortney NARAYANDOB:[birth year] (59 yo F)Acc No.[id number]:02/20/2025 Progress Note Patient: Cortney HOYOS Provider: Remi Mcintosh DPM :1965 A ge:59 Y S ex:Female Date:02/20/2025 Address:[address], [facility] Pcp:Hiral Mcginnis in Subjective: * Chief Complaints: * * Medical History: Objective: * Vitals: Assessment: Plan: * Treatment: * Images: * The named appointment provid er may or may not be the originator of this progress note, and it is not deemed complete until electronically signed by the appointment provider. Sign off status: Pending * Provider: Remi Mcintosh DPM Date: 0 02/20/2025 Generated for Nisreen ramsey/Yulissa/Citlalliitting on: 1 07/23/2024 01:34 PM EST
--- NOTE | ~2025-05-22 | MM_ITS ---
EXAMINATION: MM SCREENING DIGITAL BREAST TOMOSYNTHESIS, BILATERAL CLINICAL INFORMATION: Screening. Asymptomatic. History of left breast needle core biopsy in 2011. COMPARISON: Comparison made to multiple prior, most recent October 26, 2023, and most remote December 23, 2015. TECHNIQUE: Digital breast tomosynthesis is performed in mediolateral oblique and craniocaudal views along with computer-aided detection (CAD). Synthesized 2D images are generated from the tomosynthesis. FINDINGS: BREAST COMPOSITION: There are scattered areas of fibroglandular density. RIGHT BREAST: No significant masses, suspicious calcifications or other abnormalities are seen. LEFT BREAST: Tissue marker from previous needle core biopsy. No significant masses, suspicious calcifications or other abnormalities are seen. MM/MM tomosynthesis screening BI IMPRESSION: BILATERAL BREASTS: Benign, no mammographic evidence of malignancy. Normal interval follow-up is recommended in 12 months. ASSESSMENT: BI-RADS: Category 2: Benign RECOMMENDATION: Routine annual mammography screening. FOLLOW-UP: 1 year F/U This examination should not preclude the clinical evaluation of a suspicious palpable abnormality. This patient's information was entered into a reminder system with a target due date for their next mammogram. Electronically signed by: Melba Winslow MD 05/22/2025 04:23 PM VICTOR M
--- OUTSIDE RECORDS SUMMARY | 2025-05-22 13:34 | XMS_ITS | Clinical Summary ---
Author Organization [facility] [address] [facility] lding Address [address] [place] [address] Phone Care Team Providers Care Rn Behavioral Health Name Role Phone Hiral Johnson MD Primary Care Prov ider Allergies Active Allergy Reactions Criticality Noted Date Comments Citalopram Hydrobromide Hives 04/15/2011 Food Allergy Formula 02/22/2014 almonds Gabapentin Hives 05/19/2021 Lamotrigine Rash,Hives 08/12/2008 Oxcarbazepine Hives 10/27/2010 Paroxetine Other,Unknown 08/12/2008 [place] Itching 05/04/2021 itching throat and lips Peanut 09/08/2018 Sertraline Rash 03/02/2021 Medications medical marijuana 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 1 Active polyethylene glycol (MIRALAX) 17 gram packet Take 1 packet (17 g) by mouth daily as needed. Mix powder in 4 to 8 oz of water, juice, coffee or tea daily as needed for constipation. 1 Active omeprazole (PriLOSEC) [address] capsule Take 1 capsule (20 mg total) by mouth 2 (two) times a day. 3 Active multivitamin tablet Take 1 tablet by mouth 1 (one) time each day. Active metroNIDAZOLE (METROCREAM) 0.75 % cream Apply 1 Application topically 2 (two) times a day. 8 Active ketorolac (ACULAR) 0.5 % ophthalmic solution Administer 1 drop into affected eye(s). 0 Active furosemide (LASIX) 20 mg tablet Take 1 tablet (20 mg total) by mouth 1 (one) time each day. 1 Active docusate sodium (COLACE) 100 mg capsule Take 1 capsule (100 mg total) by mouth. 1 Active acetaminophen (TYLENOL) 325 mg tablet Take 2 tablets (650 mg total) by mouth. 1 Active calcium carbonate 1,500 mg (600 mg elemental calcium) tablet TAKE 1 TABLET BY MOUTH EVERY DAY 30 tablet 5 Active ALPRAZolam (XANAX) 2 mg tabletIndication s:Anxiety disorder, unspecified TAKE 1 TABLET BY MOUTH THREE TIMES DAILY NEEDED FOR ANXIETY 90 tablet 5 5 Active clobetasoL (TEMOVATE) 0.05 % cream APPLY TOPICALLY TO THE AFFECTED AREA(S) TWICE DAILY NEEDED 180 g 5 Active cholecalciferol (VITAMIN D-3) 50 mcg (2,000 unit) tablet TAKE 1 TABLET BY MOUTH EVERY DAY 90 tablet 5 Active buPROPion XL (WELLBUTRIN XL) 150 mg 24 hr tablet TAKE 1 TABLET BY MOUTH EVERY DAY IN THE MORNING 90 tablet 1 5 Active metFORMIN XR (GLUCOPHAGE-XR) 500 mg 24 hr tablet TAKE 2 TABLETS BY MOUTH EVERY DAY IN THE MORNING WITH BREAKFAST 180 tablet 1 5 Active hydroCHLOROthiaz farhat (HYDRODIURIL) 25 mg tabletIndication s:Essential (primary) hypertension TAKE 2 TABLETS BY MOUTH EVERY DAY 180 tablet 1 5 Active NIFEdipine CC (ADALAT CC) 90 mg 24 hr tabletIndication s:Essential (primary) hypertension TAKE 1 TABLET BY MOUTH EVERY DAY 90 tablet 1 5 Active senna 8.6 mg tablet TAKE 2 TABLETS BY MOUTH EVERY DAY 180 tablet 5 Active cyanocobalamin (VITAMIN B-12) 1,000 mcg tablet TAKE 1 TABLET BY MOUTH ONCE DAILY 90 tablet 5 Active Ventolin HFA 90 mcg/actuation inhaler INHALE 2 PUFFS BY MOUTH EVERY 4 HOURS NEEDED FOR WHEEZING OR SHORTNESS OF BREATH 54 g 5 Active cetirizine (ZyrTEC) 10 mg tablet Take 1 tablet (10 mg total) by mouth 1 (one) time each day. 90 tablet 5 Active Active Problems Problem Noted Date Diagnosed Date Postconcussion syndrome 01/18/2025 IFG (impaired fasting glucose) 12/03/2022 Renal cell cancer 06/26/2021 Status post nephrectomy 06/04/2021 Overview (02/13/2024): Renal clear cell carcinoma of the left kidney Carotid artery calcification 09/23/2016 Overview (04/25/2024): Seen on CT neck 09/05/16 [facility]. Read as advanced for age Cat allergies 03/19/2015 Obesity, Class III, BMI 40-49.9 (morbid obesity) 11/20/2012 Posttraumatic stress disorder 08/12/2008 Bipolar affect, depressed 08/12/2008 Essential hypertension, benign 01/11/2008 PCOS (polycystic ovarian syndrome) 01/11/2008 Anxiety 01/11/2008 Asthma 01/11/2008 Overview (04/25/2024): Mild intermitt Depression 01/11/2008 Encounters Date Type Department Care Team Description 04/08/2025 Telephone Adult [address] [phone] Hiral Johnson MD 03/20/2025 Results Follow-Up Adult [facility] [address] [place] [phone] Drake Camacho RN 03/19/2025 2:00 PM EDT Office Visit Adult [address] [phone] Marion Rea MD Sore throat (Primary Dx); Acute cough 03/19/2025 Telephone Adult [address] [phone] Hiral Johnson MD 02/27/2025 1:40 PM EDT Telemedicine Neurostroke - [place] [address] [place] [address] Madhav Lucia, ALVERTO Concussion without loss of consciousness, initial encounter (Primary Dx); Cervical radiculopathy from Last 3 Months Immunizations Immunization Administration Dates Next Due Influenza Quadravalent, MDCK [...] Pfizer SARS-CoV-2 COVID-19, mRNA, LNP-S, preservative free 01/08/2022,08/28/2021,03/31/2021,08/20,08/08/2020 Pneumococcal polysaccharide 23 valent (Pneumovax 23) 2yo and older 03/28/2008 TD, Adsorbed, Preservative Free 12/19/2007 Td Tetanus diptheria (Tdvax) 7yo and older 12/19/2007 Zoster recombinant (Shingrix ) 19yo and older 04/14/2024,12/18/2023,12/17/2023 Surgical History Surgery Date Site/Laterality Comments KNEE SURGERY PROCEDURE: HISTORICAL KNEE SURGERY; COMMENT: acl repair left knee 2007 SECTION PROCEDURE: [facility] DELIVERY ONLY; COMMENT: 1990 OTHER SURGICAL HISTORY 06/06/2002 PROCEDURE: [facility] DILATION & CURETTAGE DX&/THER NONOBSTETRIC CHOLECYSTECTOMY 11/10/2020 PROCEDURE: [facility] LAPAROSCOPY SURG CHOLECYSTECTOMY Medical History Medical History [...] Date Smoking Tobacco: Never Smokeless Tobacco: Never Tobacco Cessation:Counseling Given: Not Answered Alcohol Use Standard Drinks/Week Comments No 0 (1 standard drink = 0.6 oz pur e alcohol) Housing Instability Answer Date Recorde d Are you worried that in the next 2 months you may not have stable housing? No 02/21/2025 Food Access & Nutrition Answer Date Rec orded Do you have access to a vari ety of food including fruits and vegetables? Yes 02/21/2025 Access to Healthcare Answer Date Record ed Within the last 3 months, ho w many times did you visit the emergency department for your medical care? 4 02/21/2025 Health Literacy Answer Date Recorded How often do you need to hav e someone help you when you read instructions, pamphlets, or other written material from your doctor or pharmacy? Sometimes 02/21/2025 Caregiver: How often do you need to have someone help you when you read instructions, pamphlets, or other written material from your doctor or pharmacy? Not on file 02/21/2025 Financial Risk Answer Date Recorded How hard is it for you to pa y for the very basics like food, housing, medical care, and air conditioning / heating? Somewhat hard 02/21/2025 Transportation Answer Date Recorded Has the lack of transportati on kept you from meetings, work, or from getting things needed for daily living? Yes Has the lack of transportati on kept you from medical appointments or from getting medications? Yes 02/21/2025 Social Isolation Answer Date Recorded How often do you feel lonely or isolated from th ose around you? Always 02/21/2025 Food Risk Answer Date Recorded Within the past 12 months we worried whether our food would run out before we got money to buy more. Sometimes true 025 Within the past 12 months th e food we bought just didn't last and we didn't have money to get more. Never true 02/21/2025 Dependent Care Answer Date Recorded Do you need help finding or paying for care for your loved ones. For example, child care center assistant director or elderly care for an older adult? No 02/21/2025 Education Answer Date Recorded Do you think completing more education or training, like finishing a GED, going to college, or learning a trade, would be helpful for you? No 02/21/2025 Employment and Income Answer Date Recor ded During the last four weeks, have you been actively looking for work? No 02/21/2025 Living Situation Answer Date Recorded What is your living situation? Unrecognized valu e 02/21/2025 Comments No Sex and Gender Information Value Date Recorded Sex Assigned at Female 06/14/2024 10:56 AM EST Legal Sex Female 5:41 AM EST Gender Identity Female 06/14/2024 10:56 AM EST Sexual Orientation Straight 06/14/2024 10 :56 AM EST Last Filed Vital Signs Vital Sign Reading Time Taken Comments Blood Pressure 123/91 03/19/2025 1:50 PM EDT Pulse 100 03/19/2025 1:50 PM EDT Temperature 36.3 C (97.4 F) 03/19/2025 1:50 PM EDT Respiratory Rate 16 03/19/2025 1:50 PM EDT Oxygen Saturation 98% 01/21/2025 1:29 PM EDT Inhaled Oxygen Concentration - - Weight 82.1 kg (181 lb) 03/19/2025 1:50 PM EDT Height 162 cm (5' 3.78 ) 03/19/2025 1:50 PM EDT Body Mass Index 31.28 03/19/2025 1:50 PM EDT Plan of Treatment Upcoming Encounters Date Type Department Care Team (Late st Contact Info) Description 07/09/2025 9:30 AM EST Office Visit Adult Medicine - [facility] [address] [place] [phone] Hiral Johnson MD [address] [place] [address] Health Maintenance Due Date Last Done Comments Drug Screen 1965 Non-Opioid Controlled Substance Agreement 1966 Hepatitis B Vaccines (1 of 3 - 19+ 3-dose series) 1985 Pneumococcal Vaccine: 50+ Years (2 of 2 - PCV) 03/28/2009 03/28/2008 RSV Immunization Adult Patients (1 - Risk 50-74 years 1-dose series) 2016 DTaP,Tdap,and Td Vaccines (2 - Td or Tdap) 12/18/2017 12/19/2007, 12/19/2007 Cervical Cancer Screening: Pap Smear 09/08/2020 09/08/2017 Cholesterol Screening (Lipid Panel) 05/15/2022 01/12/2017 HIV Screening 05/15/2022 Medicare Annual Wellness Visit 05/15/2022 Breast Cancer Screening 09/27/2024 09/27/2022 COVID-19 Vaccine ( season) 2025 04/14/2024, 05/03/2023, 01/08/2022, Additional history exists Influenza Vaccine (#1) 2025 , 05/03/2023, 05/21/2021, Additional history exists Hypertension/CHF/CAD Annual BMP Blood Test 06/08/2025 06/08/2024, 11/12/2022 Social Influencers of Health Screening 02/21/2026 02/21/2025 Colorectal Cancer Screening: Colonoscopy 05/17/2033 05/17/2023 Hepatitis C Screening Completed 10/08/2021 Zoster Vaccines Completed 04/14/2024, 12/04, 12/17/2023 Depression Screening Completed 02/21/2025, 10/09/19 22 HIB Vaccines Aged Out No longer eligi [...] Procedure Name Priority Date/Time Associated Diagnosis Comments STREP A PCR Routine 03/19/2025 2:33 PM EDT Sore throat POC RAPID STREP A Routine 03/19/2025 2:1 5 PM EDT Sore throat COMPREHENSIVE METABOLIC PANEL Routine 06/08/2024 11:37 AM EST Recurrent major depressive disorder, remission status unspecified (CMS/HCC V24) COLONOSCOPY Routine 05/17/2023 MAMMOGRAPHY Routine 09/27/2022 DEPRESSION SCREENING Routine 10/08/2021 HEPATITIS C SCREENING Routine 10/08/2021 PAP SMEAR Routine 09/08/2017 LIPID PANEL Routine 01/12/2017 from Last 3 Months or Most Recently Relevant to Health Maintenance Results * Strep A molecular study (03/19/2025 2:33 PM EDT) Pathologist [facility] GRP A Strep PCR Not Detected Not Detected LAB MICROBIOLOGY METHOD 03/19/2025 6:15 PM EDT [facility] Swab Structure of anterior region of neck / Unknown Non-blood Collection / Unknown 03/19/2025 2:33 PM EDT 03/19/2025 2:33 PM EDT us Marion Rea MD LAB MICROBIOLOGY - GEN ERAL ORDERABLES Final Result [facility] [address] [place] [address], [place] [phone] * POC rapid strep A manually resulted (03/19/2025 2:15 PM EDT) Swab Structure of anterior region of neck / Unknown 03/19/2025 2:15 PM EDT us Marion Rea MD POINT OF CARE TEST ENT ER/EDIT ORDERABLES Final Result * (ABNORMAL) Comprehensive metabolic panel (06/08/2024 11:37 AM EST) Sodium 135 133 - 145 mmol/L LAB CHEMISTRY METHOD 06/08/2024 3:22 PM [facility] Potassium 4.0 3.5 - 5.5 mmol/L LAB CHEMISTRY METHOD 06/08/2024 3:22 PM [facility] Chloride 100 96 - 110 mmol/L LAB CHEMISTRY METHOD 06/08/2024 3:22 PM [facility] CO2 28 21 - 32 mmol/L LAB CHEMISTRY METHOD 06/08/2024 3:22 PM [facility] Anion Gap 7 3 - 11 LAB CHEMISTRY METHOD 06/08/2024 3:22 PM [facility] Glucose 78 70 - 100 mg/dL LAB CHEMISTRY METHOD 06/08/2024 3:22 PM [facility] BUN 22 5 - 25 mg/dL LAB CHEMISTRY METHOD 06/08/2024 3:22 PM [facility] Creatinine 1.21(H) 0.50 - 1.10 mg/dL LAB CHEMISTRY METHOD 06/08/2024 3:22 PM [facility] eGFR 52(L) >=60 mL/min/1. 73m2 LAB CHEMISTRY METHOD 06/08/2024 3:22 PM [facility] Comment:Calculation based on the Chronic Kidney Disease Epidemiology Collaboration (CKD-EPI) equation refit without adjustment for race. BUN/Creatinine Ratio 18.2 LAB CHEMISTRY METHOD 06/08/2024 3:22 PM [facility] Calcium 9.7 8.5 - 10.5 mg/dL LAB CHEMISTRY METHOD 06/08/2024 3:22 PM [facility] AST (SGOT) 19 10 - 42 unit/L LAB CHEMISTRY METHOD 06/08/2024 3:22 PM [facility] ALT (SGPT) 30 10 - 60 unit/L LAB CHEMISTRY METHOD 06/08/2024 3:22 PM [facility] Alkaline Phosphatase 137(H) 42 - 121 unit/L LAB CHEMISTRY METHOD 06/08/2024 3:22 PM [facility] Total Protein 8.5(H) 6.0 - 8.0 g/dL LAB CHEMISTRY METHOD 06/08/2024 3:22 PM [facility] Albumin 4.3 3.2 - 5.0 g/dL LAB CHEMISTRY METHOD 06/08/2024 3:22 PM [facility] Total Bilirubin 0.4 0.0 - 1.4 mg/dL LAB CHEMISTRY METHOD 06/08/2024 3:22 PM [facility] Blood Venous blood specimen / Unknown Venipuncture / Unknown 06/08/2024 11:37 AM EST 06/08/2024 11:37 AM EST us Hiral Johnson MD LAB BLOOD ORDERABL ES Final Result [facility] [address] [place] [address], * Colonoscopy (05/17/2023) Colonoscopy 10 yr fu Anatomical Region Laterality Modality Other Historical Provider HEALTH MAINTENANCE Final Result * Mammography (09/27/2022) Mammogram 1 yr fu Anatomical Region Laterality Modality Other Historical Provider HEALTH MAINTENANCE Final Result * Depression Screening (10/08/2021) Depression Screening 1 yr fu [facility] Provider HEALTH MAINTENANCE Final Result * Hepatitis C Screening (10/08/2021) Hepatitis C Screening abstracted [facility] Provider HEALTH MAINTENANCE Final Result * Pap Smear (09/08/2017) Pap smear 3 yr fu [facility] Provider HEALTH MAINTENANCE Final Result * Lipid panel (01/12/2017) Pathologist [facility] Triglycerides 206 mg/dL Cholesterol 243 mg/dL HDL 38 mg/dL Blood Venous blood specimen / Unknown [facility] Provider LAB BLOOD ORDERABLES Radha l Result from Last 3 Months or Most Recently Relevant to Health Maintenance Insurance [place] MEDICARE [employer] GENER[employer] Advance Directives Documents on File Type Date Recorded Patient Multiple Sclerosis Nurse Expl anation Health Care Decision (hx) 09/01/2015 AD DOMINIQUE DIRECTIVE Health Care Decision (hx) 09/01/2015 AD DOMINIQUE DIRECTIVE Health Care Decision (hx) 08/26/2015 AD DOMINIQUE DIRECTIVE Health Care Decision (hx) 08/26/2015 AD DOMINIQUE DIRECTIVE Health Care Decision (hx) 08/25/2015 AD DOMINIQUE DIRECTIVE Health Care Decision (hx) 08/25/2015 AD DOMINIQUE DIRECTIVE Care Teams Rn Behavioral Health Relationship Specialty Start Date End Date Hiral Johnson MD [address] [place] [id number] PCP - General 01/04/08
--- OUTSIDE RECORDS SUMMARY | 2025-05-22 13:34 | XMS_ITS | Encounter Summary ---
Author Organization [employer] [address] Care Team Providers Care Vice President Planning Name Role Phone Hiral Johnson MD Primary Care Prov ider Encounter Details Date Type Department Care Team (Late st Contact Info) Description 03/20/2025 Results Follow-Up Adult Medicine [facility] [address] [place] [phone] Drake Camacho, RN Social History Tobacco Use Types Packs/Day Years [...] your loved ones. For example, child care provider or elderly care for an older adult? [...] Orientation Straight 06/14/2024 10 :56 AM EST documented as of this encounter Plan of Treatment Upcoming Encounters Date Type Department Care Team (Late st Contact Info) Description 07/09/2025 9:30 AM EST Office Visit Adult Medicine [facility] [address] [place] [address] Hiral Johnson MD [address] [place] [address] documented as of this encounter Visit Diagnoses Not on filedocumented in this encounter Additional Health Concerns Assessment Noted Time PHQ-9 Depression Total Score: 19 025 11:28 AM EDT documented as of this encounter Care Teams Vice President Planning Relationship Specialty Start Date End Date Hiral Johnson MD [address] [place] [id number] PCP - General 01/04/08 documented as of this encounter
--- OUTSIDE RECORDS SUMMARY | 2025-05-22 13:34 | XMS_ITS | Encounter Summary ---
Author Organization [facility] Address [address] [place] [address] Care Team Providers Care Sausage Cooker Name Role Phone Hiral Johnson Primary Care Provide r Encounter Details Date Type Department Care Team (Late st Contact Info) Description 09/10/2021 [employer] Message Intial Department [address] [place] [id number] Mychart, Generic Provider [address] [place], [place] [id number] Questionnaire Submission Social History Tobacco Use Types [...] on filedocumented in this encounter Care Teams Sausage Cooker Relationship Specialty Start Date End Date Hiral Johnson PCP - General Internal Medicine 03/02/21 documented as of this encounter
--- OUTSIDE RECORDS SUMMARY | 2025-05-22 13:34 | XMS_ITS | Encounter Summary ---
Author Organization [facility] Address [address] [place] [address] Care Team Providers Care Cooling Pipe Inspector Name Role Phone Hiral Johnson Primary Care Provide r Encounter Details Date Type Department Care Team (Late st Contact Info) Description 09/10/2021 [email or web address] Message Intial Department [address] [place] [phone] Mychart, Generic Provider [address] [place], [place] [id number] Questionnaire Submission Social History Tobacco Use Types [...] on filedocumented in this encounter Care Teams Cooling Pipe Inspector Relationship Specialty Start Date End Date Hiral Johnson PCP - General Internal Medicine 03/02/21 documented as of this encounter
--- OUTSIDE RECORDS SUMMARY | 2025-05-22 13:35 | XMS_ITS | Patient Health Record ---
Author [facility] Address [address] [place] [address] Care Team Providers Care Staff Mine Warfare Officer Name Role Phone Hiral Nunes Primary Care Provide r Unavailable Flory Mcintosh Unavailable [phone] Allergies Allergen (clinical drug ingredient) Drug/Non Drug Allergy documented on EMR Reaction Allergy Type Onset Date Status psych medication (uncoded) Unknown Allergy Active ibuprofen Advil kidney disease Drug Allergy Ac tive Aleve kidney disease Drug Allergy Ac tive Motrin kidney disease Drug Allergy Ac tive gabapentin Gabapentin Unknown Drug Allergy Activ e Reason For Referral No Information Medications Medication SIG (Take, Route, Frequency, Duration) Notes Start Date End Date Status NIFEdipine ER 90 MG 1 tablet on an empty stomach Orally Once a day Active Buproban Active ALPRAZolam 2 MG 1 tablet Orally Twic e a day Active metFORMIN HCl 1000 MG 1 tablet with a me al Orally Once a day Active Vitamin B12 Active Vitamin D3 Active Calcium Not-Taking Senna Active Albuterol Active Simethicone 80 MG 1 tablet after meals and at bedtime as needed Orally Four times a day Active Cetirizine HCl Activ e Naftin 2 % 1 application [employer] Shift Lead ally Apply twice a day to toenails; Duration: 30 days 09/07/2024 Active Immunizations Vaccine Route Administration Date Status Comme nts Influenza Unknown 02/05/2024 Administered Social History Tobacco Use: Social History Observation [...] ast year? No Points 0 Interpretation Negative Problems Problem Type SNOMED Code ICD Code Onset Dates Problem Status W/U Status Risk Notes Problem Acquired hallux valgus (58477027) Hallux valgus (acquired), right foot (M20.11) Active confirmed Vital Signs Blood pressure diastolic 80 mm Hg 11/27/2024 Height 5ft2in in 11/27/2024 Blood pressure systolic 124 mm Hg 11/27/2024 Weight 180 lbs 11/27/2024 BMI 32.92 kg/m2 11/27/2024 Encounters Encounter Location Date Provider Diagnosis [address] [phone] 09/07/2024 Flory Mcintosh Pain in right toe(s) M79.674 ; Onychomycosis B35.1 ; Pain in left toe(s) M79.675 ; Pain in right foot M79.671 ; Pain in right ankle and joints of right foot M25.571 ; Bursitis of right foot M77.51 and Hallux valgus (acquired), right foot M20.[address] [facility] [address] 11/27/2024 Flory Mcintosh Onychomycosis B35.1 ; Ingrown nail L60.0 ; Pain in right toe(s) M79.674 and Pain in left toe(s) M79.[address] [address] 06/26/2024 Flory Mcintosh [address] [address] 02/06/2025 Flory Mcintosh Assessments Encounter Date Diagnosis (ICD Code) Assessment Notes Treatment Notes Treatment Clinical Notes Section Notes 09/07/2024 Pain in right toe(s) (ICD-10 - M79.674) 11/27/2024 Ingrown nail (ICD-10 - L60.0) 11/27/2024 Onychomycosis (ICD-10 - B35.1) 09/07/2024 Pain in left toe(s) (ICD-10 - M79.675) 09/07/2024 Onychomycosis (ICD-10 - B35.1) 11/27/2024 Pain in right toe(s) (ICD-10 - M79.674) 11/27/2024 Pain in left toe(s) (ICD-10 - M79.675) 09/07/2024 Pain in right foot (ICD-10 - M79.671) 09/07/2024 Pain in right ankle and joints of right foot (ICD-10 - M25.571) 09/07/2024 Bursitis of right foot (ICD-10 - M77.51) 09/07/2024 Hallux valgus (acquired), right foot (ICD-10 - M20.11) Plan Of Treatment No Information Insurance Providers Payer Name Payer Address Payer Phone Subscriber Number Group Number Insured Name Patient Relationship to Insured Coverage Start Date Coverage End Date [employer] Claims [address] [address] [place] [address] [id number] Metz Cortney Self - patient is the insured 4 Medical (General) History Medical History History ICD Code Anxiety asthma CAD (Cholesterol) Cancer Depression Diverticulosis High Blood Pressure Kidney disease Psoriasis Measles Mumps Chicken pox Joint implants/screws PCOS Surgical History Surgery Date(Month/Year) 1990 acl & meniscus 2007 abdominoplasty 2016 Hernia Repair Adrenalectomy 2021 partial hysterectomy Gall bladder removal 2020
--- OUTSIDE RECORDS SUMMARY | 2025-05-22 13:35 | XMS_ITS | Clinical Summary ---
Author Organization [facility] Address [address] [place] [address] Care Team Providers Care Farm Machinery Engine Mechanic Name Role Phone Hiral Johnson Primary Care Provide r Allergies Active Allergy Reactions Criticality Noted Date Comments [place] Dermatitis 05/04/2021 Gabapentin Hives 05/19/2021 [place] Itching 05/04/2021 itching throat and lips Sertraline [...] Drivers of Health [place] ual Screening 06/06/2024 Influenza Vaccine (#1) 2025 , 02/23/2019, 03/10/2018, Additional history exists COVID-19 Vaccine (2024-2 6 season) 2025 01/08/2022, 08/29/2021, 03/31/2021, Additional history exists [facility] Advance Directives Documents on File Type Date Recorded Patient Senior Programmer Expl anation Health Care Proxy 05/04/2021 2:38 PM Health Care Proxy 05/04/2021 12:31 PM * Full Code (Latest Code Status on File) Date Activated Date Inactivated Comments 05/18/2021 11:03 AM 05/21/2021 4:24 PM Care Teams Farm Machinery Engine Mechanic Relationship Specialty Start Date End Date Hiral Johnson PCP - General Internal Medicine 03/02/21
--- OUTSIDE RECORDS SUMMARY | 2025-05-22 13:35 | XMS_ITS | Clinical Summary ---
Author Organization [facility] Address [address] [place] [address] Phone Care Team Providers Care Bronze Plater Name Role Phone Unknown, Unknown Primary Care Provider Dash flores Self-Referred, Patient Unavailable Unavailab le Allergies Active Allergy Reactions Criticality Noted Date Comments [place] Dermatitis 05/04/2021 Citalopram Hydrobromide Hives 04/15/2011 Food Allergy Formula 02/22/2014 almonds Gabapentin Hives,Unknown 05/19/2021 Ibuprofen 2024 Other Reaction(s): kidney disease Lamotrigine Hives,Rash Low 08/12/2008 Naproxen Sodium 2024 Other Reaction(s): kidney disease Oxcarbazepine Hives 10/27/2010 Paroxetine Other (See Comments),Unknown 08/12/2008 [place] Itching 05/04/2021 itching throat and lips itching throat and lips Peanut Hives 09/08/2018 Sertraline Hives,Rash Low 03/02/2021 Trazodone Hives 2024 Medications No known medications Social History Tobacco Use Types Packs/Day Years [...] Information Value Date Recorded Sex Assigned at Not on file Legal Sex Female 9:39 PM EDT Gender [...] history exists SCREENING FOR DIABETES 12/09/2027 2024 RSV VACCINE (1 - 1-dose 75+ series) 2041 HEPATITIS A VACCINES Aged Out No long [...] this topic Medical Devices Not on file Insurance MEDICARE PART A & B [facility] [address] [facility] MEDICARE REPLACEMENT [address] [place] [id number] MEDICARE PART A & B [facility] [address] [address] [facility] MEDICARE REPLACEMENT [address] [place] [id number] MEDICARE PART A & B [place] HEALTH MEDICARE PART [place] & [place] [facility] MEDICARE REPLACEMENT MEDICARE PART A & [place] A & B [facility] [address] [employer] PPO MEDICARE REPLACEMENT MEDICARE PART A & B Member Subscriber Plan / Payer (Ef fective 2008-Present) Name:Cortney Metz Member ID:[id number] Relation to Subscriber:Self Name:Cortney Metz Subscriber ID:[id number] Payer ID:[id number] Group ID:Not on file Type:Medicare Address: [facility] [employer] [facility] [employer] [place] [facility] [address] [place] [id number] [place] [facility] MEDICARE REPLACEMENT MEDICARE PART A & B [place] [employer] PPO MEDICARE REPLACEMENT [facility] INSURANCE Care Teams Bronze Plater Relationship Specialty Start Date End Date Unknown, Unknown, PCP - General 06/11/21 Self-Referred, Patient Referring Physician 06/11/21 Additional Source Comments The information contained in this document represents components of the legal health record. It is not the complete legal health record.[facility]
== END 2025-05-22 10:41 | disposition home or self-care (01) ==
LOC: HO.MAMMO 10:40
PROVIDERS: PCP Internal Medicine; Visit Provider Internal Medicine
DX: Z12.31 Encounter for screening mammogram for malignant neoplasm of breast (principal)
CPT/HCPCS: 77063; 77067

== ENCOUNTER → 2025-05-22 11:00 | Outpatient (BNV) | payer MEDICARE, MEDICAID, SELFPAY | PROVIDERS: PCP Internal Medicine; Visit Provider Radiology Body Imaging | DX: Z12.31 Encounter for screening mammogram for malignant neoplasm of breast (principal) | CPT/HCPCS: 77063; 77067 ==

== ENCOUNTER 2025-05-31 13:15 | Outpatient (REF) | payer MEDICARE, MEDICAID, SELFPAY ==
--- OUTSIDE RECORDS SUMMARY | 2024-06-27 04:30 | XMS_ITS ---
Author Organization [facility] luis fernando Melfa Address [address] [place] [address] Care Team Providers Care Charging Board Operator Name Role Phone Hiral Nunes Primary Care Provide r Unavailable Flory Mcintosh Unavailable [phone] Allergies Allergen (clinical drug ingredient) Drug/Non Drug Allergy documented on EMR Reaction Allergy Type Onset Date Status psych medication (uncoded) Unknown Allergy Active ibuprofen Advil kidney disease Drug Allergy Ac tive Aleve kidney disease Drug Allergy Ac tive Motrin kidney disease Drug Allergy Ac tive gabapentin Gabapentin Unknown Drug Allergy Activ e Medications Medication SIG (Take, Route, Fr equency, Duration) Notes Start Date End Date Status ALPRAZolam 2 MG 1 tablet Orally Twice a day Active Buproban Active NIFEdipine ER 90 MG 1 tablet on an empty stomach Orally Once a day Active Cetirizine HCl Activ e Simethicone 80 MG 1 tablet after meals and at bedtime as needed Orally Four times a day Active Senna Active Calcium Active Vitamin D3 Active Vitamin B12 Active metFORMIN HCl 1000 MG 1 tablet with a me al Orally Once a day Active Albuterol Active Social History Tobacco Use: Social History Observation Description Date Details (start date - stop date) Never Smoker NA - NA Tobacco use other than smoking: Question Answer Notes Are you an other tobacco user? No Tobacco Control (Standard) Question Answer Notes Tobacco use: Nonsmoker AUDIT-C (Standard) Question Answer Notes Did you have a drink containing alcohol in the p ast year? No Points 0 Interpretation Negative Encounters Encounter Location Date Provider Diagnosis [facility] [address] [place] [address] 06/27/2024 Flory Mcintosh Plan Of Treatment No Information Progress Notes * Cortney NARAYANDOB:[birth year] (59 yo F)Acc No.[id number]:06/27/2024 Progress Notes Patient: Cortney HOYOS Provider: Remi Mcintosh DPM :1965 A ge:58 Y S ex:Female Date:06/27/2024 Address:[address] [place], [place] [id number] Pcp:Hiral Mcginnis in Subjective: * Chief Complaints: * * ROS: G eneral/Constitutional: Nausea d enies. V omiting d enies. H sophia Thirst d enies. L oss appetite d enies. C hills d enies. F atigue a dmits.?Fever d enies. N ight Sweats d enies. U nexplained weight loss d enies. U nexplained weight gain d enies. H EENTM: Dentures d enies. D izziness d enies. G lasses/contacts a dmits. R etinopathy d enies. B lurred/double vision a dmits. T MJ?denies. D ischarge/drainage d enies. I mplants d enies. S ore throat d enies. D ental implants d enies. H ekaterina of hearing d enies. D ifficulty chewing/swallowing/speaking d enies. N ose bleeds d enies. S ore mouth d enies. ? R espiratory: On Oxygen d enies. P neumonia/pleurisy d enies.?Bronchitis d enies. E mphysema d enies. C oughing d enies. C ough blood?denies. S hortness of breath d enies. W heezing d enies. C ardiovascular: Pacemaker d enies. M GLOVE TAGGER d enies. W PW d enies. C HF d enies. H eart attack d enies. S eptal defect d enies. R apid beat d enies. C hest pain d enies. A trial Fib. d enies. M urmur/Palpitations d enies. G astrointestinal: Hemorrhoids d enies. S tomach/Abdominal pain d enies. D ark blood stool d enies. I rritable bowel d enies. C onstipation d enies. D iarrhea d enies. H ematology: Swelling a dmits. C lots d enies. V aricose Veins d enies. B ruising d enies. B leeding problem d enies. G enitourinary: Blood urine d enies. F requent/Painfu/urination/bladder control d enies. K idney stones d enies. I nfection (UTI) d enies. N ephropathy d enies. s ex trans dis (STD) d enies. P rostate d enies. M usculoskeletal: Hammertoes d enies. B unions d enies. B ack Pain d enies. M uscle Cramps/ Resting d enies. M uscle cramps / walking d enies.?Generalized aches and pains d enies. W eakness d enies. I nteg.: Al d enies. S cars d enies. C orns/calluses?denies. I ngrown nails a dmits. P ainful nails a dmits. O pen Sores d enies. R ashes d enies. N eurologic: Difficulty sleeping d enies. B rain disorder d enies. N umbness a dmits. B alance trouble d enies. C onfusion d enies. F ainting/blackouts d enies. T ingling a dmits. T remors d enies. * Medical History: A nxiety, Asthma, CAD (Cholesterol), Cancer, Depression, Diverticulosis, High Blood Pressure, Kidney disease, Psoriasis, Measles, Mumps, Chicken pox, Joint implants/screws, PCOS. * Surgical History: C -Section 1990, acl & meniscus 2006, abdominoplasty 2015, Hernia Repair , Adrenalectomy 2021, partial hysterectomy , Gall bladder removal 2020. * Family History: M other: alive, kidney/liver disease, foot problems, diagnosed with Diabetic - NIDDM, Unspecified essential hypertension, Family history of arthritis. F ather: , heart attack, diagnosed with Unspecified essential hypertension, Unspecified heart disease. M aternal uncle: stroke, cancer, diagnosed with Other malignant neoplasm of unspecified site. S iblings: cancer, diagnosed with Other malignant neoplasm of unspecified site. * Social History: T obacco Use: T obacco use other than smoking A re you an other tobacco user? N o Tobacco Control (Standard) T obacco use: N onsmoker D rugs/Alcohol: D rugs H ave you used drugs other than those for medical reasons in the past 12 months? N o M iscellaneous: C affeine: yes. Children: yes, 1. Exercise: yes, religion, [employer], choir, volunteering. Marital status: Single, single. Occupation: Disabled. D rug/Alcohol: A JOSE RAUL-C (Standard) D id you have a drink containing alcohol in the past year? N o P oints 0 I nterpretation N egative * Medications: T aking Cetirizine HCl , Taking Simethicone 80 MG Tablet Chewable 1 tablet after meals and at bedtime as needed Orally Four times a day , Taking Albuterol , Taking Senna , Taking Calcium , Taking Vitamin D3 , Taking Vitamin B12 , Taking metFORMIN HCl 1000 MG Tablet 1 tablet with a meal Orally Once a day , Taking ALPRAZolam 2 MG Tablet 1 tablet Orally Twice a day , Taking Buproban , Taking NIFEdipine ER 90 MG Tablet Extended Release 24 Hour 1 tablet on an empty stomach Orally Once a day * Allergies: A dvil: kidney disease, Aleve: kidney disease, Motrin: kidney disease, Gabapentin, psych medication. Objective: * Vitals: Assessment: Plan: * Treatment: * Images: * The named appointment provid er may or may not be the originator of this progress note, and it is not deemed complete until electronically signed by the appointment provider. Sign off status: Pending * Provider: Remi Mcintosh DPM Date: 0 06/27/2024 Generated for Nisreen ramsey/Yulissa/Nakita on: 08/01/2024 01:17 PM EST
--- OUTSIDE RECORDS SUMMARY | 2025-02-20 04:30 | XMS_ITS ---
Author Organization [facility] Address [address] [place] [address] Care Team Providers Care Head Waiter Name Role Phone Hiral Nunes Primary Care Provide r Unavailable Flory Mcintosh Unavailable [phone] Encounters Encounter Location Date Provider Diagnosis [facility] [address] [place] [address] 02/20/2025 Flory Mcintosh Plan Of Treatment No Information Progress Notes * Cortney NARAYANDOB:[birth year] (59 yo F)Acc No.[id number]:02/20/2025 Progress Note Patient: Cortney HOYOS Provider: Remi Mcintosh DPM :1965 A ge:59 Y S ex:Female Date:02/20/2025 Address:[address], [facility] Pcp:Hiral Mcginnis in Subjective: * Chief Complaints: [...] 02/20/2025 Generated for Nisreen ramsey/Yulissa/Citlalliitting on: 1 08/01/2024 01:17 PM EST
--- NOTE | ~2025-05-31 | US_ITS ---
CLINICAL HISTORY: C64.2 - Malignant neoplasm of left kidney, except renal pelvis US Renal Comparison: None provided Findings: Right kidney normal size and echotexture, 11.2 cm length. Left kidney normal size and echotexture, 8.8 cm length. No hydronephrosis of either kidney. Normal color Doppler IMPRESSION: 1. Normal kidneys. This document has been electronically signed by: Padilla Medley MD on 06/01/2025 11:16:02
--- NOTE | ~2025-05-31 | XR_ITS ---
EXAMINATION: XR CHEST CLINICAL INFORMATION: C64.9 - Malignant neoplasm of unspecified kidney, except renal pelvis COMPARISON: Chest 08/20/2024 TECHNIQUE: Frontal view of the chest was obtained. FINDINGS: The lungs are well-expanded and clear acute process. The heart size and pulmonary vascularity is normal. There is mild extra scoliosis with moderate spondylosis dorsal spine. No aggressive lytic or sclerotic process seen. XR/XR chest 1V IMPRESSION: Mild dextroscoliosis with dorsal spine spondylosis. No acute cardiopulmonary process seen. No major change from previous study 08/20/2024. Electronically signed by: Khang Tavares MD 05/31/2025 01:45 PM EST
--- OUTSIDE RECORDS SUMMARY | 2025-05-31 13:17 | XMS_ITS | Clinical Summary ---
Author Organization [facility] [address] [facility] [address] Address [address] [place] [address] Phone Care Team Providers Care Director Of Sustainable Design Name Role Phone Hiral Johnson MD Primary Care Prov ider Allergies Active Allergy Reactions Criticality Noted Date Comments Citalopram Hydrobromide Hives 04/15/2011 Food Allergy Formula 02/22/2014 almonds Gabapentin Hives 05/19/2021 Lamotrigine Rash,Hives 08/12/2008 Oxcarbazepine Hives 10/27/2010 Paroxetine Other,Unknown 08/12/2008 [place] Itching 05/04/2021 itching throat and lips Peanut 09/08/2018 Sertraline Rash 03/02/2021 Medications medical marijuana TEST DEPARTMENT HELPER med Active simethicone (MYLICON) 80 mg chewable [...] (100 mg total) by mouth. 05/21/20 Active acetaminophen (TYLENOL) 325 mg tablet Take 2 tablets (650 mg total) by mouth. 05/21/20 Active calcium carbonate 1,500 mg (600 mg elemental calcium) tablet TAKE 1 TABLET BY MOUTH EVERY DAY 30 tablet 11/27/19 25 Active ALPRAZolam (XANAX) 2 mg tabletIndicatio ns:Anxiety disorder, unspecified TAKE 1 TABLET BY MOUTH THREE TIMES DAILY NEEDED FOR ANXIETY 90 tablet 5 12/27/19 25 Active clobetasoL (TEMOVATE) 0.05 % cream APPLY TOPICALLY TO THE AFFECTED AREA(S) TWICE DAILY NEEDED 180 g 01/04/20 25 Active buPROPion XL (WELLBUTRIN XL) 150 mg 24 hr tablet TAKE 1 TABLET BY MOUTH EVERY DAY IN THE MORNING 90 tablet 1 02/26/20 25 Active metFORMIN XR (GLUCOPHAGE-XR) 500 mg 24 hr tablet TAKE 2 TABLETS BY MOUTH EVERY DAY IN THE MORNING WITH BREAKFAST 180 tablet 1 02/26/20 25 Active hydroCHLOROthia zide (HYDRODIURIL) 25 mg tabletIndicatio ns:Essential (primary) hypertension TAKE 2 TABLETS BY MOUTH EVERY DAY 180 tablet 1 02/26/20 25 Active NIFEdipine CC (ADALAT CC) 90 mg 24 hr tabletIndicatio ns:Essential (primary) hypertension TAKE 1 TABLET BY MOUTH EVERY DAY 90 tablet 1 02/26/20 25 Active senna 8.6 mg tablet TAKE 2 TABLETS BY MOUTH EVERY DAY 180 tablet 03/26/20 25 Active cyanocobalamin (VITAMIN B-12) 1,000 mcg tablet TAKE 1 TABLET BY MOUTH ONCE DAILY 90 tablet 04/08/20 25 Active Ventolin HFA 90 mcg/actuation inhaler INHALE 2 PUFFS BY MOUTH EVERY 4 HOURS NEEDED FOR WHEEZING OR SHORTNESS OF BREATH 54 g 04/08/20 25 Active cetirizine (ZyrTEC) 10 mg tablet Take 1 tablet (10 mg total) by mouth 1 (one) time each day. 90 tablet 04/08/20 25 Active cholecalciferol (VITAMIN D-3) 50 mcg (2,000 unit) tablet TAKE 1 TABLET BY MOUTH EVERY DAY 90 tablet 05/27/20 25 Active cholecalciferol (VITAMIN D-3) 50 mcg (2,000 unit) tablet TAKE 1 TABLET BY MOUTH EVERY DAY 90 tablet 01/22/20 25 025 Discontinued Active Problems Problem Noted Date Diagnosed Date Postconcussion syndrome 01/18/2025 IFG (impaired fasting glucose) 12/03/2022 Renal cell cancer 06/26/2021 Status post nephrectomy 06/04/2021 Overview (02/13/2024): Renal clear cell carcinoma of the left kidney Carotid artery calcification 09/23/2016 Overview (04/25/2024): Seen on CT neck 09/05/16 from [facility]. Read as advanced for age Cat allergies 03/19/2015 Obesity, Class III, BMI 40-49.9 (morbid obesity) 11/20/2012 Posttraumatic stress disorder 08/12/2008 Bipolar affect, depressed 08/12/2008 Essential hypertension, benign 01/11/2008 PCOS (polycystic ovarian syndrome) 01/11/2008 Anxiety 01/11/2008 Asthma 01/11/2008 Overview (04/25/2024): Mild intermitt Depression 01/11/2008 Encounters Date Type Department Care Team Description 04/08/2025 Telephone Adult [facility] [address] [place] [phone] Hiral Cook MD 03/20/2025 Results Follow-Up Adult [facility] [address] [place] [phone] Drake Camacho RN 03/19/2025 2:00 PM EDT Office Visit Adult [facility] [address] [place] [address] Marion Rea MD Sore throat (Primary Dx); Acute cough 03/19/2025 Telephone Adult Medicine [place] [address] [place] [address] Hiral Cook MD from Last 3 Months Immunizations Immunization Administration [...] acl repair left knee 2007 SECTION PROCEDURE: DE DELIVERY ONLY; COMMENT: 1990 OTHER SURGICAL HISTORY 06/06/2002 PROCEDURE: DE DILATION & CURETTAGE DX&/THER NONOBSTETRIC CHOLECYSTECTOMY 11/10/2020 PROCEDURE: DE LAPAROSCOPY SURG CHOLECYSTECTOMY Medical History Medical History [...] Record ed Within the last 3 months, gavino smith many times did you visit the emergency [...] care for your loved ones. For example, salesperson children's shoes or elderly care for an older adult? [...] AM EST Office Visit Adult [facility] [place] [address] [place] [address] Hiral Johnson MD [address] [place] [address] Health Maintenance Due Date Last Done Comments [...] Screening 05/15/2022 Medicare Annual Wellness Visit 05/15/2022 COVID-19 Vaccine ( season) 2025 04/14/2024, 05/03/2023, 01/08/2022, Additional history exists Influenza Vaccine (#1) 2025 , 05/03/2023, 05/21/2021, Additional history exists Hypertension/CHF/CAD Annual BMP Blood Test 06/08/2025 06/08/2024, 11/12/2022 Social Influencers of Health Screening 02/21/2026 02/21/2025 Breast Cancer Screening 05/22/2027 05/22/20 25, 05/22/2025, 09/27/2022 Colorectal Cancer Screening: Colonoscopy 05/17/2033 05/17/2023 Hepatitis [...] Procedure Name Priority Date/Time Associated Diagnosis Comments EXTERNAL MAMMOGRAM REPORT 05/22/2025 EXTERNAL MAMMOGRAM REPORT 05/22/2025 STREP A PCR Routine 03/19/2025 2:33 PM EDT Sore throat POC RAPID STREP A Routine 03/19/2025 2:1 5 PM EDT Sore throat COMPREHENSIVE METABOLIC PANEL Routine 06/08/2024 11:37 AM EST Recurrent major depressive disorder, remission status unspecified (CMS/HCC V24) COLONOSCOPY Routine 05/17/2023 DEPRESSION SCREENING Routine 10/08/2021 HEPATITIS C SCREENING Routine 10/08/2021 PAP SMEAR Routine 09/08/2017 LIPID PANEL Routine 01/12/2017 from Last 3 Months or Most Recently Relevant to Health Maintenance Results * External Mammogram Report (05/22/2025) Only the most recent of2 resultswithin the time period is included. Anatomical Region Laterality Modality Mammography us Provider [facility] IMG BI PROCEDURES Final Result * Strep A molecular study (03/19/2025 2:33 PM EDT) Pathologist [facility] GRP A Strep PCR Not Detected Not Detected LAB MICROBIOLOGY METHOD 03/19/2025 6:15 PM EDT [facility] Swab Structure of anterior region of neck / Unknown Non-blood Collection / Unknown 03/19/2025 2:33 PM EDT 03/19/2025 2:33 PM EDT Marion Rea MD LAB MICROBIOLOGY - GEN ERAL ORDERABLES Final Result [facility] [address] [place] [address], [place] [phone] * POC rapid strep A manually resulted (03/19/2025 2:15 PM EDT) Swab Structure of anterior region of neck / Unknown 03/19/2025 2:15 PM EDT us Marion Rea MD POINT OF CARE TEST ENT ER/EDIT ORDERABLES Final Result * (ABNORMAL) Comprehensive metabolic panel (06/08/2024 11:37 AM EST) [facility] Sodium 135 133 - 145 mmol/L LAB CHEMISTRY METHOD 06/08/2024 3:22 PM [facility] Potassium 4.0 3.5 - 5.5 mmol/L LAB CHEMISTRY METHOD 06/08/2024 3:22 PM [facility] Chloride 100 96 - 110 mmol/L LAB CHEMISTRY METHOD 06/08/2024 3:22 PM [facility] CO2 28 21 - 32 mmol/L LAB CHEMISTRY METHOD 06/08/2024 3:22 PM [facility] Anion Gap 7 3 - 11 LAB CHEMISTRY METHOD 06/08/2024 3:22 PM [facility] Glucose 78 70 - 100 mg/dL LAB CHEMISTRY METHOD 06/08/2024 3:22 PM [facility] BUN 22 5 - 25 mg/dL LAB CHEMISTRY METHOD 06/08/2024 3:22 PM [facility] Creatinine 1.21(H) 0.50 - 1.10 mg/dL LAB CHEMISTRY METHOD 06/08/2024 3:22 PM [facility] eGFR 52(L) >=60 mL/min/1. 73m2 LAB CHEMISTRY METHOD 06/08/2024 3:22 PM [facility] Comment:Calculation based on the Chronic Kidney Disease Epidemiology Collaboration (CKD-EPI) equation refit without adjustment for race. BUN/Creatinine Ratio 18.2 LAB CHEMISTRY METHOD 06/08/2024 3:22 PM [facility] Calcium 9.7 8.5 - 10.5 mg/dL LAB CHEMISTRY METHOD 06/08/2024 3:22 PM [facility] AST (SGOT) 19 10 - 42 unit/L LAB CHEMISTRY METHOD 06/08/2024 3:22 PM [facility] ALT (SGPT) 30 10 - 60 unit/L LAB CHEMISTRY METHOD 06/08/2024 3:22 PM [facility] Alkaline Phosphatase 137(H) 42 - 121 unit/L LAB CHEMISTRY METHOD 06/08/2024 3:22 PM [facility] Total Protein 8.5(H) 6.0 - 8.0 g/dL LAB CHEMISTRY METHOD 06/08/2024 3:22 PM [facility] Albumin 4.3 3.2 - 5.0 g/dL LAB CHEMISTRY METHOD 06/08/2024 3:22 PM [facility] Total Bilirubin 0.4 0.0 - 1.4 mg/dL LAB CHEMISTRY METHOD 06/08/2024 3:22 PM [facility] Blood Venous blood specimen / Unknown Venipuncture / Unknown 06/08/2024 11:37 AM EST 06/08/2024 11:37 AM EST Hiral Johnson MD LAB BLOOD ORDERABL ES Final Result [facility] [address] [place] [address], * Colonoscopy (05/17/2023) Colonoscopy 10 yr fu Anatomical Region Laterality Modality Other Historical Provider HEALTH MAINTENANCE Final Result * Depression Screening (10/08/2021) Depression Screening 1 yr fu Historical Provider HEALTH MAINTENANCE Final Result * Hepatitis C Screening (10/08/2021) Hepatitis C Screening abstracted Historical Provider HEALTH MAINTENANCE Final Result * Pap Smear (09/08/2017) Pap smear 3 yr fu Historical Provider HEALTH MAINTENANCE Final Result * Lipid panel (01/12/2017) Pathologist [facility] Triglycerides 206 mg/dL Cholesterol 243 mg/dL HDL 38 mg/dL Blood Venous blood specimen / Unknown Historical Provider LAB BLOOD ORDERABLES Radha l Result from Last 3 Months or Most Recently Relevant to Health Maintenance Insurance [place] [phone] Advance Directives Documents on File Type Date Recorded Patient Assembly Line Leader Expl anation Health Care Decision (hx) 09/01/2015 AD DOMINIQUE DIRECTIVE Health Care Decision (hx) 09/01/2015 AD DOMINIQUE DIRECTIVE Health Care Decision (hx) 08/26/2015 AD DOMINIQUE DIRECTIVE Health Care Decision (hx) 08/26/2015 AD DOMINIQUE DIRECTIVE Health Care Decision (hx) 08/25/2015 AD DOMINIQUE DIRECTIVE Health Care Decision (hx) 08/25/2015 AD DOMINIQUE DIRECTIVE Care Teams Director Of Sustainable Design Relationship Specialty Start Date End Date Hiral Johnson MD [address] [place] [address] PCP - General 01/04/08
--- OUTSIDE RECORDS SUMMARY | 2025-05-31 13:17 | XMS_ITS | Encounter Summary ---
Author Organization [facility] Address [address] [place] [address] Care Team Providers Care Business Support Administrator Name Role Phone Hiral Johnson Primary Care Provide r Encounter Details Date Type Department Care Team (Late st Contact Info) Description 09/10/2021 PickliveharClassPass Message Intial Department [address] [place] [phone] Mychart, Generic Provider [address] [place], [place] [id number] Questionnaire Submission Social History Tobacco Use Types [...] on filedocumented in this encounter Care Teams Business Support Administrator Relationship Specialty Start Date End Date Hiral Johnson PCP - General Internal Medicine 03/02/21 documented as of this encounter
--- OUTSIDE RECORDS SUMMARY | 2025-05-31 13:17 | XMS_ITS | Encounter Summary ---
Author Organization [facility] Address [address] [place] [address] Care Team Providers Care Client Care Consultant Name Role Phone Hiral Johnson Primary Care Provide r Encounter Details Date Type Department Care Team (Late st Contact Info) Description 09/10/2021 ClerkyharMOOVIA Message Intial Department [address] [place] [phone] Mychart, Generic Provider [address] [place], [place] [id number] Questionnaire Submission Social History Tobacco Use Types [...] on filedocumented in this encounter Care Teams Client Care Consultant Relationship Specialty Start Date End Date Hiral Johnson PCP - General Internal Medicine 03/02/21 documented as of this encounter
--- OUTSIDE RECORDS SUMMARY | 2025-05-31 13:18 | XMS_ITS | Clinical Summary ---
Author Organization [facility] Address [address] [place] [address] Phone Care Team Providers Care Lead Pony Rider Name Role Phone Unknown, Unknown Primary Care Provider Dash flores Self-Referred, Patient Unavailable Unavailab le Allergies Active Allergy Reactions Criticality Noted Date Comments [place] Dermatitis 05/04/2021 Citalopram Hydrobromide Hives 04/15/2011 Food Allergy Formula 02/22/2014 almonds Gabapentin Hives,Unknown 05/19/2021 Ibuprofen 2024 Other Reaction(s): kidney disease Lamotrigine Hives,Rash Low 08/12/2008 Naproxen Sodium 2024 Other Reaction(s): kidney disease Oxcarbazepine Hives 10/27/2010 Paroxetine Other (See Comments),Unknown 08/12/2008 [place] Itching 05/04/2021 itching throat and lips itching [...] file Insurance MEDICARE PART A & B [facility] MEDIC[facility] REPLACEMENT [address] [place] [id number] MEDICARE PART A & B [facility] MEDICARE REPLACEMENT [address] [place] [address] MEDICARE PART A & B [place] A & B HEALTH MEDICARE PART A & B [place] [facility] MEDICARE REPLACEMENT MEDICARE PART A & B [place] PART A & B [facility] [employer] PPO MEDICARE REPLACEMENT MEDICARE PART A & B [place] [facility] MEDICARE REPLACEMENT MEDICARE PART A & B [place] [employer] PPO MEDICARE REPLACEMENT [facility] INSURANCE Care Teams Lead Pony Rider Relationship Specialty Start Date End Date Unknown, Unknown, PCP - General 06/11/21 Self-Referred, Patient Referring Physician 06/11/21 Additional Source Comments The information contained in this document represents components of the legal health record. It is not the complete legal health record.[facility]
--- OUTSIDE RECORDS SUMMARY | 2025-05-31 13:18 | XMS_ITS | Patient Health Record ---
Author [facility] Address [address] [place] [address] Care Team Providers Care Pari Mutuel Clerk Name Role Phone Hiral Nunes Primary Care Provide r Unavailable Flory Mcintosh Unavailable [phone] Allergies Allergen (clinical drug ingredient) Drug/Non Drug [...] Activ e Naftin 2 % 1 application Dry Molder ally Apply twice a day to toenails; [...] Status Risk Notes Problem Acquired hallux valgus (56592648) Hallux valgus (acquired), right foot (M20.11) Active confirmed Vital Signs Blood pressure diastolic 80 mm Hg 11/27/2024 Height 5ft2in in 11/27/2024 Blood pressure systolic 124 mm Hg 11/27/2024 Weight 180 lbs 11/27/2024 BMI 32.92 kg/m2 11/27/2024 Encounters Encounter Location Date Provider Diagnosis [address] [address] 09/07/2024 Flory Mcintosh Pain in right toe(s) M79.674 ; Onychomycosis B35.1 ; Pain in left toe(s) M79.675 ; Pain in right foot M79.671 ; Pain in right ankle and joints of right foot M25.571 ; Bursitis of right foot M77.51 and Hallux valgus (acquired), right foot M20.[address] [facility] [address] 11/27/2024 Flory Mcintosh Onychomycosis B35.1 ; Ingrown nail L60.0 ; Pain in right toe(s) M79.674 and Pain in left toe(s) M79.[address] [address] 06/26/2024 Flory Mcintosh [address] [address] 02/06/2025 Flory Mcintosh Assessments Encounter Date Diagnosis [...] Insured Coverage Start Date Coverage End Date [employer]ah Claims [address] [address] [place] [address] [id number] Metz Cortney Self - patient is the [...]
--- OUTSIDE RECORDS SUMMARY | 2025-05-31 13:18 | XMS_ITS | Clinical Summary ---
Author Organization [facility] Address [address] [place] [address] Care Team Providers Care Adult Care Manager Name Role Phone Hiral Johnson Primary Care Provide r Allergies Active Allergy Reactions Criticality Noted Date Comments [place] Dermatitis 05/04/2021 Gabapentin Hives 05/19/2021 [place] Itching 05/04/2021 itching throat and lips Sertraline [...] 08/29/2021, 03/31/2021, Additional history exists Insurance [facility] Advance Directives Documents on File Type Date Recorded Patient Tobacco Sample Puller Expl anation Health Care Proxy 05/04/2021 2:38 PM Health Care Proxy 05/04/2021 12:31 PM * Full Code (Latest Code Status on File) Date Activated Date Inactivated Comments 05/18/2021 11:03 AM 05/21/2021 4:24 PM Care Teams Adult Care Manager Relationship Specialty Start Date End Date Hiral Johnson PCP - General Internal Medicine 03/02/21
== END 2025-05-31 13:16 | disposition home or self-care (01) ==
LOC: HO.US 13:15
PROVIDERS: PCP Internal Medicine; Visit Provider Urology
DX: C64.2 Malignant neoplasm of left kidney, except renal pelvis (principal)
CPT/HCPCS: 71045; 76775

== ENCOUNTER → 2025-05-31 13:19 | Outpatient (BNV) | payer MEDICARE, MEDICAID, SELFPAY | PROVIDERS: PCP Internal Medicine; Visit Provider Radiology Diagnostic Radiology | DX: C64.2 Malignant neoplasm of left kidney, except renal pelvis (principal) | CPT/HCPCS: 71045; 76775 ==